=== PATIENT | female | born 1995 | race African-American/Black ===

== ENCOUNTER 2016-07-26 22:25 | Emergency (ER) | payer MEDICAID ==
[2016-07-26 22:58] VITALS: BP 132/77
== END 2016-07-27 01:00 | disposition left against medical advice (07) ==
LOC: ER 22:25
DX: Z53.9 Procedure and treatment not carried out, unspecified reason (principal); R10.30 Lower abdominal pain, unspecified

== ENCOUNTER → 2016-09-06 | Outpatient (CLI) | payer MEDICAID | LOC: RAD 07:47 | PROVIDERS: ATTEND Nurse Practitioner Women's Health | DX: Z34.82 Encounter for supervision of other normal pregnancy, second trimester (principal) | CPT/HCPCS: 76805 ==

== ENCOUNTER 2016-09-16 16:59 | Emergency (ER) | payer OTHER, MEDICAID ==
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
[2016-09-16 18:09] VITALS: BP 108/61
== END 2016-09-16 18:09 | disposition admitted as inpatient to this hospital (09) ==
LOC: ER 16:59
DX: O9A.213 Injury, poisoning and certain other consequences of external causes complicating pregnancy, third trimester (principal); T14.90 Injury, unspecified; O26.893 Other specified pregnancy related conditions, third trimester; R10.9 Unspecified abdominal pain; O99.519 Diseases of the respiratory system complicating pregnancy, unspecified trimester; J45.909 Unspecified asthma, uncomplicated; Z3A.00 Weeks of gestation of pregnancy not specified
CPT/HCPCS: 99284

== ENCOUNTER 2016-09-16 18:03 | Outpatient (CLI) | payer OTHER, MEDICAID ==
--- NOTE | 2016-09-16 20:00 | L&D Flow Sheet ---
LD Flowsheet Datetime Report Generated by CPN: 09/16/2016 20:00 Datetime: 09/16/2016 19:56 Vital Signs NBP Sys/Sadie/Mean (mmHg): 107 (QS system process) : 57 (QS system process) : 78 (QS system process) Pulse: 75 (QS system process) Datetime: 09/16/2016 19:50 Vital Signs NBP Sys/Sadie/Mean (mmHg): 116 (QS system process) : 59 (QS system process) : 81 (QS system process) Pulse: 86 (QS system process) Datetime: 09/16/2016 19:39 Comments: pt done eating. pt up to bathroom to obtain CCUA. pt to return to bed for FHR tracing (Britany Chalman, RN) Datetime: 09/16/2016 19:27 Vital Signs NBP Sys/Sadie/Mean (mmHg): 133 (QS system process) : 87 (QS system process) : 105 (QS system process) Pulse: 80 (QS system process) Comments: unable to trace FHR while pt sitting up eating. Will obtain FHR when pt finished (Britany Manzo, RN) Datetime: 09/16/2016 19:26 Communication Additional Nursing Comments: report from H. Christiane and care assumed (Britany Chalman, RN) Datetime: 09/16/2016 19:25 Communication Comments: Report to A. Chalman, RN. Care relinquished (Arlet Coates, RN) Datetime: 09/16/2016 19:23 Communication Comments: RN remains at bedside attempting to locate fhts. (Arlet Coates, RN) Datetime: 09/16/2016 19:03 Patient Care Patient Care Comments: patient sitting up (Lulú Christiane, RN) Datetime: 09/16/2016 18:58 Contraction Comments: RN at bedside attempting to locate fhts. Baby audibly moving on monitor (Lulú Christiane, RN) Datetime: 09/16/2016 18:57 Vital Signs NBP Sys/Sadie/Mean (mmHg): 126 (QS system process) : 67 (QS system process) : 90 (QS system process) Pulse: 82 (QS system process) Datetime: 09/16/2016 18:48 Comments: Rn at bedside attempting to locate fhts (Lulú Christiane, RN) Datetime: 09/16/2016 18:45 Uterine Activity Frequency (min): 0 (Lulú Christiane, RN) Resting Tone (Palpate): Relaxed (Lulú Christiane, RN) Assessment A Monitor Mode: External US (Lulú Christiane, RN) FHR Baseline Rate : 140 (Lulú Christiane, RN) Variability: Moderate 6-25 bpm (Lulú Christiane, RN) Accelerations: None (Lulú Christiane, RN) Decelerations: None (Lulú Christiane, RN) Datetime: 09/16/2016 18:29 Vaginal Exam Vaginal Bleeding: None (Lulú Christiane, RN) Maternal Assessment Level of Consciousness: Fully Conscious (Lulú Christiane, RN) DTR's/Clonus: DTRs 1+; No Clonus (Lulú Christiane, RN) Headache: Generalized (Lulú Christiane, RN) Breath Sounds, Left: Clear and Equal (Lulú Christiane, RN) Breath Sounds, Right: Clear and Equal (Lulú Christiane, RN) Nausea/Vomiting: Denies (Lulú Christiane, RN) RUQ Epigastric Pain: Denies (Lulú Christiane, RN) Datetime: 09/16/2016 18:27 Vital Signs NBP Sys/Sadie/Mean (mmHg): 113 (QS system process) : 57 (QS system process) : 79 (QS system process) Pulse: 85 (QS system process)
[2016-09-16 20:14] LABS: APPEARANCE,URINE SLIGHTLY-CLOUDY; BILIRUBIN,URINE NEGATIVE (NEGATIVE); GLUCOSE, URINE NEGATIVE (NEGATIVE); KETONES,URINE NEGATIVE (NEGATIVE); LEUKOCYTE ESTERASE,URINE SMALL (NEGATIVE); NITRITE,URINE NEGATIVE (NEGATIVE); PROTEIN,URINE NEGATIVE (NEGATIVE)
[2016-09-16 20:22] LABS: URINE BARBITURATES SCREEN NEGATIVE; URINE METHADONE SCREEN NEGATIVE; URINE OPIATES LOW NEGATIVE; URINE PHENCYCLIDINE SCREEN NEGATIVE
== END 2016-09-16 20:55 | disposition home or self-care (01) ==
LOC: LC 18:03
PROVIDERS: ATTEND Obstetrics & Gynecology
PROC: 4A1HXCZ Monitoring of Products of Conception, Cardiac Rate, External Approach (ICD-10-PCS; principal; 2016-09-16)
DX: O26.893 Other specified pregnancy related conditions, third trimester (principal); R51 Headache; Z3A.36 36 weeks gestation of pregnancy
CPT/HCPCS: 59025; 81001; 80307; G0480 ×2

== ENCOUNTER 2016-10-30 01:01 | Emergency (ER) | payer MEDICAID, OTHER ==
[2016-10-30 01:09] VITALS: BP 132/81
--- NOTE | 2016-10-30 01:36 | ER Document Report ---
ED General - General Chief Complaint: Foreign Body in Ear Stated Complaint: RIGHT EAR PAIN Time Seen by Provider: 10/30/16 01:23 Notes: Patient is a 21-year-old female presents with concerns of a foreign body in her right ear. States she is worried or that a tyler has crawled into her right ear canal. Describes a constant, itching, feeling of a foreign body to the ear. No history of similar symptoms in the past. She tried flushing the ear with water without improvement of her symptoms. Nothing worsens or symptoms. She arrived by EMS. TRAVEL OUTSIDE OF THE [place] IN LAST 30 DAYS: No - Related Data Allergies/Adverse Reactions: No Known Drug Allergies Allergy (Verified 10/30/16 01:39) tomato [Tomato] Adverse Reaction (Verified 10/30/16 01:39) Past Medical History - General Information source: Patient - Social History Smoking Status: Never Smoker Frequency of alcohol use: None Drug Abuse: None Lives with: Family Family History: Reviewed & Not Pertinent - Past Medical History Cardiac Medical History: Denies: Hx Congestive Heart Failure, Hx Coronary Artery Disease, Hx Hypertension, Hx Pulmonary Embolism, Hx Heart Murmur Pulmonary Medical History: Reports: Hx Asthma Denies: Hx Bronchitis, Hx COPD, Hx Pneumonia, Hx Sleep Apnea, Hx Tuberculosis Renal/ Medical History: Denies: Hx Peritoneal Dialysis Malignancy Medical History: Denies: Hx Leukemia, Hx Lung Cancer GI Medical History: Reports: Hx Ulcer Infectious Medical History: Denies: Hx HIV Past Surgical History: Denies: Hx Cardiac Catheterization, Hx Pacemaker, Hx Valve Replacement, Hx Vascular Surgery - Immunizations Immunizations up to date: Yes Hx Diphtheria, Pertussis, Tetanus Vaccination: Yes Review of Systems - Review of Systems Notes: Constitutional: Negative for fever. Cardiovascular: Negative for chest pain. Respiratory: Negative for shortness of breath. Gastrointestinal: Negative for vomiting Musculoskeletal: Negative for back pain. Skin: Negative for rash. Neurological: Negative for weakness or numbness. 10 point ROS negative except as marked above and in HPI. Physical Exam - Vital signs Vitals: Temp Pulse Resp BP Pulse Ox 98.4 F 86 18 132/81 H 99 10/30/16 01:07 10/30/16 01:07 10/30/16 01:07 10/30/16 01:07 10/30/16 01:07 Interpretation: Normal Notes: PHYSICAL EXAMINATION: GENERAL: Well-appearing, well-nourished and in no acute distress. HEAD: Atraumatic, normocephalic. EYES: sclera anicteric, conjunctiva are normal. ENT: There is a small amount of impacted cerumen in the right middle ear canal which was removed without difficulty. There is no evidence of a foreign body. NECK: Normal range of motion LUNGS: Normal work of breathing HEART: 2+ radial pulses bilaterally EXTREMITIES: no pitting or edema. No cyanosis. NEUROLOGICAL: No focal neurological deficits. Moves all extremities spontaneously and on command. PSYCH: Normal mood, normal affect. SKIN: Warm, Dry, normal turgor, no rashes or lesions noted. Course - Re-evaluation Re-evalutation: 10/30/16 01:34 Patient presents with a feeling of a foreign body in her right ear. A piece of impacted cerumen was removed. TM was otherwise clear. No evidence of otitis media or otitis externa. No additional concerns. At this time will discharge with return precautions and follow-up recommendations. Verbal discharge instructions given a the bedside and opportunity for questions given. Medication warnings reviewed. Patient is in agreement with this plan and has verbalized understanding of return precautions and the need for primary care follow-up in the next 24-72 hours. - Vital Signs Vital signs: Temp Pulse Resp BP Pulse Ox 98.4 F 86 18 132/81 H 99 10/30/16 01:07 10/30/16 01:07 10/30/16 01:07 10/30/16 01:07 10/30/16 01:07 Discharge - Discharge Clinical Impression: Discomfort of right ear Condition: Good Disposition: HOME, SELF-CARE Additional Instructions: Return for any additional concerns that you may have. The sensation of a foreign body in your ear may last for the next several days but there is nothing remaining in her ear after we removed the piece of wax.
== END 2016-10-30 01:41 | disposition home or self-care (01) ==
LOC: ER 01:01
DX: H61.21 Impacted cerumen, right ear (principal); L29.9 Pruritus, unspecified; J45.909 Unspecified asthma, uncomplicated
CPT/HCPCS: 99282

== ENCOUNTER 2016-12-05 19:47 | Outpatient (CLI) | payer MEDICAID ==
[2016-12-05 20:25] LABS: APPEARANCE,URINE CLOUDY; BILIRUBIN,URINE NEGATIVE (NEGATIVE); GLUCOSE, URINE NEGATIVE (NEGATIVE); KETONES,URINE NEGATIVE (NEGATIVE); LEUKOCYTE ESTERASE,URINE TRACE (NEGATIVE); NITRITE,URINE NEGATIVE (NEGATIVE); PROTEIN,URINE NEGATIVE (NEGATIVE)
[2016-12-05 20:37] LABS: URINE BARBITURATES SCREEN NEGATIVE; URINE METHADONE SCREEN NEGATIVE; URINE OPIATES LOW NEGATIVE; URINE PHENCYCLIDINE SCREEN NEGATIVE
--- NOTE | 2016-12-09 08:58 | Non Stress Test Report ---
Non Stress Test Datetime Report Generated by CPN: 12/09/2016 08:57 DEMOGRAPHIC EGA NST: 38.5 INDICATION Indication for Study: Other Indication for Study (NST) Other: LC MONITORING Monitor Explained: Monitor Explained; Test Explained; Other Time on Monitor: 12/05/2016 20:00 Time off Monitor: 12/05/2016 20:55 NST Duration: 55 NST INTERVENTIONS NST Interventions: PO Hydration Physician Notified NST: Dr. St BABY A: [id number] BABY A Movement : Present Movement : Present Contraction Frequency : 0 FHR Baseline : 125 Accelerations : 15X15 Variability : Moderate 6-25bpm NST Review: Meets Criteria for Reactive NST NST Review and Verified By : Sheldon Sharp RN NST Results: Reactive NST REPORT Report Trigger: Send Report
== END 2016-12-05 21:13 | disposition home or self-care (01) ==
LOC: LC 19:47
PROVIDERS: ATTEND Obstetrics & Gynecology
PROC: 4A1HXCZ Monitoring of Products of Conception, Cardiac Rate, External Approach (ICD-10-PCS; principal; 2016-12-05)
DX: O47.1 False labor at or after 37 completed weeks of gestation (principal); O99.613 Diseases of the digestive system complicating pregnancy, third trimester; K59.00 Constipation, unspecified; Z3A.38 38 weeks gestation of pregnancy
CPT/HCPCS: 59025; 80307; 81005

== ENCOUNTER 2016-12-09 09:53 | Inpatient (IN) | payer MEDICAID ==
--- NOTE | 2016-12-09 11:21 | RADIOLOGY REPORT (SQ) ---
EXAM DESCRIPTION: U/S OB LIMITED COMPLETED DATE/TIME: 12/09/2016 10:58 am REASON FOR STUDY: fani-growth scan COMPARISON: None. TECHNIQUE: Limited transvaginal grayscale ultrasound for evaluation of specific requested obstetrica l parameters. LIMITATIONS: None. FINDINGS: FANI: 7.5 cm. FHR: 136 beats per minute. PRESENTATION: Cephalic. OTHER: measurements correspond to a 35 week 3 day gestation. The estimated weight is 268 2 g +/-390 7 g. Posterior placenta is identified. IMPRESSION: LIMITED OBSTETRICAL ULTRASOUND WITH MEASURED PARAMETERS DELINEATED ABOVE. Trimester of : Third trimester - 28 weeks to delivery. TECHNICAL DOCUMENTATION: JOB ID: [id number] [employer]- All Rights Reserved
--- NOTE | 2016-12-09 11:42 | Non Stress Test Report ---
Non Stress Test Datetime Report Generated by CPN: 12/09/2016 11:42 DEMOGRAPHIC EGA NST: 39.5 INDICATION Indication for Study: Other Indication for Study (NST) Other: postdates 39.5 VITAL SIGNS Temperature - NST: 97.7 Pulse - NST: 100 RESP - NST: 18 NBPSYS NST: 130 NBPDIA NST: 71 MONITORING Monitor Explained: Monitor Explained; Test Explained; Patient Verbalized Understanding Time on Monitor: 12/09/2016 10:09 NST INTERVENTIONS NST Interventions: PO Hydration Physician Notified NST: H John CNM BABY A Movement : Present Contraction Frequency : 0 FHR Baseline : 125 Accelerations : 15X15 Decelerations : None Variability : Moderate 6-25bpm NST Review: Meets Criteria for Reactive NST NST Review and Verified By : Afshin Sow [facility] NST Results: Reactive NST REPORT Report Trigger: Send Report
[2016-12-09] MEDS ORDERED: RINGERS SOLUTION,LACTATED 300 ML IV ONE ×2 (12:23→23:37)
[2016-12-09] MEDS ORDERED: OXYTOCIN/NORMAL SALINE 1,000 ML IV PRN (12:23)
[2016-12-09] MEDS ORDERED: RINGERS SOLUTION,LACTATED 1,000 ML IV PRN ×2 (12:23→23:37)
[2016-12-09 12:56] LABS: ABSOLUTE EOSINOPHILS # (AUTO) 0.1 10^3/uL (0.0-0.6); ABSOLUTE LYMPHOCYTES (AUTO) 1.8 10^3/uL (0.5-4.7); ABSOLUTE MONOCYTES (AUTO) 0.9 10^3/uL (0.1-1.4); ABSOLUTE NEUT (AUTO) 5.5 10^3/uL (1.7-8.2); BASOPHILS % (AUTO) 0.6 % (0-2); EOSINOPHILS % (AUTO) 1.4 % (0-6); HEMATOCRIT 32.5 % (36.0-47.0); HEMOGLOBIN 10.2 g/dL (12.0-15.5); HGB HCT DIFFERENCE -1.9; LYMPHOCYTES % (AUTO) 21.4 % (13-45); MEAN CORPUSCULAR HEMOGLOBIN 26.4 pg (27.0-33.4); MEAN CORPUSCULAR HGB CONC 31.5 g/dL (32.0-36.0); MEAN CORPUSCULAR VOLUME 84 fl (80-97); MONOCYTES % (AUTO) 10.4 % (3-13); RED BLOOD COUNT 3.88 10^6/uL (3.72-5.28); SEGMENTED NEUTROPHILS % (AUTO) 66.2 % (42-78); WHITE BLOOD COUNT 8.3 10^3/uL (4.0-10.5)
[2016-12-09] MEDS ORDERED: OXYTOCIN/NORMAL SALINE 0 UNIT/0 ML RTUINJ ONE (13:44)
--- NOTE | 2016-12-09 17:00 | L&D Progress Notes ---
PROGRESS NOTES Datetime Report Generated by CPN: 12/09/2016 16:59 PROGRESS NOTE Impression: Normal Progression of Labor; Reassuring Heart Rate Procedures: Artificial ROM; Sterile Vag Exam Plan: Continue Present Management Informed Consent Obtained: Vaginal Delivery Vital Signs : Reviewed Comment: Denies need for pain medication AROM clear Continue pitocin anticipate VAGINAL EXAM Dilatation: 4 Dilatation: 2 Effacement: 80 Effacement: 60 Station: 0 Station: -1 Contractions: 2-4 Contractions: irrewgular MEMBRANES Membranes: Ruptured Membranes: Intact Amniotic Fluid Color: Clear FETUS A FHR - Baseline: 135 Monitoring: External US Variability: Moderate 6-25bpm Accelerations: 15X15 Decelerations: None FHR Category: Category I Estimated Weight (gm): 2682 Presentation: Vertex SIGNATURE SIGNATURE: [id number];,[id number] SIGNATURE: [id number] SIGNATURE: [id number] Assignment: Alicia Jarvis MD Signature: with User ID: [email or web address] : with User ID: Lisa
[2016-12-09] MEDS ORDERED: MISOPROSTOL 0.2 MG TABLET ONE ×2 (17:26→21:03)
[2016-12-09] MEDS ORDERED: OXYTOCIN/NORMAL SALINE 20 UNIT/1,000 ML RTUINJ ONE ×2 (17:26→21:03)
[2016-12-09] MEDS ORDERED: LIDOCAINE 1% INJ-PF (10 MG/ML) 30 ML SDV ONE ×2 (17:26→21:03)
[2016-12-09 17:27] LABS: APPEARANCE,URINE CLEAR; BILIRUBIN,URINE NEGATIVE (NEGATIVE); GLUCOSE, URINE NEGATIVE (NEGATIVE); KETONES,URINE 20 mg/dL (NEGATIVE); LEUKOCYTE ESTERASE,URINE NEGATIVE (NEGATIVE); NITRITE,URINE NEGATIVE (NEGATIVE); PROTEIN,URINE NEGATIVE (NEGATIVE); URINE SPECIFIC GRAVITY 1.018
[2016-12-09 17:45] LABS: URINE BARBITURATES SCREEN NEGATIVE; URINE METHADONE SCREEN NEGATIVE; URINE OPIATES LOW NEGATIVE; URINE PHENCYCLIDINE SCREEN NEGATIVE
[2016-12-09] MEDS ORDERED: PHENYLEPHRINE HCL INJ/PF 10 MG/1 ML SDV ONE (22:54)
[2016-12-09] MEDS ORDERED: EPHEDRINE SULFATE INJ 50 MG/1 ML AMPULE ONE (22:54)
[2016-12-09] MEDS ORDERED: FENTANYL CITRATE INJ/PF 100 MCG/2 ML AMPUL ONE (22:54)
[2016-12-09] MEDS ORDERED: BUPIVACAINE HCL 0.25 % INJ/PF (2.5 MG/1 ML) 30 ML VIAL ONE (22:55)
[2016-12-09] MEDS ORDERED: FENTANYL/BUPIVACAINE/NS/PF 200 MCG/100 ML RTUINJ EPI ONE (22:55)
[2016-12-09] MEDS ORDERED: DEXTROSE 5%-LACTATED RINGERS 1,000 ML IV PRN (23:32)
[2016-12-10] MEDS ORDERED: GLYCERIN/WITCH HAZEL LEAF 1 EACH MED..PAD TP PRN (02:08)
[2016-12-10] MEDS ORDERED: DIPH/PERTUSS(ACELL)/TETANUS VAC/PF 0.5 ML SYR (>=10YO) IM PRN (02:08)
[2016-12-10] MEDS ORDERED: PROMETHAZINE HCL 25 MG TABLET PO PRN (02:08)
[2016-12-10] MEDS ORDERED: PSEUDOEPHEDRINE HCL 30 MG TABLET PO PRN (02:08)
[2016-12-10] MEDS ORDERED: MEASLES,MUMPS&RUBELLA VACC/PF 0.5 ML VIAL SUBCUT PRN (02:08)
[2016-12-10] MEDS ORDERED: MAGNESIUM HYDROXIDE SUSP 30 ML UDCUP PO PRN (02:08)
[2016-12-10] MEDS ORDERED: OXYTOCIN/NORMAL SALINE 1,000 ML IV PRN (02:08)
[2016-12-10] MEDS ORDERED: DIPHENHYDRAMINE HCL 25 MG CAPSULE PO PRN (02:08)
[2016-12-10] MEDS ORDERED: BENZOCAINE/MENTHOL AEROSOL SPRAY 56 ML TOP PRN (02:08)
[2016-12-10] MEDS ORDERED: PROMETHAZINE HCL 25 MG SUPP.RECT PR PRN (02:08)
[2016-12-10] MEDS ORDERED: ACETAMINOPHEN WITH CODEINE #3 TABLET PO PRN (02:08)
[2016-12-10] MEDS ORDERED: PROMETHAZINE HCL INJ 25 MG/1 ML VIAL IV PRN (02:08)
[2016-12-10] MEDS ORDERED: NA PHOS,M-B/NA PHOS,DI-BA (ADULT) 133 ML ENEMA PR PRN (02:08)
[2016-12-10] MEDS ORDERED: ZOLPIDEM TARTRATE 5 MG TABLET PO PRN (02:08)
[2016-12-10] MEDS ORDERED: DIBUCAINE 1% OINTMENT 28 GM TP PRN (02:08)
[2016-12-10] MEDS ORDERED: ACETAMINOPHEN 650 MG SUPP.RECT PR PRN (02:08)
[2016-12-10] MEDS: IBUPROFEN 800 MG TABLET PO SCH ×3 (03:33→22:04)
[2016-12-10] MEDS ORDERED: IBUPROFEN 800 MG TABLET ONE (03:34)
--- NOTE | 2016-12-10 04:05 | Delivery Summary ---
Del Sum A-C Datetime Report Generated by CPN: 12/10/2016 04:05 DELIVERY PERSONNEL DELIVERY PERSONNEL: [id number] Delivery Doctor:: Alicia Jarvis MD Labor and Delivery Nurse:: Gissel Alvarez RN Nursery Nurse:: Sharmila Keenan RN Nursing Clinical Director/MECHANICAL FITTER: Gloria Delgado CNA MATERNAL INFORMATION Delivery Anesthesia: Epidural Medications After Delivery: Pitocin Bolus-Please Comment Meds After Delivery Comment: Pitocin 20 units/1000 mL NS following delivery of placenta Estimated Blood Loss (ml): 200 Maternal Complications: None Provider Comments: VFI delivered in KAREN presentation with loose body cord. Shoulders and body delivered w/o difficulty. Cord doubly clamped and cut and to maternal abdomen for NRP. Placenta delivered intact spontaneously. FF at U. Good hemostasis post repair. Apgars 7/9. weight pending. placenta sent for IUGR. LABOR SUMMARY EDC: 12/11/2016 00:00 No. Babies in Womb: 1 Attempted: No Labor Anesthesia: Epidural LABOR INFORMATION Reason for Induction: Intrauterine Growth Retardation Onset of Labor: 12/09/2016 16:52 Complete Dilatation: 12/10/2016 01:35 Oxytocin: Induction Group B Beta Strep: negative Antibiotics # of Doses: 0 Antibiotics Time of Last Dose: n/a Steroids Given: None Reason Steroids Not Administered: Not Applicable MEMBRANES Membranes Rupture Method: Artificial Rupture of Membranes: 12/09/2016 16:52 Length of Rupture (hr): 8.95 Amniotic Fluid Color: Clear Amniotic Fluid Amount: Moderate Amniotic Fluid Odor: None STAGES OF LABOR Stage 1 hr: 8 Stage 1 min: 43 Stage 2 hr: 0 Stage 2 min: 14 Stage 3 hr: 0 Stage 3 min: 2 Total Time in Labor hr: 8 Total Time in Labor min: 59 VAGINAL DELIVERY Episiotomy: None Laceration Extension: First Degree Laceration Type: Vaginal Laceration Repair: Yes Laceration Repair Note: superficial first degree labial laceration repaired on left for hemostasis. Sponge Count Correct: Yes Sharps Count Correct: Yes CSECTION DELIVERY Primary Indication: N/A Secondary Indication: N/A CSection Incidence: N/A Labor: N/A Elective: N/A CSection Incision: N/A BABY A INFORMATION Delivery Date/Time: 12/10/2016 01:49 Method of Delivery: Vaginal Born in Route : No : N/A Forceps: N/A Vacuum Extraction: N/A Shoulder Dystocia : No PRESENTATION/POSITION BABY A Presentation: Cephalic Cephalic Presentation: Vertex Vertex Position: Left Occipital Anterior Breech Presentation: N/A PLACENTA INFORMATION BABY A Placenta Delivery Time : 12/10/2016 01:51 Placenta Method of Delivery: Spontaneous Placenta Status: Delivered SCORES BABY A Heart Rate 1 min: >100 bpm Resp Effort 1 min: Slow, Irregular Reflex Irritability 1 min: Cough or Sneeze or Pulls Away Muscle Tone 1 min: Active Motion Color 1 min: Blue/Pale Resuscitation Effort 1 min: Oxygen; PPV/NCPAP SCORE 1 MIN: 7 Heart Rate 5 min: >100 bpm Resp Effort 5 min: Good Cry Reflex Irritability 5 min: Cough or Sneeze or Pulls Away Muscle Tone 5 min: Active Motion Color 5 min: Body [place], Extremities Blue Resuscitation Effort 5 min: N/A SCORE 5 MIN: 9 INFORMATION BABY A Gestational Age at Delivery: 39.6 Gestational Status: Full Term- 39- 40.6 Weeks Infant Outcome : Liveborn Condition : Stable Sex: Female IDENTIFICATION BABY A Verification Date/Time: 12/10/2016 02:47 ID Band Number: [id number] Mother's Name Verified: Yes [facility] RN [facility] Additional Verifying Personnel: RN Keenan/RN Kay WEIGHT/LENGTH BABY A Infant Birthweight (gm): 2836 Weight (lb): 6 Weight (oz): 4 Length (in): 18.00 Length (cm): 45.72 CORD INFORMATION BABY A No. Cord Vessels: 3 Nuchal Cord : N/A Nuchal Cord- Other: body cord Cord Blood Taken: Yes-For Storage (Mom's Blood type +) Infant Suction: Mouth; Nose ASSESSMENT BABY A Complications: Multiple Variable Decels Physical Findings at Delivery: Within Normal Limits Respirations: Appears Normal Skin to Skin: Yes Crop Roller/ALS Called : No Infant Care By: Jocelyn Keenan, RN and RN Kay Transferred To: Remains with Mother BABY B INFORMATION : N/A SIGNATURES Signature: with User ID: [email or web address]
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
[2016-12-10] MEDS: ACETAMINOPHEN WITH CODEINE #3 TABLET PO PRN ×2 (08:17→12:17)
--- NOTE | 2016-12-10 10:09 | PDOC PROGRESS REPORT ---
Subjective-OB Subjective: Post Delivery Day: 1 21 year old. Denies any needs at this time, states lochia is pain is stable, voiding without difficulty. Physical Exam (OB) Vital Signs: Temp Pulse Resp BP Pulse Ox 97.8 F 89 16 121/76 100 12/10/16 08:04 12/10/16 08:04 12/10/16 08:04 12/10/16 08:04 12/10/16 04:30 Intake & Output 12/09/16 12/10/16 12/11/16 06:59 06:59 06:59 Weight 98.4 kg - Lochia Lochia Amount: Small 10-25 ml Lochia Color: Rubra/Red - Abdomen Description: Soft, Round Hernia Present: No Fundal Description: Firm, Midline Fundal Height: u/u - u/2 Objective-Diagnostic Laboratory: 12/09/16 12:37 12/09/16 12/09/16 12/09/16 12:37 12:37 16:30 WBC 8.3 RBC 3.88 Hgb 10.2 L Hct 32.5 L MCV 84 MCH 26.4 L MCHC 31.5 L RDW 14.0 Plt Count 353 Seg Neutrophils % 66.2 Lymphocytes % 21.4 Monocytes % 10.4 Eosinophils % 1.4 Basophils % 0.6 Absolute Neutrophils 5.5 Absolute Lymphocytes 1.8 Absolute Monocytes 0.9 Absolute Eosinophils 0.1 Absolute Basophils 0.0 Urine Color YELLOW Urine Appearance CLEAR Urine pH 6.0 Ur Specific [place] 1.018 Urine Protein NEGATIVE Urine Glucose (UA) NEGATIVE Urine Ketones 20 H Urine Blood NEGATIVE Urine Nitrite NEGATIVE Ur Leukocyte Esterase NEGATIVE Blood Type A POSITIVE Antibody Screen NEGATIVE Assessment and Plan(PN) - Assessment and Plan (1) Acute blood loss anemia Is this a current diagnosis for this admission?: YesPlan: ferrous sulfate increase dietary iron (2) Vaginal delivery Is this a current diagnosis for this admission?: YesPlan: routine pp care - Time Spent with Patient Time with patient: Less than 15 minutes Critical Time spent with patient: Less than 15 minutes Medications reviewed and adjusted accordingly: Yes - Disposition Anticipated Discharge: Home Within: within 24 hours
[2016-12-10] MEDS: FAMOTIDINE 20 MG TABLET PO SCH ×2 (10:58→22:04)
[2016-12-10] MEDS: DOCUSATE SODIUM 100 MG CAPSULE PO SCH ×2 (10:58→18:44)
[2016-12-10] MEDS: FERROUS SULFATE 325 MG TABLET PO SCH ×2 (10:59→18:44)
[2016-12-10] MEDS: PRENATAL VITAMIN W-O CA NO5/FE FUMARATE/FA CAPSULE PO SCH (10:59)
[2016-12-10] MEDS: SENNOSIDES/DOCUSATE 8.6-50 MG 1 EACH TABLET PO SCH (10:59)
[2016-12-10] MEDS ORDERED: KETOROLAC TROMETHAMINE INJ/PF 30 MG/1 ML SDV IM ONE (14:00)
[2016-12-11] MEDS: ACETAMINOPHEN WITH CODEINE #3 TABLET PO PRN (02:30)
[2016-12-11] MEDS: IBUPROFEN 800 MG TABLET PO SCH (05:34)
[2016-12-11 07:20] LABS: HEMATOCRIT 28.9 % (36.0-47.0); HEMOGLOBIN 9.2 g/dL (12.0-15.5); HGB HCT DIFFERENCE -1.3; MEAN CORPUSCULAR HEMOGLOBIN 26.5 pg (27.0-33.4); MEAN CORPUSCULAR HGB CONC 31.9 g/dL (32.0-36.0); MEAN CORPUSCULAR VOLUME 83 fl (80-97); RED BLOOD COUNT 3.47 10^6/uL (3.72-5.28); RED CELL DISTRIBUTION WIDTH 14.1 % (11.5-14.0); WHITE BLOOD COUNT 10.1 10^3/uL (4.0-10.5)
[2016-12-11] MEDS: FERROUS SULFATE 325 MG TABLET PO SCH (09:06)
[2016-12-11] MEDS: SENNOSIDES/DOCUSATE 8.6-50 MG 1 EACH TABLET PO SCH (09:06)
[2016-12-11] MEDS: FAMOTIDINE 20 MG TABLET PO SCH (09:06)
[2016-12-11] MEDS: PRENATAL VITAMIN W-O CA NO5/FE FUMARATE/FA CAPSULE PO SCH (09:07)
[2016-12-11] MEDS: DOCUSATE SODIUM 100 MG CAPSULE PO SCH (09:07)
--- NOTE | 2016-12-11 09:11 | PDOC PROGRESS REPORT ---
Subjective-OB Subjective: Post Delivery Day: 2 21 year old. Denies any needs at this time, pt would like d/c if baby is being discharged, bottle feeding, lochia is stable, tolerating diet, voiding without difficulty. Physical Exam (OB) Vital Signs: Temp Pulse Resp BP Pulse Ox 98.1 F 86 18 119/62 100 12/10/16 20:38 12/10/16 20:38 12/10/16 20:38 12/10/16 20:38 12/10/16 20:38 Intake & Output 12/10/16 12/11/16 12/12/16 06:59 06:59 06:59 Intake Total 450 Balance 450 Weight 98.4 kg - Lochia Lochia Amount: Small 10-25 ml Lochia Color: Rubra/Red - Abdomen Description: Soft, Round Hernia Present: No Fundal Description: Firm, Midline Fundal Height: u/u - u/2 Objective-Diagnostic Laboratory: 12/11/16 07:07 12/11/16 07:07 WBC 10.1 RBC 3.47 L Hgb 9.2 L Hct 28.9 L MCV 83 MCH 26.5 L MCHC 31.9 L RDW 14.1 H Plt Count 292 Assessment and Plan(PN) - Assessment and Plan (1) Acute blood loss anemia Is this a current diagnosis for this admission?: YesPlan: ferrous sulfate increase dietary iron (2) Vaginal delivery Is this a current diagnosis for this admission?: YesPlan: routine pp care dc home today as long as baby is d/c home may cancel d/c if baby has to stay. - Time Spent with Patient Time with patient: Less than 15 minutes Critical Time spent with patient: Less than 15 minutes Smoking Education Provided: Over 3 minutes Medications reviewed and adjusted accordingly: Yes - Disposition Anticipated Discharge: Home Within: within 24 hours
--- NOTE | 2016-12-11 09:13 | PDOC DISCHARGE SUMMARY ---
Final Diagnosis Discharge Date: 12/11/16 - Final Diagnosis (1) Acute blood loss anemia Is this a current diagnosis for this admission?: Yes (2) Vaginal delivery Is this a current diagnosis for this admission?: Yes Discharge Data - Discharge Medication Home Medications: Docusate Sodium [Colace 100 mg Capsule] 100 mg PO BID #60 capsule 12/11/16 Ferrous Sulfate [Feosol 325 mg Tablet] 325 mg PO BID #60 tablet 12/11/16 Ibuprofen [Motrin 800 mg Tablet] 800 mg PO Q8 #60 tablet 12/11/16 Gestational Age: 39.6 Reason(s) for Admission: Induction of Labor, Obstetric Complications - IUGR <3% Procedures: NST Intrapartum Procedure(s): Spontaneous Vaginal Delivery Complication(s): Laceration-Vaginal, Laceration-Labial Laceration-Degree: 1st - Data Baby 1 Female at 1 minute: 7 at 5 minutes: 9 Weight: 2836 kg Home with Mother: Yes Complications: Yes - limited pnv @ [facility], iugr - Diagnosis Test Laboratory: Temp Pulse Resp BP Pulse Ox 98.1 F 86 18 119/62 100 12/10/16 20:38 12/10/16 20:38 12/10/16 20:38 12/10/16 20:38 12/10/16 20:38 12/09/16 12/09/16 12/11/16 12:37 16:30 07:07 RBC 3.88 3.47 L Hgb 10.2 L 9.2 L Hct 32.5 L 28.9 L Urine Opiates Screen NEGATIVE - Discharge information/Instructions Discharge Activity: Activity As Tolerated, No Lifting Over 10 Pounds, Pelvic Rest, No tub bath Discharge Diet: Regular Disposition: HOME, SELF-CARE Follow up with: [facility] - PT is NOT to follow up @ [facility] We[facility]
[2016-12-11 09:19] VITALS: BP 132/70
== END 2016-12-11 14:10 | disposition home or self-care (01) | DRG 775 ==
LOC: LC 09:53 → LR 12:21 → UNDOADMIN 12:21 → LR 12:24 → 2S 12-10 04:10
PROVIDERS: ADMIT Student in an Organized Health Care Education/Training Program; ATTEND Student in an Organized Health Care Education/Training Program
PROC: 10907ZC Drainage of Amniotic Fluid, Therapeutic from Products of Conception, Via Natural or Artificial Opening (ICD-10-PCS; 2016-12-09)
PROC: 4A1HXCZ Monitoring of Products of Conception, Cardiac Rate, External Approach (ICD-10-PCS; 2016-12-09)
PROC: 10E0XZZ Delivery of Products of Conception, External Approach (ICD-10-PCS; principal; 2016-12-10)
PROC: 0KQM0ZZ Repair Perineum Muscle, Open Approach (ICD-10-PCS; 2016-12-10)
PROC: 3E033VJ Introduction of Other Hormone into Peripheral Vein, Percutaneous Approach (ICD-10-PCS; 2016-12-10)
DX: O36.5930 Maternal care for other known or suspected poor fetal growth, third trimester, not applicable or unspecified (principal); D62 Acute posthemorrhagic anemia; O71.4 Obstetric high vaginal laceration alone; O99.02 Anemia complicating childbirth; O99.334 Smoking (tobacco) complicating childbirth; F17.210 Nicotine dependence, cigarettes, uncomplicated; O76 Abnormality in fetal heart rate and rhythm complicating labor and delivery; Z91.018 Allergy to other foods; Z3A.39 39 weeks gestation of pregnancy; Z37.0 Single live birth
CPT/HCPCS: 36415; 59025; 76815; 80307; 81005; 85025; 85027; 86592; 86850; 86900; 86901; 88307; 94760; J2370; J2590; J3010; J3490

== ENCOUNTER 2017-02-20 11:50 | Emergency (ER) | payer MEDICAID ==
--- NOTE | 2017-02-20 12:35 | ER Document Report ---
HPI - HPI Patient complains to provider of: Skin rash Onset: Other Onset/Duration: Persistent Quality of pain: No pain Pain Level: Denies Context: Patient complains of skin rash to her hands for the past 5-6 months. Patient states she has a history of eczema and has been using steroid cream and lotion without improvement of her symptoms. Patient denies any new exposures to harsh cleansers or detergents. Associated Symptoms: Other - hand rash Exacerbated by: Denies Relieved by: Denies Similar symptoms previously: Yes Recently seen / treated by doctor: No - ROS ROS below otherwise negative: Yes Systems Reviewed and Negative: Yes All other systems reviewed and negative - CONSTITUTIONAL Constitutional: DENIES: Fever, Chills - CARDIOVASCULAR Cardiovascular: DENIES: Chest pain - MUSCULOSKELETAL Musculoskeletal: DENIES: Swelling - DERM Skin Color: Normal Skin Problems: Rash Past Medical History - General Information source: Patient - Social History Smoking Status: Current Every Day Smoker Chew tobacco use (# tins/day): No Frequency of alcohol use: None Drug Abuse: Marijuana Occupation: none Family History: Reviewed & Not Pertinent Patient has suicidal ideation: No Patient has homicidal ideation: No - Past Medical History Cardiac Medical History: Denies: Hx Congestive Heart Failure, Hx Coronary Artery Disease, Hx Hypertension, Hx Pulmonary Embolism, Hx Heart Murmur Pulmonary Medical History: Reports: Hx Asthma Denies: Hx Bronchitis, Hx COPD, Hx Pneumonia, Hx Sleep Apnea, Hx Tuberculosis Renal/ Medical History: Denies: Hx Peritoneal Dialysis Malignancy Medical History: Denies: Hx Leukemia, Hx Lung Cancer GI Medical History: Reports: Hx Ulcer Skin Medical History: Reports Hx Eczema Infectious Medical History: Denies: Hx HIV Surgical Hx: Negative Past Surgical History: Denies: Hx Cardiac Catheterization, Hx Pacemaker, Hx Valve Replacement, Hx Vascular Surgery - Immunizations Immunizations up to date: Yes Hx Diphtheria, Pertussis, Tetanus Vaccination: Yes Vertical Provider Document - CONSTITUTIONAL Agree With Documented VS: Yes Exam Limitations: No Limitations General Appearance: WD/WN, No Apparent Distress - INFECTION CONTROL TRAVEL OUTSIDE OF THE [place] IN LAST 30 DAYS: No - HEENT HEENT: Atraumatic, Normocephalic - NECK Neck: Normal Inspection - RESPIRATORY Respiratory: Breath Sounds Normal, No Respiratory Distress O2 Sat by Pulse Oximetry: 100 - CARDIOVASCULAR Cardiovascular: Regular Rate, Regular Rhythm - MUSCULOSKELETAL/EXTREMETIES Musculoskeletal/Extremeties: MAEW, FROM - NEURO Level of Consciousness: Awake, Alert, Appropriate Motor/Sensory: No Motor Deficit - DERM Integumentary: Warm, Dry, Rash - Cracked, scaling or rash to antecubital fossa bilateral arms and to lateral surface of left hand third and fourth finger, right hand second and third finger. Rash consistent with history of eczema. No concern for cellulitis or lymphangitis. Course - Vital Signs Vital signs: Temp Pulse Resp BP Pulse Ox 98.0 F 71 14 137/84 H 100 02/20/17 11:55 02/20/17 11:55 02/20/17 11:55 02/20/17 11:55 02/20/17 11:55 Discharge - Discharge Clinical Impression: Eczema Qualifiers: Eczema type: unspecified Qualified Code(s): L30.9 - Dermatitis, unspecified Condition: Stable Disposition: HOME, SELF-CARE Instructions: Atopic Dermatitis (Eczema) ([facility]), Topical Steroid Cream or Ointment ([facility]) Additional Instructions: Return immediately for any new or worsening symptoms Followup with your primary care provider, call tomorrow to make a followup appointment Follow-up with videographer for further evaluation Prescriptions: Betamethasone Dipropionate 1 applic TP DAILY #30 tube Referrals: BAYRON WALLACE DO [ACTIVE STAFF] - Follow up in 1 week [facility] [Provider Group] - Follow up as needed
[2017-02-20 12:54] VITALS: BP 124/74
== END 2017-02-20 12:51 | disposition home or self-care (01) ==
LOC: ER 11:50
DX: L30.9 Dermatitis, unspecified (principal); F17.200 Nicotine dependence, unspecified, uncomplicated
CPT/HCPCS: 99282

== ENCOUNTER → 2017-05-09 | Outpatient (CLI) | payer SELFPAY ==
--- NOTE | 2017-05-09 14:05 | RADIOLOGY REPORT (SQ) ---
EXAM DESCRIPTION: U/S [id number] TRNABD 1GES W/ODOP COMPLETED DATE/TIME: 05/09/2017 1:52 pm REASON FOR STUDY: ENCOUNTER FOR SUPERVISION OF OTHER NORMAL , FIRST TRIMESTER (Z34.8 Z34.81 ENCOUNTER FOR SUPRVSN OF NORMAL , FIRST TRIM COMPARISON: No previous this TECHNIQUE: Endovaginal static and realtime grayscale images acquired of the pelvis. Additional selec jackson spectral and color Doppler images recorded. All images stored on PACs. bHCG: Not available LIMITATIONS: None. FINDINGS: FETUS: Living intrauterine . EGA: 10 weeks 4 days by crown-rump length MARCEL: 12/01/2017 FHR: 165 beats per minute. SUBCHORIONIC BLEED: No SIZE OF BLEED: Not applicable. UTERUS: No masses. No anomalies. Uterus measures 10 x 9 x 9 cm in size CERVICAL LENGTH: 4 cm Closed. RIGHT ADNEXA: Not visualized due to adnexal bowel gas LEFT ADNEXA: Not visualized due to adnexal bowel gas FREE FLUID: None. OTHER: No other significant finding. IMPRESSION: LIVING INTRAUTERINE . EGA 10 weeks 4 days, estimated due date 12/01/2017 Trimester of : First - 0 to 13 weeks. TECHNICAL DOCUMENTATION: JOB ID: [id number] [employer]- All Rights Reserved
== END ==
LOC: RAD 12:46
PROVIDERS: ATTEND Nurse Practitioner Women's Health
DX: Z34.81 Encounter for supervision of other normal pregnancy, first trimester (principal)
CPT/HCPCS: 76801

== ENCOUNTER 2017-06-16 11:10 | Emergency (ER) | payer SELFPAY ==
[2017-06-16] MEDS ORDERED: NORMAL SALINE 1000 ML 1,000 ML IV ONE (11:27)
[2017-06-16] MEDS ORDERED: ACETAMINOPHEN 325 MG TABLET PO ONE (11:29)
--- NOTE | 2017-06-16 11:33 | ER Document Report ---
ED Medical Screen (RME) - General Mode of Arrival: Ambulatory Information source: Patient TRAVEL OUTSIDE OF THE [place] IN LAST 30 DAYS: No - HPI Exacerbated by: Supine, Movement <BURAK ESTRADA - Last Filed: 06/16/17 12:36> <CYNTHIAJOSE FELIX - Last Filed: 06/16/17 13:35> - General Chief Complaint: Abdominal Cramping Stated Complaint: ABDOMINAL CRAMPING Time Seen by Provider: 06/16/17 11:26 Notes: Patient is a 22 year old female presenting to the emergency department complaining of abdominal pain onset weeks ago. Patient states that when she is supine and turns to her side it feels like her "uterus is shifting". Patient states the pain is progressively worsening. Patient denies any abdominal cramping or vaginal bleeding. I have greeted and performed a rapid initial assessment of this patient. A comprehensive ED assessment and evaluation of the patient, analysis of test results and completion of the medical decision making process will be conducted by additional ED providers. (BURAK ESTRADA) - Related Data Allergies/Adverse Reactions: No Known Drug Allergies Allergy (Verified 02/20/17 11:54) tomato [Tomato] Adverse Reaction (Verified 02/20/17 11:54) Home Medications: Current Home Medications Vit Calc,Iron,Folic [ Vitamins] 1 tab PO DAILY 06/16/17 [ History] Past Medical History - General Information source: Patient - Social History Chew tobacco use (# tins/day): No Frequency of alcohol use: Rare Drug Abuse: None Pulmonary Medical History: Reports: Hx Asthma GI Medical History: Reports: Hx Ulcer Skin Medical History: Reports Hx Eczema - Immunizations Immunizations up to date: Yes Hx Diphtheria, Pertussis, Tetanus Vaccination: Yes <BURAK ESTRADA - Last Filed: 06/16/17 12:36> Physical Exam - General General appearance: Appears well, Alert In distress: None - HEENT Head: Normocephalic, Atraumatic Eyes: Normal Conjunctiva: Normal - Respiratory Respiratory status: No respiratory distress Chest status: Nontender - Cardiovascular Rhythm: Regular - Abdominal Inspection: Gravid female - Genitourinary External exam: Other - mild tenderness to pelvic area. - Neurological Neuro grossly intact: Yes Cognition: Normal Orientation: AAOx4 Kirill Coma Scale Eye Opening: Spontaneous Kirill Coma Scale Verbal: Oriented Kirill Coma Scale Motor: Obeys Commands Kirill Coma Scale Total: 15 Speech: Normal <BURAK ESTRADA - Last Filed: 06/16/17 12:36> - Vital signs Vitals: Temp Pulse Resp BP Pulse Ox 98.4 F 82 16 130/57 H 100 06/16/17 11:16 06/16/17 11:16 06/16/17 11:16 06/16/17 11:16 06/16/17 11:16 Course - Laboratory Result Diagrams: 06/16/17 12:00 06/16/17 12:00 <BURAK ESTRADA - Last Filed: 06/16/17 12:36> - Laboratory Result Diagrams: 06/16/17 12:00 06/16/17 12:00 <JOSE MARIE - Last Filed: 06/16/17 13:35> - Re-evaluation Re-evalutation: 06/16/17 13:35 I personally performed the services described in the documentation, reviewed and edited the documentation which was dictated to the scribe in my presence, and it accurately records my words and actions. (JOSE MARIE) - Vital Signs Vital signs: Temp Pulse Resp BP Pulse Ox 98.4 F 82 16 130/57 H 100 06/16/17 11:16 06/16/17 11:16 06/16/17 11:16 06/16/17 11:16 06/16/17 11:16 - Laboratory Laboratory results interpreted by me: 06/16/17 06/16/17 06/16/17 11:58 12:00 12:00 RDW 14.2 H Plt Count 476 H Sodium 135.9 L Beta HCG, Quant 80021.00 H Urine Urobilinogen 4.0 H Scribe Documentation - Scribe Written by Ney:: Ney Gonzales, 06/16/2017 acting as scribe for :: Cnythia <BURAK ESTRADA - Last Filed: 06/16/17 12:36>
[2017-06-16 12:17] LABS: ABSOLUTE EOSINOPHILS # (AUTO) 0.2 10^3/uL (0.0-0.6); ABSOLUTE LYMPHOCYTES (AUTO) 2.2 10^3/uL (0.5-4.7); ABSOLUTE MONOCYTES (AUTO) 0.7 10^3/uL (0.1-1.4); ABSOLUTE NEUT (AUTO) 6.3 10^3/uL (1.7-8.2); BASOPHILS % (AUTO) 0.3 % (0-2); EOSINOPHILS % (AUTO) 1.9 % (0-6); HEMATOCRIT 38.3 % (36.0-47.0); HEMOGLOBIN 12.8 g/dL (12.0-15.5); LYMPHOCYTES % (AUTO) 23.8 % (13-45); MEAN CORPUSCULAR HEMOGLOBIN 30.4 pg (27.0-33.4); MEAN CORPUSCULAR HGB CONC 33.5 g/dL (32.0-36.0); MEAN CORPUSCULAR VOLUME 91 fl (80-97); MONOCYTES % (AUTO) 7.3 % (3-13); PLATELET COUNT 476 10^3/uL (150-450); RED BLOOD COUNT 4.23 10^6/uL (3.72-5.28); RED CELL DISTRIBUTION WIDTH 14.2 % (11.5-14.0); SEGMENTED NEUTROPHILS % (AUTO) 66.7 % (42-78); TOTAL CELLS COUNTED % (AUTO) 100 %; WHITE BLOOD COUNT 9.4 10^3/uL (4.0-10.5)
[2017-06-16 12:24] LABS: APPEARANCE,URINE SLIGHTLY-CLOUDY; BILIRUBIN,URINE NEGATIVE (NEGATIVE); COLOR,URINE YELLOW; GLUCOSE, URINE NEGATIVE (NEGATIVE); KETONES,URINE NEGATIVE (NEGATIVE); LEUKOCYTE ESTERASE,URINE NEGATIVE (NEGATIVE); NITRITE,URINE NEGATIVE (NEGATIVE); PROTEIN,URINE NEGATIVE (NEGATIVE)
[2017-06-16 12:35] LABS: ALANINE AMINOTRANSFERASE 19 U/L (9-52); ALKALINE PHOSPHATASE 91 U/L (38-126); ANION GAP 10 (5-19); ASPARTATE AMINO TRANSFERASE 18 U/L (14-36); BILIRUBIN,DIRECT 0.2 mg/dL (0.0-0.4); BILIRUBIN,TOTAL 0.3 mg/dL (0.2-1.3); BLOOD UREA NITROGEN 7 mg/dL (7-20); CALCIUM 9.8 mg/dL (8.4-10.2); CARBON DIOXIDE 24 mmol/L (22-30); CHLORIDE 102 mmol/L (98-107); GLUCOSE 76 mg/dL (75-110); POTASSIUM 4.1 mmol/L (3.6-5.0); SODIUM 135.9 mmol/L (137-145); TOTAL PROTEIN 7.5 g/dL (6.3-8.2)
--- NOTE | 2017-06-16 13:34 | RADIOLOGY REPORT (SQ) ---
EXAM DESCRIPTION: U/S OB 14+ TRNABD 1GES W/O DOP COMPLETED DATE/TIME: 06/16/2017 1:06 pm REASON FOR STUDY: vag bleed COMPARISON: 05/09/2017 OB ultrasound TECHNIQUE: Static and Dynamic grayscale imaging performed of gravid uterus using transabdominal appr oach. Additional selected color Doppler and spectral images recorded. All stored on PACS. LIMITATIONS: None. FINDINGS: EGA: 16 weeks 3 days MARCEL: 11/28/2017 EFW: 159 grams PERCENTILE: Not applicable. Fetus less than or equal to 20 weeks gestation. FANI: Largest pocket 3.2 cm PLACENTA: Posterior. GRADE: I PRESENTATION: Cephalic. ANATOMY: HEART RATE: 158 beats per minute. FOUR CHAMBER HEART: Visualized. THREE VESSEL CORD: Yes. CORD INSERTION: Not well seen KIDNEYS AND BLADDER: Visualized. Appear normal. STOMACH: Visualized. Appears normal. SPINE: Normal as visualized. BRAIN AND LATERAL VENTRICLES: Visualized. Appear normal. OTHER: No other significant finding. MATERNAL ADNEXA: Maternal ovaries not visualized. CERVICAL LENGTH: 3.3 cm Closed. OTHER: No other significant finding. IMPRESSION: LIVING INTRAUTERINE . ESTIMATED GESTATIONAL AGE 16 weeks 3 days NO VISUALIZED ANOMALIES. Trimester of : Second trimester - 13 weeks 1 day to 27 weeks 6 days. TECHNICAL DOCUMENTATION: JOB ID: [id number] [employer]- All Rights Reserved
--- NOTE | 2017-06-16 14:07 | ER Document Report ---
ED General - General Chief Complaint: Abdominal Cramping Stated Complaint: ABDOMINAL CRAMPING Time Seen by Provider: 06/16/17 11:26 Mode of Arrival: Ambulatory Information source: Patient Notes: 22-year-old female who is unknown date presents with complaints of pelvic pain. Patient noted that she is spotting but on my evaluation she admits that she feels a popping sensation in her pelvis and believes it is her uterus going back and forth every time she coughs or moves. Patient denies any fevers or chills denies any nausea vomiting or diarrhea TRAVEL OUTSIDE OF THE [place] IN LAST 30 DAYS: No - HPI Onset: Other Onset/Duration: Intermittent Quality of pain: Sharp Severity: Mild Pain Level: 1 Associated symptoms: Other Exacerbated by: Denies Relieved by: Denies Similar symptoms previously: Yes Recently seen / treated by doctor: Yes - Related Data Allergies/Adverse Reactions: No Known Drug Allergies Allergy (Verified 02/20/17 11:54) tomato [Tomato] Adverse Reaction (Verified 02/20/17 11:54) Home Medications: Current Home Medications Vit Calc,Iron,Folic [ Vitamins] 1 tab PO DAILY 06/16/17 [ History] Past Medical History - General Information source: Patient - Social History Smoking Status: Current Some Day Smoker Cigarette use (# per day): Yes Chew tobacco use (# tins/day): No Smoking Education Provided: No Frequency of alcohol use: Rare Drug Abuse: None Family History: Reviewed & Not Pertinent Patient has suicidal ideation: No Patient has homicidal ideation: No - Past Medical History Cardiac Medical History: Denies: Hx Congestive Heart Failure, Hx Hypertension Pulmonary Medical History: Reports: Hx Asthma Denies: Hx Bronchitis, Hx COPD, Hx Pneumonia, Hx Tuberculosis Renal/ Medical History: Denies: Hx Peritoneal Dialysis GI Medical History: Reports: Hx Ulcer Skin Medical History: Reports Hx Eczema - Immunizations Immunizations up to date: Yes Hx Diphtheria, Pertussis, Tetanus Vaccination: Yes Review of Systems - Review of Systems Notes: REVIEW OF SYSTEMS: CONSTITUTIONAL : Denies fever, chills, or sweats. Denies recent illness. EENT: Denies eye, ear, throat, or mouth pain or symptoms. Denies nasal or sinus congestion or discharge. Denies throat, tongue, or mouth swelling or difficulty swallowing. CARDIOVASCULAR: Denies chest pain. Denies palpitations or racing or irregular heart beat. Denies ankle edema. RESPIRATORY: Denies cough, cold, or chest congestion. Denies shortness of breath, difficulty breathing, or wheezing. GASTROINTESTINAL: Denies abdominal pain or distention. Denies nausea, vomiting , or diarrhea. Denies blood in vomitus, stools, or per rectum. Denies black, tarry stools. Denies constipation. GENITOURINARY: Denies difficulty urinating, painful urination, burning, frequency, blood in urine, or discharge. FEMALE GENITOURINARY: Admits to vaginal spotting MUSCULOSKELETAL: Denies back or neck pain or stiffness. Denies joint pain or swelling. SKIN: Denies rash, lesions or sores. HEMATOLOGIC : Denies easy bruising or bleeding. LYMPHATIC: Denies swollen, enlarged glands. NEUROLOGICAL: Denies confusion or altered mental status. Denies passing out or loss of consciousness. Denies dizziness or lightheadedness. Denies headache. Denies weakness or paralysis or loss of use of either side. Denies problems with gait or speech. Denies sensory loss, numbness, or tingling. Denies seizures. PSYCHIATRIC: Denies anxiety or stress. Denies depression, suicidal ideation, or homicidal ideation. ALL OTHER SYSTEMS REVIEWED AND NEGATIVE. PHYSICAL EXAMINATION: GENERAL: Well-appearing, well-nourished and in no acute distress. HEAD: Atraumatic, normocephalic. EYES: Pupils equal round and reactive to light, extraocular movements intact, conjunctiva are normal. ENT: Nares patent, oropharynx clear without exudates. Moist mucous membranes. NECK: Normal range of motion, supple without lymphadenopathy LUNGS: Breath sounds clear to auscultation bilaterally and equal. No wheezes rales or rhonchi. HEART: Regular rate and rhythm without murmurs ABDOMEN: Soft, nontender, nondistended abdomen. No guarding, no rebound. No masses appreciated. Female : deferred Musculoskeletal: Normal range of motion, no pitting or edema. No cyanosis. NEUROLOGICAL: Cranial nerves grossly intact. Normal speech, normal gait. Normal sensory, motor exams PSYCH: Normal mood, normal affect. SKIN: Warm, Dry, normal turgor, no rashes or lesions noted. Dictation was performed using [employer] voice recognition software Physical Exam - Vital signs Vitals: Temp Pulse Resp BP Pulse Ox 98.4 F 82 16 130/57 H 100 06/16/17 11:16 06/16/17 11:16 06/16/17 11:16 06/16/17 11:16 06/16/17 11:16 Course - Re-evaluation Re-evalutation: 06/16/17 14:08 Ultrasound was performed, results and imaging were provided to the patient, she overall looks well is in no distress has Apsley no tenderness, I did explain to her concerns if she is actually bleeding however she denies this to me After performing a Medical Screening Examination, I estimate there is LOW risk for ACUTE APPENDICITIS, BOWEL OBSTRUCTION, ACUTE CHOLECYSTITIS, PERFORATED DIVERTICULITIS, INCARCERATED HERNIA, PANCREATITIS, PELVIC INFLAMMATORY DISEASE, PERFORATED ULCER, ECTOPIC , or TUBO-OVARIAN ABSCESS, thus I consider the discharge disposition reasonable. Also, there is no evidence or peritonitis , sepsis, or toxicity. I have reevaluated this patient multiple times and no significant life threatening changes are noted. The patient and I have discussed the diagnosis and risks, and we agree with discharging home with close follow-up with the understanding that symptoms and presentations can change. We also discussed returning to the Emergency Department immediately if new or worsening symptoms occur. We have discussed the symptoms which are most concerning (e.g., bloody stool, fever, changing or worsening pain, vomiting) that necessitate immediate return. - Vital Signs Vital signs: Temp Pulse Resp BP Pulse Ox 98.4 F 82 16 130/57 H 100 06/16/17 11:16 06/16/17 11:16 06/16/17 11:16 06/16/17 11:16 06/16/17 11:16 - Laboratory Result Diagrams: 06/16/17 12:00 06/16/17 12:00 Laboratory results interpreted by me: 06/16/17 06/16/17 06/16/17 11:58 12:00 12:00 RDW 14.2 H Plt Count 476 H Sodium 135.9 L Beta HCG, Quant 73854.00 H Urine Urobilinogen 4.0 H - Diagnostic Test Radiology reviewed: Image reviewed, Reports reviewed - Reports given to patient Discharge - Discharge Clinical Impression: Pelvic pain affecting Qualifiers: Trimester: second trimester Qualified Code(s): O26.892 - Other specified related conditions, second trimester; R10.2 - Pelvic and perineal pain ; R10.2 - Pelvic and perineal pain Condition: Stable Disposition: HOME, SELF-CARE Instructions: Pelvic Pain in and Round Ligament Pain ([facility]) Additional Instructions: Please follow-up with your [facility]CH[facility] HAND or return immediately if there are any other concerns
[2017-06-16 14:22] VITALS: BP 127/61
== END 2017-06-16 14:21 | disposition home or self-care (01) ==
LOC: ER 11:10
DX: O26.892 Other specified pregnancy related conditions, second trimester (principal); R10.2 Pelvic and perineal pain; O26.852 Spotting complicating pregnancy, second trimester; O99.512 Diseases of the respiratory system complicating pregnancy, second trimester; J45.909 Unspecified asthma, uncomplicated; O99.332 Smoking (tobacco) complicating pregnancy, second trimester; F17.210 Nicotine dependence, cigarettes, uncomplicated; Z3A.00 Weeks of gestation of pregnancy not specified
CPT/HCPCS: 99284; 96360; 86900; 86901; 36415; 84702; 85025; 80053; 81001; 76805; J7030

== ENCOUNTER → 2017-08-30 | Outpatient (CLI) | payer MEDICAID ==
--- NOTE | 2017-08-30 14:27 | RADIOLOGY REPORT (SQ) ---
EXAM DESCRIPTION: U/S OB 14+ TRNABD 1GES W/O DOP COMPLETED DATE/TIME: 08/30/2017 1:44 pm REASON FOR STUDY: Z34.82 ENCOUNTER FOR SUPRVSN OF NORMAL , SECOND TRIMESTER Z34.82 ENCOUNT ER FOR SUPRVSN OF NORMAL , SECOND TRI COMPARISON: 06/16/2017 TECHNIQUE: Static and Dynamic grayscale imaging performed of gravid uterus using transabdominal appr oach. Additional selected color Doppler and spectral images recorded. All stored on PACS. LIMITATIONS: None. FINDINGS: EGA: 26 weeks 4 days MARCEL: 12/02/2017 EFW: 926+/- 137 grams PERCENTILE: 42 FANI: Largest pocket 6.8 cm PLACENTA: Posterior grade 1 PRESENTATION: Cephalic. ANATOMY: HEART RATE: 160 beats per minute. FOUR CHAMBER HEART: Visualized. THREE VESSEL CORD: Yes. CORD INSERTION: Visualized. KIDNEYS AND BLADDER: Visualized. Appear normal. STOMACH: Visualized. Appears normal. SPINE: Normal as visualized. BRAIN AND LATERAL VENTRICLES: Lateral ventricles not visualized. OTHER: No other significant finding. MATERNAL ADNEXA: Maternal ovaries not visualized. CERVICAL LENGTH: 3.2 cm Closed. OTHER: No other significant finding. IMPRESSION: LIVING INTRAUTERINE . ESTIMATED GESTATIONAL AGE 26 weeks 4 day NO VISUALIZED ANOMALIES. Trimester of : Second trimester - 13 weeks 1 day to 27 weeks 6 days. TECHNICAL DOCUMENTATION: JOB ID: [id number] [employer]- All Rights Reserved Reading location - IP/workstation name: [email or web address]
== END ==
LOC: RAD 13:24
PROVIDERS: ATTEND Nurse Practitioner Women's Health
DX: Z34.82 Encounter for supervision of other normal pregnancy, second trimester (principal)
CPT/HCPCS: 76805

== ENCOUNTER 2017-09-17 00:01 | Outpatient (CLI) | payer MEDICAID ==
[2017-09-17 01:06] LABS: ABSOLUTE BASOPHILS # (AUTO) 0.1 10^3/uL (0.0-0.2); ABSOLUTE EOSINOPHILS # (AUTO) 0.2 10^3/uL (0.0-0.6); ABSOLUTE LYMPHOCYTES (AUTO) 1.7 10^3/uL (0.5-4.7); ABSOLUTE MONOCYTES (AUTO) 0.9 10^3/uL (0.1-1.4); ABSOLUTE NEUT (AUTO) 7.8 10^3/uL (1.7-8.2); BASOPHILS % (AUTO) 0.7 % (0-2); HEMATOCRIT 33.1 % (36.0-47.0); HEMOGLOBIN 10.7 g/dL (12.0-15.5); LYMPHOCYTES % (AUTO) 15.7 % (13-45); MEAN CORPUSCULAR HEMOGLOBIN 28.2 pg (27.0-33.4); MEAN CORPUSCULAR HGB CONC 32.2 g/dL (32.0-36.0); MEAN CORPUSCULAR VOLUME 87 fl (80-97); MONOCYTES % (AUTO) 8.1 % (3-13); PLATELET COUNT 388 10^3/uL (150-450); RED BLOOD COUNT 3.79 10^6/uL (3.72-5.28); RED CELL DISTRIBUTION WIDTH 13.8 % (11.5-14.0); SEGMENTED NEUTROPHILS % (AUTO) 73.5 % (42-78); TOTAL CELLS COUNTED % (AUTO) 100 %; WHITE BLOOD COUNT 10.6 10^3/uL (4.0-10.5)
[2017-09-17 04:30] LABS: APPEARANCE,URINE CLEAR; BILIRUBIN,URINE MODERATE (NEGATIVE); COLOR,URINE DARK YELLOW; GLUCOSE, URINE NEGATIVE (NEGATIVE); KETONES,URINE 25 mg/dL (NEGATIVE); URINE SPECIFIC GRAVITY 1.028
[2017-09-17 04:31] LABS: LEUKOCYTE ESTERASE,URINE NEGATIVE (NEGATIVE); NITRITE,URINE NEGATIVE (NEGATIVE); PROTEIN,URINE >=500 mg/dL (NEGATIVE)
[2017-09-17 04:42] LABS: URINE AMPHETAMINES SCREEN NEGATIVE; URINE BARBITURATES SCREEN NEGATIVE; URINE BENZODIAZEPINES SCREEN NEGATIVE; URINE COCAINE SCREEN NEGATIVE; URINE METHADONE SCREEN NEGATIVE; URINE PHENCYCLIDINE SCREEN NEGATIVE
[2017-09-17 04:44] LABS: URINE MARIJUANA (THC) SCREEN UNCONFIRMED POSITIVE
[2017-09-17 05:42] LABS: RUBELLA INTERPRETATION POSITIVE
[2017-09-18 13:37] LABS: HEPATITIS C VIRUS AB <0.1 s/co ratio (0.0-0.9)
[2017-09-18 17:42] LABS: HEPATITS B SURFACE ANTIGEN Negative (Negative)
== END 2017-09-17 05:16 | disposition home or self-care (01) ==
LOC: LC 00:01
PROVIDERS: ATTEND Obstetrics & Gynecology
PROC: 4A1HXCZ Monitoring of Products of Conception, Cardiac Rate, External Approach (ICD-10-PCS; principal; 2017-09-17)
DX: O47.03 False labor before 37 completed weeks of gestation, third trimester (principal); Z3A.29 29 weeks gestation of pregnancy; Z79.899 Other long term (current) drug therapy
CPT/HCPCS: 36415; 80307; 81001; 85025; 86592; 86701; 86762; 86803; 86804; 86850; 86900; 86901; 87340

== ENCOUNTER 2017-10-23 18:27 | Outpatient (CLI) | payer MEDICAID ==
[2017-10-23 19:51] LABS: APPEARANCE,URINE CLOUDY; BILIRUBIN,URINE SMALL (NEGATIVE); COLOR,URINE AMBER; GLUCOSE, URINE NEGATIVE (NEGATIVE); KETONES,URINE 20 mg/dL (NEGATIVE); LEUKOCYTE ESTERASE,URINE MODERATE (NEGATIVE); NITRITE,URINE NEGATIVE (NEGATIVE); PROTEIN,URINE 100 mg/dL (NEGATIVE); URINE SPECIFIC GRAVITY 1.033
[2017-10-23 19:59] LABS: URINE AMPHETAMINES SCREEN NEGATIVE; URINE BARBITURATES SCREEN NEGATIVE; URINE BENZODIAZEPINES SCREEN NEGATIVE; URINE METHADONE SCREEN NEGATIVE; URINE PHENCYCLIDINE SCREEN NEGATIVE
[2017-10-23 20:10] LABS: URINE COCAINE SCREEN NEGATIVE
[2017-10-23 20:13] LABS: URINE MARIJUANA (THC) SCREEN UNCONFIRMED POSITIVE
--- NOTE | 2017-10-23 21:28 | Non Stress Test Report ---
Non Stress Test Datetime Report Generated by CPN: 10/23/2017 21:27 DEMOGRAPHIC EGA NST: 34.2 INDICATION Indication for Study: Ordered by Provider MONITORING Monitor Explained: Monitor Explained; Test Explained; Patient Verbalized Understanding Time on Monitor: 10/23/2017 20:28 Time off Monitor: 10/23/2017 21:04 NST Duration: 36 NST INTERVENTIONS NST Interventions: PO Hydration Physician Notified NST: Dr. Sudarshan BABY A: [id number] BABY A Movement : Present Contraction Frequency : irritibility FHR Baseline : 130 Accelerations : 15X15 Decelerations : None Variability : Moderate 6-25bpm NST Review: Meets Criteria for Reactive NST NST Review and Verified By : Madai Ocampo RN NST Results: Reactive NST REPORT Report Trigger: Send Report
[2017-10-23 23:03] LABS: CHLAM PCR NOT DETECTED (NOT DETECT); GON PCR NOT DETECTED (NOT DETECT)
== END 2017-10-23 22:09 | disposition home or self-care (01) ==
LOC: LC 18:27
PROVIDERS: ATTEND Obstetrics & Gynecology
PROC: 4A1HXCZ Monitoring of Products of Conception, Cardiac Rate, External Approach (ICD-10-PCS; principal; 2017-10-23)
DX: O47.03 False labor before 37 completed weeks of gestation, third trimester (principal); Z3A.34 34 weeks gestation of pregnancy
CPT/HCPCS: 59025; 80307; 81001; 87491; 87591

== ENCOUNTER → 2017-11-10 | Outpatient (CLI) | payer MEDICAID ==
--- NOTE | 2017-11-10 15:31 | RADIOLOGY REPORT (SQ) ---
EXAM DESCRIPTION: U/S OB 14+ TRNABD 1GES W/O DOP COMPLETED DATE/TIME: 11/10/2017 3:12 pm REASON FOR STUDY: Z34.83 ENCOUNTER FOR SUPRVSN OF NORMAL , THIRD TRIMESTER Z34.83 ENCOUNTE R FOR SUPRVSN OF NORMAL , THIRD TRIM COMPARISON: 08/30/2017. TECHNIQUE: Static and Dynamic grayscale imaging performed of gravid uterus using transabdominal appr oach. Additional selected color Doppler and spectral images recorded. All stored on PACS. LIMITATIONS: Limited visualization of portions of the anatomy due to advanced gestational age and patient cooperation. FINDINGS: EGA: 37 week 1 day. MARCEL: 11/30/2017. FANI: Adequate amount. PLACENTA: Anterior. PRESENTATION: Cephalic. ANATOMY: HEART RATE: 145 beats per minute. FOUR CHAMBER HEART: Visualized. THREE VESSEL CORD: Yes. CORD INSERTION: Visualized. KIDNEYS AND BLADDER: Visualized. Appear normal. STOMACH: Visualized. Appears normal. SPINE: Normal as visualized. BRAIN AND LATERAL VENTRICLES: Not adequately visualized. OTHER: No other significant finding. Lower extremities not adequately visualize. MATERNAL ADNEXA: Maternal ovaries not visualized. OTHER: No other significant finding. IMPRESSION: LIVING INTRAUTERINE . ESTIMATED GESTATIONAL AGE 37 WEEKS 1 DAY. NO VISUALIZED ANOMALIES. Trimester of : Third trimester - 28 weeks to delivery. TECHNICAL DOCUMENTATION: JOB ID: [id number] [employer]- All Rights Reserved Reading location - IP/workstation name: [email or web address]
== END ==
LOC: RAD 14:59
PROVIDERS: ATTEND Nurse Practitioner Women's Health
DX: Z34.83 Encounter for supervision of other normal pregnancy, third trimester (principal)
CPT/HCPCS: 76805

== ENCOUNTER 2017-11-28 08:09 | Inpatient (IN) | payer MEDICAID ==
[2017-11-28 09:22] LABS: APPEARANCE,URINE SLIGHTLY-CLOUDY; BILIRUBIN,URINE NEGATIVE (NEGATIVE); COLOR,URINE YELLOW; GLUCOSE, URINE NEGATIVE (NEGATIVE); KETONES,URINE 20 mg/dL (NEGATIVE); LEUKOCYTE ESTERASE,URINE SMALL (NEGATIVE); NITRITE,URINE NEGATIVE (NEGATIVE); PROTEIN,URINE NEGATIVE (NEGATIVE); URINE SPECIFIC GRAVITY 1.017
[2017-11-28 09:44] LABS: URINE BARBITURATES SCREEN NEGATIVE; URINE BENZODIAZEPINES SCREEN NEGATIVE; URINE METHADONE SCREEN NEGATIVE; URINE PHENCYCLIDINE SCREEN NEGATIVE
[2017-11-28 09:46] LABS: URINE AMPHETAMINES SCREEN NEGATIVE
[2017-11-28 09:48] LABS: URINE COCAINE SCREEN NEGATIVE
[2017-11-28 09:55] LABS: URINE MARIJUANA (THC) SCREEN UNCONFIRMED POSITIVE
[2017-11-28] MEDS ORDERED: OXYTOCIN/NORMAL SALINE 20 UNIT/1,000 ML RTUINJ ONE (10:15)
[2017-11-28] MEDS ORDERED: MISOPROSTOL 0.2 MG TABLET ONE (10:15)
[2017-11-28] MEDS ORDERED: PENICILLIN G-K 5 MILLION UNIT VIAL ONE (10:15)
[2017-11-28] MEDS ORDERED: LIDOCAINE 1% INJ-PF (10 MG/ML) 30 ML SDV ONE (10:15)
[2017-11-28] MEDS ORDERED: PENICILLIN G POTASSIUM 5,000,000 UNIT in DEXTROSE 5%-WATER 100 ML IV ONE (10:17)
--- NOTE | 2017-11-28 10:43 | RADIOLOGY REPORT (SQ) ---
EXAM DESCRIPTION: U/S OB LIMITED COMPLETED DATE/TIME: 11/28/2017 10:19 am REASON FOR STUDY: efw, placental location, fani, presentation COMPARISON: OB ultrasound 08/30/2017, 11/10/2017 TECHNIQUE: Limited transabdominal grayscale ultrasound for evaluation of specific requested obstetri mere parameters. LIMITATIONS: None. FINDINGS: CERVICAL LENGTH: Not visualized FANI: 12.9 cm. FHR: 135 beats per minute. PRESENTATION: Cephalic. OTHER: Estimated weight 3047 g (23rd percentile). Posterior placenta, grade 3 IMPRESSION: LIMITED OBSTETRICAL ULTRASOUND WITH MEASURED PARAMETERS DELINEATED ABOVE. Trimester of : Third trimester - 28 weeks to delivery. TECHNICAL DOCUMENTATION: JOB ID: [id number] [employer]- All Rights Reserved Reading location - IP/workstation name: [email or web address]
--- NOTE | 2017-11-28 10:46 | RADIOLOGY REPORT (SQ) ---
EXAM DESCRIPTION: U/S PROFILE W/O STRESS COMPLETED DATE/TIME: 11/28/2017 10:19 am REASON FOR STUDY: nrnst COMPARISON: None. TECHNIQUE: Limited shirley-scale realtime and static images of the fetus to measure specified parameter s. LIMITATIONS: None. FINDINGS: HEART RATE: 127 beats per minute. MOVEMENT: 2 points. After starting the exam, the patient refused further evaluation. breathing movement, pos ture and tone, qualitative FANI were not assessed. OTHER: Fetus cephalic orientation IMPRESSION: BIOPHYSICAL PROFILE: Incomplete. Patient refused exam Trimester of : Third - 28 weeks to delivery COMMENT: BREATHING MOVEMENTS: 2 POINTS: PRESENT 0 POINTS: ABSENT MOTION: 2 POINTS: PRESENT 0 POINTS: ABSENT TONE: 2 POINTS: PRESENT 0 POINTS: ABSENT AMNIOTIC FLUID VOLUME: 2 POINTS: LARGEST POCKET GREATER THAN 2 CM DEPTH. 0 POINTS: NO POCKET OF 2 CM. TECHNICAL DOCUMENTATION: JOB ID: [id number] [employer]- All Rights Reserved Reading location - IP/workstation name: [email or web address]
[2017-11-28 10:49] LABS: ABSOLUTE BASOPHILS # (AUTO) 0.1 10^3/uL (0.0-0.2); ABSOLUTE EOSINOPHILS # (AUTO) 0.1 10^3/uL (0.0-0.6); ABSOLUTE LYMPHOCYTES (AUTO) 2.2 10^3/uL (0.5-4.7); ABSOLUTE MONOCYTES (AUTO) 0.8 10^3/uL (0.1-1.4); ABSOLUTE NEUT (AUTO) 7.2 10^3/uL (1.7-8.2); BASOPHILS % (AUTO) 0.5 % (0-2); EOSINOPHILS % (AUTO) 0.8 % (0-6); HEMATOCRIT 35.1 % (36.0-47.0); HEMOGLOBIN 11.2 g/dL (12.0-15.5); MEAN CORPUSCULAR HEMOGLOBIN 25.5 pg (27.0-33.4); MEAN CORPUSCULAR HGB CONC 31.8 g/dL (32.0-36.0); MEAN CORPUSCULAR VOLUME 80 fl (80-97); MONOCYTES % (AUTO) 7.3 % (3-13); PLATELET COUNT 372 10^3/uL (150-450); RED BLOOD COUNT 4.37 10^6/uL (3.72-5.28); RED CELL DISTRIBUTION WIDTH 15.3 % (11.5-14.0); SEGMENTED NEUTROPHILS % (AUTO) 70.4 % (42-78); TOTAL CELLS COUNTED % (AUTO) 100 %; WHITE BLOOD COUNT 10.3 10^3/uL (4.0-10.5)
[2017-11-28] MEDS ORDERED: OXYTOCIN 10 UNIT/ML VIAL ONE (10:54)
[2017-11-28] MEDS ORDERED: ACETAMINOPHEN WITH CODEINE #3 TABLET ONE (11:03)
[2017-11-28] MEDS ORDERED: IBUPROFEN 800 MG TABLET ONE (11:03)
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
[2017-11-28] MEDS ORDERED: DIBUCAINE 1% OINTMENT 28 GM TP PRN (11:25)
[2017-11-28] MEDS ORDERED: OXYTOCIN/NORMAL SALINE 20 UNIT/1,000 ML RTUINJ IV PRN (11:25)
[2017-11-28] MEDS ORDERED: ZOLPIDEM TARTRATE 5 MG TABLET PO PRN (11:25)
[2017-11-28] MEDS ORDERED: DIPH/PERTUSS(ACELL)/TETANUS VAC/PF 0.5 ML SYR (>=10YO) IM PRN (11:25)
[2017-11-28] MEDS ORDERED: ACETAMINOPHEN WITH CODEINE #3 TABLET PO PRN ×2 (11:25)
[2017-11-28] MEDS ORDERED: MEASLES,MUMPS&RUBELLA VACC/PF 0.5 ML VIAL SUBCUT PRN (11:25)
[2017-11-28] MEDS ORDERED: BENZOCAINE/MENTHOL AEROSOL SPRAY 56 ML TOP PRN (11:25)
[2017-11-28 11:36] LABS: RUBELLA INTERPRETATION POSITIVE
[2017-11-28 12:25] LABS: ALANINE AMINOTRANSFERASE 18 U/L (9-52); ALBUMIN 3.4 g/dL (3.5-5.0); ALKALINE PHOSPHATASE 189 U/L (38-126); ANION GAP 11 (5-19); ASPARTATE AMINO TRANSFERASE 20 U/L (14-36); BILIRUBIN,DIRECT 0.4 mg/dL (0.0-0.4); BILIRUBIN,TOTAL 0.5 mg/dL (0.2-1.3); BLOOD UREA NITROGEN 9 mg/dL (7-20); CALCIUM 9.5 mg/dL (8.4-10.2); CARBON DIOXIDE 20 mmol/L (22-30); CHLORIDE 107 mmol/L (98-107); GLUCOSE 79 mg/dL (75-110); POTASSIUM 4.2 mmol/L (3.6-5.0); TOTAL PROTEIN 6.8 g/dL (6.3-8.2); URIC ACID 4.9 mg/dL (2.5-6.2)
--- NOTE | 2017-11-28 12:39 | Delivery Summary ---
Del Sum A-C Datetime Report Generated by CPN: 11/28/2017 12:39 DELIVERY PERSONNEL DELIVERY PERSONNEL: [id number] Delivery Doctor:: Padmini Lopez CNM Nurse Lead Pastor Certified:: Padmini Lopez CNM Labor and Delivery Nurse:: Allie Heaton RNproject coordinator Nurse:: MARILYN Grimes Nursery Nurse:: Jenny Santiago RN Parish Worker/CIRCUS RIDER: Marta Rodriguez CNA II Additional Personnel: : Marybeth Joe RN MATERNAL INFORMATION Delivery Anesthesia: None Medications After Delivery: Pitocin 10 Units IM Maternal Complications: Precipitous Labor (<3hrs) Provider Comments: pt progressed rapidly to c/c/ +3, pushed, of viable male over intact perineum, head, shoulders and body delivered without difficulty, with spontaneous cry and respirations, to maternal abdomen, cord clamped x2 and infant cut free by pts support person, placetna manually removed, d/t cord integrity, vagina and perineum, inspected, no lacerations noted, hemostasis acheived with external fundal massage and IM pitocin, mother and infant in stable condition. rouitne pp care LABOR SUMMARY EDC: 12/02/2017 00:00 No. Babies in Womb: 1 Attempted: No Labor Anesthesia: None LABOR INFORMATION Reason for Induction: Not Applicable Onset of Labor: 11/28/2017 04:00 Complete Dilatation: 11/28/2017 10:46 Oxytocin: N/A Group B Beta Strep: unknown Antibiotics # of Doses: 1 Antibiotics Time of Last Dose: 1028 Name of Antibiotic Given: Penicillin Steroids Given: None Reason Steroids Not Administered: Not Applicable MEMBRANES Membranes Rupture Method: Spontaneous Rupture of Membranes: 11/28/2017 10:43 Length of Rupture (hr): 0.15 Amniotic Fluid Color: Clear Amniotic Fluid Amount: Small Amniotic Fluid Odor: None STAGES OF LABOR Stage 1 hr: 6 Stage 1 min: 46 Stage 2 hr: 0 Stage 2 min: 6 Stage 3 hr: 0 Stage 3 min: 3 Total Time in Labor hr: 6 Total Time in Labor min: 55 VAGINAL DELIVERY Episiotomy: None Laceration #1: None Laceration Extension #1: N/A Laceration Repair: Not Applicable Sponge Count Correct: N/A Sharps Count Correct: N/A CSECTION DELIVERY Primary Indication: N/A Secondary Indication: N/A CSection Incidence: N/A Labor: N/A Elective: N/A CSection Incision: N/A BABY A INFORMATION Infant Delivery Date/Time: 11/28/2017 10:52 Method of Delivery: Vaginal Born in Route : No : N/A Forceps: N/A Vacuum Extraction: N/A Shoulder Dystocia : No PRESENTATION/POSITION BABY A Presentation: Cephalic Cephalic Presentation: Vertex Vertex Position: OA Breech Presentation: N/A PLACENTA INFORMATION BABY A Placenta Delivery Time : 11/28/2017 10:55 Placenta Method of Delivery: Manual Removal Placenta Status: Delivered SCORES BABY A Heart Rate 1 min: >100 bpm Resp Effort 1 min: Good Cry Reflex Irritability 1 min: Cough or Sneeze or Pulls Away Muscle Tone 1 min: Active Motion Color 1 min: Blue/Pale Resuscitation Effort 1 min: Tactile Stimulation SCORE 1 MIN: 8 Heart Rate 5 min: >100 bpm Resp Effort 5 min: Good Cry Reflex Irritability 5 min: Cough or Sneeze or Pulls Away Muscle Tone 5 min: Active Motion Color 5 min: Body [place], Extremities Blue Resuscitation Effort 5 min: Tactile Stimulation SCORE 5 MIN: 9 INFANT INFORMATION BABY A Gestational Age at Delivery: 39.3 Gestational Status: Full Term- 39- 40.6 Weeks Outcome : Liveborn Infant Condition : Stable Sex: Male IDENTIFICATION BABY A Verification Date/Time: 11/28/2017 11:04 ID Band Number: [id number] Mother's Name Verified: Yes RN Verifying Infant: Sarah Beth Dillongayla, RN and Khushboo Mejia, RN WEIGHT/LENGTH BABY A Infant Birthweight (gm): 3010 Infant Weight (lb): 6 Infant Weight (oz): 10 Length (in): 19.75 Infant Length (cm): 50.17 CORD INFORMATION BABY A No. Cord Vessels: 3 Nuchal Cord : N/A Cord Blood Taken: Yes-For Storage (Mom's Blood type +) ASSESSMENT BABY A Complications: None Physical Findings at Delivery: Molding of the Head Respirations: Appears Normal Skin to Skin: Yes Skin to Skin Time (min): 60 Retail Coverage Merchandiser Lead/ALS Called : No Infant Care By: Carissa Santiago, RN Transferred To: Remains with Mother BABY B INFORMATION : N/A SIGNATURES Assignment: Adele Heaton MD Signature: with User ID: Lisa : with User ID: Lisa
[2017-11-28] MEDS ORDERED: HYDRALAZINE HCL INJ/PF 20 MG/1 ML SDV ONE (12:46)
[2017-11-28] MEDS ORDERED: HYDRALAZINE HCL INJ/PF 20 MG/1 ML SDV IV ONE (13:30)
[2017-11-28] MEDS ORDERED: PENICILLIN G POTASSIUM 2,500,000 UNIT in DEXTROSE 5%-WATER 50 ML IV SCH (14:18)
[2017-11-28] MEDS: IBUPROFEN 800 MG TABLET PO SCH ×2 (14:53→22:54)
[2017-11-28] MEDS: DOCUSATE SODIUM 100 MG CAPSULE PO SCH (17:56)
[2017-11-28] MEDS: FERROUS SULFATE 325 MG TABLET PO SCH (17:56)
[2017-11-28 20:13] LABS: CHLAM PCR NOT DETECTED (NOT DETECT); GON PCR NOT DETECTED (NOT DETECT)
[2017-11-28] MEDS ORDERED: PROCHLORPERAZINE MALEATE 10 MG TABLET PO ONE (22:00)
[2017-11-28] MEDS ORDERED: ACETAMINOPHEN 325 MG TABLET PO ONE (22:00)
[2017-11-28] MEDS: NIFEDIPINE 30 MG TAB.ER.24 PO SCH (23:24)
[2017-11-29] MEDS: IBUPROFEN 800 MG TABLET PO SCH ×3 (05:53→21:12)
[2017-11-29 07:06] LABS: HEPATITS B SURFACE ANTIGEN Negative (Negative)
[2017-11-29 07:22] LABS: HEMATOCRIT 26.2 % (36.0-47.0); MEAN CORPUSCULAR HEMOGLOBIN 25.8 pg (27.0-33.4); MEAN CORPUSCULAR VOLUME 81 fl (80-97); PLATELET COUNT 252 10^3/uL (150-450); RED BLOOD COUNT 3.25 10^6/uL (3.72-5.28); RED CELL DISTRIBUTION WIDTH 15.5 % (11.5-14.0); WHITE BLOOD COUNT 10.2 10^3/uL (4.0-10.5)
[2017-11-29 07:25] LABS: HEMOGLOBIN 8.4 g/dL (12.0-15.5)
[2017-11-29] MEDS: DOCUSATE SODIUM 100 MG CAPSULE PO SCH ×2 (09:19→18:00)
[2017-11-29] MEDS: PRENATAL VITAMIN W DHA CAPSULE PO SCH (09:20)
[2017-11-29] MEDS: FERROUS SULFATE 325 MG TABLET PO SCH ×2 (09:20→18:00)
[2017-11-29] MEDS: SENNOSIDES/DOCUSATE 8.6-50 MG 1 EACH TABLET PO SCH (09:20)
--- NOTE | 2017-11-29 17:49 | PDOC PROGRESS REPORT ---
Subjective-OB Progress Note for:: 11/29/17 Subjective: 22yo G4 now P3 s/p ppd1. Ambulating, voiding without difficulty. No concerns today. Physical Exam (OB) Vital Signs: Temp Pulse Resp BP Pulse Ox 98.1 F 64 20 115/60 100 11/28/17 21:00 11/28/17 22:03 11/28/17 21:00 11/28/17 22:30 11/28/17 21:04 Intake & Output 11/28/17 11/29/17 11/30/17 06:59 06:59 06:59 Intake Total 500 Balance 500 Weight 97 kg - General General Appearance: Appears well In distress: None - PIH/Pre-Eclampsia DTR's: 2 + Clonus: Negative Headache: Present Epigastric Pain: No Visual Changes: No - Episiotomy/Laceration Site Condition: N/A - Lochia Lochia Amount: Scant < 10 ml Lochia Color: Rubra/Red - Abdomen Description: Soft, Round Hernia Present: No Fundal Description: Firm, Midline Fundal Height: u/u - u/2 - Respiratory Respiratory Status: No respiratory distress - Extremities Upper extremity: Normal inspection Lower extremities: Normal inspection Ankle: Normal Foot: Normal - Neurological Cognition: Normal Orientation: AAOx4 - Psychological Associated symptoms: Normal affect, Normal mood Objective-Diagnostic Laboratory: 11/29/17 06:57 11/28/17 10:30 11/28/17 11/28/17 11/28/17 10:30 10:30 10:30 WBC 10.3 RBC 4.37 Hgb 11.2 L Hct 35.1 L MCV 80 MCH 25.5 L MCHC 31.8 L RDW 15.3 H Plt Count 372 Seg Neutrophils % 70.4 Lymphocytes % 21.0 Monocytes % 7.3 Eosinophils % 0.8 Basophils % 0.5 Absolute Neutrophils 7.2 Absolute Lymphocytes 2.2 Absolute Monocytes 0.8 Absolute Eosinophils 0.1 Absolute Basophils 0.1 Sodium 138.0 Potassium 4.2 Chloride 107 Carbon Dioxide 20 L Anion Gap 11 BUN 9 Creatinine 0.62 Est GFR ( Amer) > 60 Est GFR (Non-Af Amer) > 60 Glucose 79 Uric Acid 4.9 Calcium 9.5 Total Bilirubin 0.5 AST 20 ALT 18 Alkaline Phosphatase 189 H Total Protein 6.8 Albumin 3.4 L Blood Type A POSITIVE Antibody Screen NEGATIVE 11/29/17 06:57 WBC 10.2 RBC 3.25 L Hgb 8.4 L D Hct 26.2 L MCV 81 MCH 25.8 L MCHC 32.0 RDW 15.5 H Plt Count 252 Seg Neutrophils % Lymphocytes % Monocytes % Eosinophils % Basophils % Absolute Neutrophils Absolute Lymphocytes Absolute Monocytes Absolute Eosinophils Absolute Basophils Sodium Potassium Chloride Carbon Dioxide Anion Gap BUN Creatinine Est GFR ( Amer) Est GFR (Non-Af Amer) Glucose Uric Acid Calcium Total Bilirubin AST ALT Alkaline Phosphatase Total Protein Albumin Blood Type Antibody Screen Assessment and Plan(PN) - Assessment and Plan (1) Cannabis abuse Is this a current diagnosis for this admission?: Yes Plan: discharge planning consult placed (2) Limited care Qualifiers: Trimester: unspecified trimester Qualified Code(s): O09.30 - Supervision of with insufficient care, unspecified trimester Is this a current diagnosis for this admission?: Yes Plan: discharge planning consult placed (3) Acute blood loss anemia Is this a current diagnosis for this admission?: Yes Plan: Increase dietary iron and FeSO4 BID (4) Vaginal delivery Is this a current diagnosis for this admission?: Yes Plan: Routine pp care - Time Spent with Patient Time with patient: Less than 15 minutes Smoking Education Provided: Over 3 minutes Medications reviewed and adjusted accordingly: Yes - Disposition Anticipated Discharge: Home Within: within 24 hours
[2017-11-29] MEDS: NIFEDIPINE 30 MG TAB.ER.24 PO SCH (21:12)
[2017-11-30] MEDS: IBUPROFEN 800 MG TABLET PO SCH ×2 (05:22→14:23)
--- NOTE | 2017-11-30 09:02 | PDOC DISCHARGE SUMMARY ---
Final Diagnosis Discharge Date: 11/30/17 - Final Diagnosis (1) Cannabis abuse Is this a current diagnosis for this admission?: Yes (2) Limited care Is this a current diagnosis for this admission?: Yes (3) Acute blood loss anemia Is this a current diagnosis for this admission?: Yes (4) Vaginal delivery Is this a current diagnosis for this admission?: Yes Discharge Data - Discharge Medication Prescriptions: Nifedipine [Procardia XL 30 mg Tablet] 30 mg PO QHS #30 tab.er.24 Docusate Sodium [Colace 100 mg Capsule] 100 mg PO BID #60 capsule Ferrous Sulfate [Feosol 325 mg Tablet] 325 mg PO BID #60 tablet Ibuprofen [Motrin 800 mg Tablet] 800 mg PO Q8 #60 tablet Home Medications: Docusate Sodium [Colace 100 mg Capsule] 100 mg PO BID #60 capsule 11/30/17 Ferrous Sulfate [Feosol 325 mg Tablet] 325 mg PO BID #60 tablet 11/30/17 Ibuprofen [Motrin 800 mg Tablet] 800 mg PO Q8 #60 tablet 11/30/17 Nifedipine [Procardia XL 30 mg Tablet] 30 mg PO QHS #30 tab.er.24 11/30/17 Gestational Age: 39 Reason(s) for Admission: Onset of Labor Procedures: NST Intrapartum Procedure(s): Spontaneous Vaginal Delivery - Data Baby 1 Male Home with Mother: Yes Complications: No - active cps case - Diagnosis Test Laboratory: Temp Pulse Resp BP Pulse Ox 98.0 F 67 18 129/75 H 99 11/30/17 02:10 11/30/17 02:10 11/30/17 02:10 11/30/17 02:10 11/30/17 02:10 11/28/17 11/28/17 11/29/17 08:55 10:30 06:57 RBC 4.37 3.25 L Hgb 11.2 L 8.4 L D Hct 35.1 L 26.2 L Urine Opiates Screen NEGATIVE - Discharge information/Instructions Discharge Activity: Activity As Tolerated, Pelvic Rest, No tub bath Discharge Diet: Regular Disposition: HOME, SELF-CARE Follow up with: [facility] in: 1 - august
[2017-11-30] MEDS: SENNOSIDES/DOCUSATE 8.6-50 MG 1 EACH TABLET PO SCH (09:05)
[2017-11-30] MEDS: PRENATAL VITAMIN W DHA CAPSULE PO SCH (09:05)
[2017-11-30] MEDS: DOCUSATE SODIUM 100 MG CAPSULE PO SCH ×2 (09:05→17:43)
[2017-11-30] MEDS: FERROUS SULFATE 325 MG TABLET PO SCH ×2 (09:05→17:43)
[2017-11-30 17:07] VITALS: BP 119/62
== END 2017-11-30 18:27 | disposition home or self-care (01) | DRG 775 ==
LOC: LC 08:09 → LR 10:24 → 2S 14:14
PROVIDERS: ADMIT Obstetrics & Gynecology; ATTEND Obstetrics & Gynecology
PROC: 10E0XZZ Delivery of Products of Conception, External Approach (ICD-10-PCS; principal; 2017-11-28)
PROC: 4A1HXCZ Monitoring of Products of Conception, Cardiac Rate, External Approach (ICD-10-PCS; 2017-11-28)
DX: O99.513 Diseases of the respiratory system complicating pregnancy, third trimester (principal); D62 Acute posthemorrhagic anemia; O99.324 Drug use complicating childbirth; O99.02 Anemia complicating childbirth; F17.210 Nicotine dependence, cigarettes, uncomplicated; O99.334 Smoking (tobacco) complicating childbirth; J45.909 Unspecified asthma, uncomplicated; O62.3 Precipitate labor; Z91.018 Allergy to other foods; Z3A.39 39 weeks gestation of pregnancy; Z37.0 Single live birth
CPT/HCPCS: 36415; 76815; 76819; 80053; 80307; 81005; 83615; 84550; 85025; 85027; 86592; 86762; 86850; 86900; 86901; 87077; 87081; 87340; 87491; 87591; 90715; G0480; J0360; J2540; J2590; J3490; Q0114; S0183

== ENCOUNTER 2018-05-31 12:55 | Emergency (ER) | payer SELFPAY ==
[2018-05-31 17:01] LABS: ABSOLUTE EOSINOPHILS # (AUTO) 0.2 10^3/uL (0.0-0.6); ABSOLUTE LYMPHOCYTES (AUTO) 2.3 10^3/uL (0.5-4.7); ABSOLUTE MONOCYTES (AUTO) 0.7 10^3/uL (0.1-1.4); ABSOLUTE NEUT (AUTO) 5.7 10^3/uL (1.7-8.2); BASOPHILS % (AUTO) 0.5 % (0-2); EOSINOPHILS % (AUTO) 2.3 % (0-6); HEMATOCRIT 35.9 % (36.0-47.0); HEMOGLOBIN 11.9 g/dL (12.0-15.5); LYMPHOCYTES % (AUTO) 25.7 % (13-45); MEAN CORPUSCULAR HEMOGLOBIN 27.8 pg (27.0-33.4); MEAN CORPUSCULAR HGB CONC 33.1 g/dL (32.0-36.0); MEAN CORPUSCULAR VOLUME 84 fl (80-97); MONOCYTES % (AUTO) 8.2 % (3-13); PLATELET COUNT 516 10^3/uL (150-450); RED BLOOD COUNT 4.27 10^6/uL (3.72-5.28); SEGMENTED NEUTROPHILS % (AUTO) 63.3 % (42-78); TOTAL CELLS COUNTED % (AUTO) 100 %; WHITE BLOOD COUNT 8.9 10^3/uL (4.0-10.5)
[2018-05-31 17:27] LABS: ALANINE AMINOTRANSFERASE 14 U/L (9-52); ALBUMIN 4.4 g/dL (3.5-5.0); ALKALINE PHOSPHATASE 108 U/L (38-126); ANION GAP 13 (5-19); ASPARTATE AMINO TRANSFERASE 20 U/L (14-36); BILIRUBIN,DIRECT 0.2 mg/dL (0.0-0.4); BILIRUBIN,TOTAL 0.3 mg/dL (0.2-1.3); BLOOD UREA NITROGEN 6 mg/dL (7-20); CALCIUM 9.8 mg/dL (8.4-10.2); CARBON DIOXIDE 25 mmol/L (22-30); CHLORIDE 102 mmol/L (98-107); GLUCOSE 77 mg/dL (75-110); POTASSIUM 4.5 mmol/L (3.6-5.0); TOTAL PROTEIN 7.7 g/dL (6.3-8.2)
--- NOTE | 2018-05-31 18:52 | ER Document Report ---
ED General - General Chief Complaint: Vaginal Bleeding Stated Complaint: VAGINAL BLEEDING Time Seen by Provider: 05/31/18 15:44 Notes: Patient is a 23-year-old female presents to the emergency department with vaginal bleeding. Patient states she took an at-home test and believe she is 9 weeks . Patient states her last menstrual period was the middle of March. Patient states today she all of a sudden noticed bleeding in her underwear. States she has gone through 2 pads total since arriving to the emergency room. Patient denies any dysuria, or malodorous, abnormal vaginal discharge prior to the bleeding. Patient does admit to some mild suprapubic abdominal cramping. Patient denies fever, nausea, vomiting, diarrhea. Past medical history: Anemia Medications: None Allergies: None Patient admits to cigarette smoking, denies illicit drug use, denies EtOH use. TRAVEL OUTSIDE OF THE [place] IN LAST 30 DAYS: No - Related Data Allergies/Adverse Reactions: tomato [Tomato] Adverse Reaction (Verified 11/28/17 08:29) Past Medical History - General Information source: Patient - Social History Smoking Status: Current Every Day Smoker Frequency of alcohol use: None Drug Abuse: None Family History: Reviewed & Not Pertinent Patient has suicidal ideation: No Patient has homicidal ideation: No - Past Medical History Cardiac Medical History: Denies: Hx Congestive Heart Failure, Hx Hypertension Pulmonary Medical History: Reports: Hx Asthma Denies: Hx Bronchitis, Hx COPD, Hx Pneumonia, Hx Tuberculosis Renal/ Medical History: Denies: Hx Peritoneal Dialysis GI Medical History: Reports: Hx Ulcer Skin Medical History: Reports Hx Eczema - Immunizations Immunizations up to date: Yes Hx Diphtheria, Pertussis, Tetanus Vaccination: Yes Review of Systems - Review of Systems Constitutional: No symptoms reported EENT: No symptoms reported Cardiovascular: No symptoms reported Respiratory: No symptoms reported Gastrointestinal: See HPI Genitourinary: See HPI Female Genitourinary: See HPI Musculoskeletal: No symptoms reported Skin: No symptoms reported Hematologic/Lymphatic: See HPI Neurological/Psychological: No symptoms reported Physical Exam - Vital signs Vitals: Temp Pulse Resp BP Pulse Ox 98.5 F 90 18 113/71 100 05/31/18 13:16 05/31/18 13:16 05/31/18 13:16 05/31/18 13:16 05/31/18 13:16 - Notes Notes: GENERAL: Alert, interacts well. No acute distress. HEAD: Normocephalic, atraumatic. EYES: Pupils equal, round, and reactive to light. Extraocular movements intact. ENT: Oral mucosa moist, tongue midline. NECK: Full range of motion. Supple. Trachea midline. LUNGS: Clear to auscultation bilaterally, no wheezes, rales, or rhonchi. No respiratory distress. HEART: Regular rate and rhythm. No murmur ABDOMEN: Soft, non-tender. Non-distended. Bowel sounds present in all 4 quadrants. Mild suprapubic tenderness upon deep palpation EXTREMITIES: Moves all 4 extremities spontaneously. No edema, normal radial and dorsalis pedis pulses bilaterally. No cyanosis. BACK: no cervical, thoracic, lumbar midline tenderness. No saddle anesthesia, normal distal neurovascular exam. No CVA tenderness bilaterally NEUROLOGICAL: Alert and oriented x3. Normal speech. cranial nerves II through XII grossly intact PSYCH: Normal affect, normal mood. SKIN: Warm, dry, normal turgor. No rashes or lesions noted. Course - Re-evaluation Re-evalutation: Patient stated she did not want a transvaginal ultrasound. Transabdominal ultrasound was performed showing a single living intrauterine 9.2 weeks with a heart rate of 168. It also showed a 2.2 x 1.4 x 2.1 cm subchorionic bleed. Patient's hemoglobin 11.9 hematocrit 35.9 beta hCG [id number], no signs of leukocytosis on lab work, no signs of electrolyte abnormalities. Discussed this ultrasound and lab results with patient at bedside. Discussed need for close follow-up with [employer]. Also discussed pelvic rest until she follows up with [employer]. Patient voices understanding. - Vital Signs Vital signs: Temp Pulse Resp BP Pulse Ox 98.5 F 90 18 113/71 100 05/31/18 13:16 05/31/18 13:16 05/31/18 13:16 05/31/18 13:16 05/31/18 13:16 - Laboratory Result Diagrams: 05/31/18 16:26 05/31/18 16:26 Laboratory results interpreted by me: 05/31/18 05/31/18 05/31/18 16:26 16:26 18:30 Hgb 11.9 L Hct 35.9 L RDW 18.0 H Plt Count 516 H BUN 6 L Creatinine 0.48 L Beta HCG, Quant 372456.00 H Urine Protein 100 H Urine Blood LARGE H Ur Leukocyte Esterase SMALL H Discharge - Discharge Clinical Impression: Intrauterine Subchorionic bleed Qualifiers: Fetus number: single or unspecified fetus Trimester: first trimester Qualified Code(s): O41.8X10 - Other specified disorders of amniotic fluid and membranes, first trimester, not applicable or unspecified Condition: Stable Disposition: HOME, SELF-CARE Instructions: Vaginal Bleeding ([facility]) Additional Instructions: As we discussed you have been seen and treated in the emergency department for your vaginal bleeding. Your ultrasound shows that you have a single living intrauterine at 9.2 weeks. This means you have a baby inside of your uterus where it should be. You also have what is called a subchorionic bleed. This is bleeding between the baby and your vaginal canal. These typically resolve themselves but you need to follow-up with [employer] as soon as possible. Also as we discussed you should refrain from putting anything inside your vaginal canal until you follow-up with [employer] and they clear you. This means no sexual intercourse, tampon use, sexual toys. Absolutely nothing should go inside of your vagina. Referrals: PRADIP BANG MD [ACTIVE STAFF] - Follow up as needed
[2018-05-31 19:02] LABS: APPEARANCE,URINE SLIGHTLY-CLOUDY; BILIRUBIN,URINE NEGATIVE (NEGATIVE); COLOR,URINE YELLOW; GLUCOSE, URINE NEGATIVE (NEGATIVE); KETONES,URINE NEGATIVE (NEGATIVE); LEUKOCYTE ESTERASE,URINE SMALL (NEGATIVE); NITRITE,URINE NEGATIVE (NEGATIVE); PROTEIN,URINE 100 mg/dL (NEGATIVE); URINE SPECIFIC GRAVITY 1.023; UROBILINOGEN,URINE NEGATIVE mg/dL (<2.0)
--- NOTE | 2018-05-31 19:11 | RADIOLOGY REPORT (SQ) ---
EXAM DESCRIPTION: U/S [id number] TRNABD 1GES W/ODOP COMPLETED DATE/TIME: 05/31/2018 6:38 pm REASON FOR STUDY: prego bleeding COMPARISON: None. TECHNIQUE: Transabdominal static and realtime grayscale images acquired of the pelvis. Additional se lected spectral and color Doppler images recorded. All images stored on PACs. bHCG: Not available CLINICAL DATES: 8 weeks 5 days LIMITATIONS: None. FINDINGS: FETUS: Single Living intrauterine . ULTRASOUND EGA: 9 weeks 2 days ULTRASOUND MARCEL: 01/01/2019 EFW: Not applicable less than 20 weeks. CRL: 2.5 cm FHR: 168 beats per minute. SURVEY: No visualized anomalies. AMNIOTIC FLUID: Adequate amount. PLACENTA: Not yet developed due to early gestation. SUBCHORIONIC BLEED: Yes SIZE OF BLEED: 2.2 x 1.4 x 2.1 cm UTERUS: No masses. No anomalies. CERVICAL LENGTH: Not identified RIGHT ADNEXA: Right ovary was not visualized. No adnexal free fluid. No adnexal masses. LEFT ADNEXA: Left ovary was not visualized. No adnexal free fluid. No adnexal masses. FREE FLUID: None. OTHER: No other significant finding. IMPRESSION: LIVING INTRAUTERINE . EGA 9 weeks 2 days Trimester of : First - 0 to 13 weeks. TECHNICAL DOCUMENTATION: JOB ID: [id number] [employer]- All Rights Reserved rev-11/03 Reading location - IP/workstation name: [email or web address]
[2018-05-31 20:47] VITALS: BP 130/84
== END 2018-05-31 20:46 | disposition home or self-care (01) ==
LOC: ER 12:55
DX: O20.8 Other hemorrhage in early pregnancy (principal); O99.331 Smoking (tobacco) complicating pregnancy, first trimester; F17.210 Nicotine dependence, cigarettes, uncomplicated; O99.511 Diseases of the respiratory system complicating pregnancy, first trimester; J45.909 Unspecified asthma, uncomplicated; Z3A.09 9 weeks gestation of pregnancy
CPT/HCPCS: 36415; 76801; 80053; 81001; 84702; 85025; 86900; 86901; 99284

== ENCOUNTER 2018-06-07 07:45 | Emergency (ER) | payer MEDICAID ==
[2018-06-07 08:40] LABS: APPEARANCE,URINE SLIGHTLY-CLOUDY; BILIRUBIN,URINE NEGATIVE (NEGATIVE); COLOR,URINE YELLOW; GLUCOSE, URINE NEGATIVE (NEGATIVE); KETONES,URINE NEGATIVE (NEGATIVE); LEUKOCYTE ESTERASE,URINE TRACE (NEGATIVE); NITRITE,URINE NEGATIVE (NEGATIVE); PROTEIN,URINE NEGATIVE (NEGATIVE); URINE SPECIFIC GRAVITY 1.023
--- NOTE | 2018-06-07 09:16 | ER Document Report ---
ED General - General Chief Complaint: Vaginal Bleeding Stated Complaint: VAGINAL BLEEDING Time Seen by Provider: 06/07/18 08:00 Notes: Patient is a 23-year-old female that is approximately 10 weeks gravid, that presents to the emergency department for chief complaint of vaginal bleeding. Patient states this initially started this past Monday and was seen in the ED at that time, she states she had a gush of blood at that time, was noted to have a subchorionic hemorrhage and advised follow-up, patient was noted to be A+ at that time. She states that on Monday she started having some bleeding again, and spotting off and on over the course of this week and then this morning she had some more bleeding that she stated was similar to her typical menstrual periods so she decided come back to the ED. She denies having cramping or pain associated with this. Denies vaginal discharge, dysuria or hematuria. She also denies having any fevers, chills, night sweats, chest pain or shortness of breath. She also denies having lightheadedness or dizziness. First day of last menstrual period she states was in the middle of March. Past Medical History: Denies chronic medical conditions Past Surgical History: Denies surgical history Social History: Admits to smoking cigarettes daily, denies alcohol or drug use. Family History: Reviewed and noncontributory for presenting illness Allergies: Reviewed, see documented allergy list. REVIEW OF SYSTEMS: Other than noted above, the 12 point review of systems was reviewed with the patient and were negative, all pertinent findings are included in the HPI. PHYSICAL EXAMINATION: Vital signs reviewed, nursing noted reviewed. GENERAL: Well-appearing, well-nourished and in no acute distress. HEAD: Atraumatic, normocephalic. EYES: Eyes appear normal, extraocular movements intact, sclera anicteric, conjunctiva are normal. ENT: nares patent, oropharynx clear without exudates. Moist mucous membranes. NECK: Normal range of motion, supple without lymphadenopathy LUNGS: Breath sounds clear to auscultation bilaterally and equal. No wheezes rales or rhonchi. HEART: Regular rate and rhythm without murmurs ABDOMEN: Soft, nontender, normoactive bowel sounds. No rebound, guarding, or rigidity. No masses appreciated. EXTREMITIES: Nontender, good range of motion, no pitting or edema. NEUROLOGICAL: No focal neurological deficits. Moves all extremities spontaneously Motor and sensory grossly intact on exam. PSYCH: Normal mood, normal affect. SKIN: Warm, Dry, normal turgor, no rashes or lesions noted on exposed skin TRAVEL OUTSIDE OF THE [place] IN LAST 30 DAYS: No - Related Data Allergies/Adverse Reactions: tomato [Tomato] Adverse Reaction (Verified 11/28/17 08:29) Past Medical History - Social History Smoking Status: Current Some Day Smoker Frequency of alcohol use: None Drug Abuse: None Family History: Reviewed & Not Pertinent Patient has suicidal ideation: No Patient has homicidal ideation: No - Past Medical History Cardiac Medical History: Denies: Hx Congestive Heart Failure, Hx Hypertension Pulmonary Medical History: Reports: Hx Asthma Denies: Hx Bronchitis, Hx COPD, Hx Pneumonia, Hx Tuberculosis Renal/ Medical History: Denies: Hx Peritoneal Dialysis GI Medical History: Reports: Hx Ulcer Skin Medical History: Reports Hx Eczema - Immunizations Immunizations up to date: Yes Hx Diphtheria, Pertussis, Tetanus Vaccination: Yes Physical Exam - Vital signs Vitals: Temp Pulse Resp BP Pulse Ox 98.5 F 89 16 140/77 H 98 06/07/18 07:49 06/07/18 07:49 06/07/18 07:49 06/07/18 07:49 06/07/18 07:49 Course - Re-evaluation Re-evalutation: Patient seen and examined vital signs reviewed. Laboratory data and imaging were ordered as appropriate for the patient's presenting symptoms and complaint, with consideration of any critical or life threatening conditions that may be associated with their obtained history and exam as noted above. Results were reviewed when available and demonstrated increase in size subchorionic hemorrhage on ultrasound, live single intrauterine , normal heart rate, cervical loss closed. The patient was re-evaluated and was stable, no significant vaginal bleeding while in the ED, I discussed this case with Dr. augustine the [employer] youth development professional, she stated that the patient could expect to have off-and-on bleeding over the next few weeks, which educated the patient on, no further management needed at this time otherwise, patient was a positive on previous visit, no indication for RhoGam. Patient was advised pelvic rest. Evaluation was most consistent with subchorionic hemorrhage. Results were discussed with the patient at this point, after careful consideration I feel that that patient can be discharged from the emergency department, the patient was educated treatments and reasons to return to the emergency department based on their presumed diagnosis as noted above, they were advised to followup with a primary care physician in 2-3 days. Patient was agreeable to plan of care. *Note is created using voice recognition software and may contain spelling, syntax or grammatical errors. Laboratory 06/07/18 06/07/18 08:18 08:24 Beta HCG, Quant 697670.00 H Total Beta HCG POSITIVE Urine Color YELLOW Urine Appearance SLIGHTLY-CLOUDY Urine pH 7.0 Ur Specific [place] 1.023 Urine Protein NEGATIVE Urine Glucose (UA) NEGATIVE Urine Ketones NEGATIVE Urine Blood MODERATE H Urine Nitrite NEGATIVE Urine Bilirubin NEGATIVE Urine Urobilinogen 2.0 H Ur Leukocyte Esterase TRACE H Urine WBC (Auto) 4 Urine RBC (Auto) 1 Urine Bacteria (Auto) TRACE Squamous Epi Cells Auto 2 Urine Mucus (Auto) MANY Urine Ascorbic Acid NEGATIVE Obstetrics Ultrasound 06/07/18 08:23 IMPRESSION: LIVING INTRAUTERINE . EGA 10 WEEK 6 DAY. LARGE SUBCHORIONIC BLEED. MEASUREMENTS HAVE INCREASED SINCE THE PRIOR STUDY. Trimester of : First - 0 to 13 weeks. - Vital Signs Vital signs: Temp Pulse Resp BP Pulse Ox 98.9 F 80 18 136/72 H 100 06/07/18 10:51 06/07/18 10:51 06/07/18 10:51 06/07/18 10:51 06/07/18 10:51 - Laboratory Laboratory results interpreted by me: 06/07/18 06/07/18 08:18 08:24 Beta HCG, Quant [id number] H Urine Blood MODERATE H Urine Urobilinogen 2.0 H Ur Leukocyte Esterase TRACE H Discharge - Discharge Clinical Impression: Vaginal bleeding in patient at less than 20 weeks gestation Subchorionic bleed Qualifiers: Fetus number: single or unspecified fetus Trimester: first trimester Qualified Code(s): O41.8X10 - Other specified disorders of amniotic fluid and membranes, first trimester, not applicable or unspecified Condition: Stable Disposition: HOME, SELF-CARE Instructions: Bleeding During Early ([facility]) Additional Instructions: Please follow-up with [employer], you could expect to have some vaginal bleeding over the next several weeks, if it becomes severe, you are soaking through several pads in a few hours, please return to the emergency department to be reevaluated. If you develop lightheadedness or dizziness or passing out, he should also return to the ED for the symptoms. Referrals: [facility] [Provider Group] - Follow up as needed
--- NOTE | 2018-06-07 09:40 | RADIOLOGY REPORT (SQ) ---
EXAM DESCRIPTION: U/S [id number] TRNABD 1GES W/ODOP COMPLETED DATE/TIME: 06/07/2018 9:28 am REASON FOR STUDY: vaginal bleeding COMPARISON: 05/31/2018. TECHNIQUE: Transabdominal static and realtime grayscale images acquired of the pelvis. Additional se lected spectral and color Doppler images recorded. All images stored on PACs. bHCG: Not applicable. CLINICAL DATES: 10 week 2 day. LIMITATIONS: None. FINDINGS: FETUS: Single Living intrauterine . ULTRASOUND EGA: 10 week 6 day. ULTRASOUND MARCEL: 12/28/2018. EFW: Not applicable less than 20 weeks. CRL: 3.99 cm. FHR: 152 beats per minute. SURVEY: No visualized anomalies. AMNIOTIC FLUID: Adequate amount. PLACENTA: Not yet developed due to early gestation. SUBCHORIONIC BLEED: Yes. SIZE OF BLEED: 2.8 x 3.8 x 5.1 cm. On transverse images the subchorionic bleed covers approximately 50% of the circumference of the gestational sac. UTERUS: No masses. No anomalies. CERVICAL LENGTH: 3.8 cm. Closed. RIGHT ADNEXA: Ovary not identified due to poor acoustical window. No adnexal free fluid. No adnexal masses. LEFT ADNEXA: Ovary not identified due to poor acoustical window. No adnexal free fluid. No adnexal masses. FREE FLUID: None. OTHER: No other significant finding. IMPRESSION: LIVING INTRAUTERINE . EGA 10 WEEK 6 DAY. LARGE SUBCHORIONIC BLEED. MEASUREMENTS HAVE INCREASED SINCE THE PRIOR STUDY. Trimester of : First - 0 to 13 weeks. TECHNICAL DOCUMENTATION: JOB ID: [id number] [employer]- All Rights Reserved rev-11/03 Reading location - IP/workstation name: [email or web address]
[2018-06-07 10:52] VITALS: BP 136/72
== END 2018-06-07 10:52 | disposition home or self-care (01) ==
LOC: ER 07:45
DX: O20.9 Hemorrhage in early pregnancy, unspecified (principal); O41.8X10 Other specified disorders of amniotic fluid and membranes, first trimester, not applicable or unspecified; O99.331 Smoking (tobacco) complicating pregnancy, first trimester; Z3A.10 10 weeks gestation of pregnancy
CPT/HCPCS: 36415; 76801; 81001; 84702; 99284

== ENCOUNTER 2018-06-14 12:31 | Emergency (ER) | payer MEDICAID ==
--- NOTE | 2018-06-14 13:15 | ER Document Report ---
ED Medical Screen (RME) - General Chief Complaint: Vag Bleeding, +preg <12wks Stated Complaint: VAGINAL BLEEDING Time Seen by Provider: 06/14/18 13:06 Notes: Patient is here because she is having continued bleeding and passing clots and she is . G5, P3, and a 1. She had an ultrasound done here on May 28 showing her to be 10 weeks and 6 days gestation with a living IUP with a normal heartbeat. She says she continues to pass clots and blood. Her blood type is Rh+. TRAVEL OUTSIDE OF THE [place] IN LAST 30 DAYS: No - Related Data Allergies/Adverse Reactions: tomato [Tomato] Adverse Reaction (Verified 06/14/18 12:31) Past Medical History - Social History Chew tobacco use (# tins/day): No Frequency of alcohol use: None Drug Abuse: None - Past Medical History Cardiac Medical History: Denies: Hx Congestive Heart Failure, Hx Hypertension Pulmonary Medical History: Reports: Hx Asthma Denies: Hx Bronchitis, Hx COPD, Hx Pneumonia, Hx Tuberculosis Renal/ Medical History: Denies: Hx Peritoneal Dialysis GI Medical History: Reports: Hx Ulcer Skin Medical History: Reports Hx Eczema - Immunizations Immunizations up to date: Yes Hx Diphtheria, Pertussis, Tetanus Vaccination: Yes Physical Exam - Vital signs Vitals: Temp Pulse Resp BP Pulse Ox 98.7 F 94 18 153/80 H 99 06/14/18 12:44 06/14/18 12:44 06/14/18 12:44 06/14/18 12:44 06/14/18 12:44 Course - Vital Signs Vital signs: Temp Pulse Resp BP Pulse Ox 98.7 F 94 18 153/80 H 99 06/14/18 12:44 06/14/18 12:44 06/14/18 12:44 06/14/18 12:44 06/14/18 12:44
[2018-06-14 13:40] LABS: ABSOLUTE EOSINOPHILS # (AUTO) 0.3 10^3/uL (0.0-0.6); ABSOLUTE LYMPHOCYTES (AUTO) 2.1 10^3/uL (0.5-4.7); ABSOLUTE MONOCYTES (AUTO) 0.9 10^3/uL (0.1-1.4); BASOPHILS % (AUTO) 0.4 % (0-2); HEMATOCRIT 32.2 % (36.0-47.0); HEMOGLOBIN 10.7 g/dL (12.0-15.5); LYMPHOCYTES % (AUTO) 20.5 % (13-45); MEAN CORPUSCULAR HEMOGLOBIN 28.4 pg (27.0-33.4); MEAN CORPUSCULAR HGB CONC 33.3 g/dL (32.0-36.0); MEAN CORPUSCULAR VOLUME 85 fl (80-97); MONOCYTES % (AUTO) 8.5 % (3-13); PLATELET COUNT 473 10^3/uL (150-450); RED BLOOD COUNT 3.78 10^6/uL (3.72-5.28); RED CELL DISTRIBUTION WIDTH 17.6 % (11.5-14.0); SEGMENTED NEUTROPHILS % (AUTO) 67.6 % (42-78); TOTAL CELLS COUNTED % (AUTO) 100 %; WHITE BLOOD COUNT 10.4 10^3/uL (4.0-10.5)
--- NOTE | 2018-06-14 14:25 | RADIOLOGY REPORT (SQ) ---
EXAM DESCRIPTION: U/S OB TRANSVAGINAL W/O DOP COMPLETED DATE/TIME: 06/14/2018 2:09 pm REASON FOR STUDY: Approximately 13 weeks with vaginal bleed COMPARISON: 06/07/2018 TECHNIQUE: Transabdominal static and realtime grayscale images acquired of the pelvis. Additional se lected spectral and color Doppler images recorded. All images stored on PACs. CLINICAL AGE: 13 weeks BHCG: Not available. LIMITATIONS: None. FINDINGS: UTERUS: No visualized intrauterine . RIGHT ADNEXA: Normal ovary with normal vascular flow. No adnexal free fluid. No adnexal masses. LEFT ADNEXA: Ovary not identified. No adnexal free fluid. No adnexal masses. FREE FLUID: None. OTHER: No other significant finding. IMPRESSION: demise at 13 weeks. TECHNICAL DOCUMENTATION: JOB ID: [id number] [employer]- All Rights Reserved Reading location - IP/workstation name: [email or web address]
[2018-06-14] MEDS ORDERED: MISOPROSTOL 0.2 MG TABLET PO STA (18:43)
--- NOTE | 2018-06-14 18:49 | ER Document Report ---
ED GI/ - General Chief Complaint: Vag Bleeding, +preg <12wks Stated Complaint: VAGINAL BLEEDING Time Seen by Provider: 06/14/18 13:06 Mode of Arrival: Ambulatory Information source: Patient, [facility] Records Notes: Patient is a 23-year-old female who returns emergency room complaining of having severe vaginal bleeding starting last night late with severe cramping. Patient states that she was just laying around and all of a sudden she had a urge a large amount of blood came out she passed some clots she passed large amount of blood and had some cramping. Patient further states that she has been seen here 2 previous times for vaginal bleed during this . She gave a live births back in December of this past year as well. On 05/31/2018 patient was found to have a normal IUP at 9 weeks 2 days by ultrasound however she had a subchorionic bleed. She was discharged home and told to return if any problems. On the she returned again with bleeding repeat ultrasound showed a doubled in size subchorionic bleed again patient sent home and told to return. In the meantime she has been to from what she tells me the [facility] and they are also following her. So last night was that the combination of the bleeding where it bled for several hours fairly heavy patient states she looked at the clots and did not see any type of pedal resemblance and flush the toilet. Today she is complaining of some very mild cramping. TRAVEL OUTSIDE OF THE [place] IN LAST 30 DAYS: No - HPI Patient complains to provider of: , Vaginal bleeding Timing/Duration: Gradual, Persistent, Worse Quality of pain: Cramping, Sharp, Throbbing Severity at maximum: Severe Severity in ED: Moderate Pain Level: 3 Location: Suprapubic, Vaginal Vaginal bleeding (Compared to normal period): Heavier, Bright red, Passing clots Menstrual period history: LMP: Patient on sure : 5 - Unable to ascertain patient's true status on her pregnancies. ABO type: O Rh factor: Pos OB ultrasound done: Yes vitamins taken: No Sexual history: Active Associated symptoms: Nausea Exacerbated by: Denies Relieved by: Denies Similar symptoms previously: Yes Recently seen / treated by doctor: Yes - Related Data Allergies/Adverse Reactions: tomato [Tomato] Adverse Reaction (Verified 06/14/18 12:31) Past Medical History - General Information source: Patient - Social History Smoking Status: Current Every Day Smoker Cigarette use (# per day): Yes - Here today Chew tobacco use (# tins/day): No Smoking Education Provided: Yes Frequency of alcohol use: None Drug Abuse: None Lives with: Family Family History: Reviewed & Not Pertinent Patient has suicidal ideation: No Patient has homicidal ideation: No - Past Medical History Cardiac Medical History: Denies: Hx Congestive Heart Failure, Hx Hypertension Pulmonary Medical History: Reports: Hx Asthma Denies: Hx Bronchitis, Hx COPD, Hx Pneumonia, Hx Tuberculosis Renal/ Medical History: Denies: Hx Peritoneal Dialysis GI Medical History: Reports: Hx Ulcer Skin Medical History: Reports Hx Eczema - Immunizations Immunizations up to date: Yes Hx Diphtheria, Pertussis, Tetanus Vaccination: Yes Review of Systems - Review of Systems Constitutional: No symptoms reported EENT: No symptoms reported Cardiovascular: No symptoms reported Respiratory: No symptoms reported Gastrointestinal: No symptoms reported Genitourinary: No symptoms reported Female Genitourinary: See HPI, , Vaginal bleeding Musculoskeletal: No symptoms reported Skin: No symptoms reported Hematologic/Lymphatic: No symptoms reported Neurological/Psychological: See HPI, Anxiety -: Yes All other systems reviewed and negative Physical Exam - Vital signs Vitals: Temp Pulse Resp BP Pulse Ox 98.7 F 94 18 153/80 H 99 06/14/18 12:44 06/14/18 12:44 06/14/18 12:44 06/14/18 12:44 06/14/18 12:44 Interpretation: Hypertensive - Notes Notes: PHYSICAL EXAMINATION: GENERAL: Patient is a well-nourished well-developed obese female who is in no apparent distress on physical examination today. She does not appear uncomfortable at this time either. HEAD: Atraumatic, normocephalic. EYES: Pupils equal round and reactive to light, extraocular movements intact, conjunctiva are normal. ENT: Nares patent, oropharynx clear without exudates. Moist mucous membranes. NECK: Normal range of motion, supple without lymphadenopathy LUNGS: Breath sounds clear to auscultation bilaterally and equal. No wheezes rales or rhonchi. HEART: Regular rate and rhythm without murmurs ABDOMEN: Examination patient's abdomen does not show a appearance at this time. This could be secondary to her large tongue and abdominal area. Female : Pelvic exam shows normal external genitalia in appearance. Speculum exam shows a mild amount of blood as you enter the vaginal canal. And extend back towards the cervix. The cervix appears slightly dilated may be at about half a centimeter. There is some blood extending out of the office itself. There is a moderate amount of blood that needed to be cleared away from around the office and the vaginal vault area. But no products of conception were seen. Bleeding was down to a scant amount by the time pelvic was finished. Bimanual did not show any abnormalities as well either. Musculoskeletal: Normal range of motion, no pitting or edema. No cyanosis. NEUROLOGICAL: Normal speech, normal gait. Normal sensory, motor exams PSYCH: Mentally challenged SKIN: Warm, Dry, normal turgor, no rashes or lesions noted. Course - Re-evaluation Re-evalutation: 06/15/18 01:28 Patient's experienced in the ER today has been very extended. Primarily the reason for this is been patient's inability to understand what of miscarriages. We have spent literally 2 half to 3 hours of discussing with patient our findin gs of the ultrasound that showed she had demise at 13 weeks. There were no products of conception seen within the uterus with the ultrasound and nothing was seen in the vaginal area either. When I first went into approach patient with the findings of the ultrasound informed her that she had miscarried patient stated that can be because when I lay my side I can still feel the baby moving. I tried to explain to her that this would suggest some cramping that was still going on from expulsion of the fetus. But she did not want to hear it. She then began accusing us of line to her that she was here back on the and we told her something different. The nurse that was with me today attended her that day and she confirmed that patient was informed that she had a still viable with a heart beat of 152 but she still had a subchorionic bleed that had doubled in size from the previous one done on 1212. Explained to her that this still was not good but there was still a possibility of a baby going to full-term. Last evening patient gone to bed and woke up she was drenched in blood. She had a full flow of blood to where she felt like she had hemorrhage. But it started to subside before she thought about coming to ER. She tells us that she had a large amount of clots that her and her spouse looked through the clots like a medical person looking for the fetus they never found one. Therefore it had to be still lodged in her uterus. I finally at that point was able to talk patient into allow me to do the pelvic exam she felt like I was being honest with her at that time which I was I walked her through every step I was making and she seemed to be understanding what I was trying to do. Once I finished the exam I informed her I had no products of conception found there there was none on the ultrasound so she must have evacuated the entire at one time she again began calling his wires. I informed her that I was going to call [facility] and I found out that front worker tonight for that group was our on-call TERRAZZO LAYER Dr. augustine I was able to finally get a hold of her explained to her the situation she did not know the patient right off the top of her head. I explained to her that there were no products of conception seen with the ultrasound and I did not find any on my pelvic exam is or anything else she would like me to do. I explained the patient was still trickling blood slightly so she suggested we give her some Cytotec which she requested 800 mcg p.o. This was 4 tablets. I explained to patient that this would help stop her bleeding and allow her uterus to start healing. She originally agreed to take these pills but then again refused to take them. She left the ER stating that we were not telling her the whole truth and she was going to go to another facility and have it checked out that she still has her baby. I informed her this was her prerogative and she may do so on her own for your cord however we are open to her returning if she should have any concerns or problems she continued to bleed. - Vital Signs Vital signs: Temp Pulse Resp BP Pulse Ox 98.4 F 106 H 14 150/91 H 100 06/14/18 19:04 06/14/18 19:04 06/14/18 19:04 06/14/18 19:04 06/14/18 19:04 - Laboratory Result Diagrams: 06/14/18 13:20 Laboratory results interpreted by me: 06/14/18 06/14/18 13:20 13:20 Hgb 10.7 L Hct 32.2 L RDW 17.6 H Plt Count 473 H Beta HCG, Quant 73586.00 H Critical Care Note - Critical Care Note Total time excluding time spent on procedures (mins): 75 Comments: As indicated in the note and in the course of action. I spent an enormous amount of time sitting with patient discussing each of her visits here why things were done the way they were done we kept circling around and back and forth to the present to where she had lost the baby that she denies that she lost. Patient at one time became somewhat racist saying that it is because we are weight we are telling her she lost her baby. She did not get irate on this visit as was documented on the last one. But she was very close. I explained the patient I believe the problem was that she got too early after giving in December. And that her body was not ready to handle another this upset her even more. But I do believe I spent every bit of 75 minutes if not more with myself my nurse discussing all of the visits. And all in the end patient did not believe anything was said. I just know the patient was safe to discharge home and she is has an open door to return here if she needs to. Discharge - Discharge Clinical Impression: Spontaneous Condition: Stable Disposition: HOME, SELF-CARE Instructions: Miscarriage ([facility]) Additional Instructions: Miscarriage You have had a miscarriage (medically called a "spontaneous "). The miscarriage occurred because the fetus did not develop normally. There is nothing you did to cause it, and nothing you could have done to prevent it. About one in four ends in miscarriage. You should rest in bed for two or three days. As there is some risk of infection of the uterus, you should not have intercourse for one week (or until okayed by your physician). You might not have a period for six to eight weeks. You should not become again for at least three months -- the uterus requires time to get back to normal. Call the doctor or return for re-examination if there is heavy or persistent vaginal bleeding, fever, foul discharge, continued cramping pains, or abdominal pain. I have been in contact with Dr. Kaylah Augustine who is with [facility] which [facility] group to see. I have explained to her the circumstances surrounding her visit here today and the results of your ultrasound which showed that she had a spontaneous . This is loss of the fetus which you were caring for the 13 weeks. You have evacuated or all of the products of the conception have been evacuated from your body and it body is on the start to healing itself. That being said you are still bleeding slightly so we are giving you for pills to help stop the bleeding and let your body rest some more. With these pills you may experience some pelvic cramping this is normal. These cramps may be slightly more intense than your normal menstrual cycle cramps or they could be less depends on you and how you react to the pills. If you do not have any other problems and the bleeding subsides just contact your gynecology office in the morning and set up a follow-up appointment. Should you have any concerns or problems after discharge please do not hesitate to return to ER for reconsult and reevaluation. Forms: Elevated Blood Pressure Referrals: [facility] [Provider Group] - Follow up as needed
[2018-06-14 19:05] VITALS: BP 150/91
== END 2018-06-14 19:37 | disposition home or self-care (01) ==
LOC: ER 12:31
DX: O03.9 Complete or unspecified spontaneous abortion without complication (principal); R10.2 Pelvic and perineal pain; J45.909 Unspecified asthma, uncomplicated; F17.210 Nicotine dependence, cigarettes, uncomplicated
CPT/HCPCS: 36415; 76817; 84702; 85025; 99285

== ENCOUNTER 2018-06-17 17:00 | Emergency (ER) | payer MEDICAID ==
--- NOTE | 2018-06-17 17:39 | ER Document Report ---
ED General - General Chief Complaint: Vag Bleeding, +preg <12wks Stated Complaint: VAGINAL BLEEDING Time Seen by Provider: 06/17/18 17:22 Notes: 23-year-old female patient presents for the fourth time for vaginal bleeding. Patient was diagnosed with miscarriage recently. Had extensive workup performed while in the emergency department. Was offered Cytotec but ultimately refused and left without taking it. Now complains of vaginal bleeding. Intermittent cramping. Patient states that she "wants a D&C". Patient denies any fever, chills, sweats. Has intermittent bleeding. States that she thinks that she has seen passage of tissue over the last week. TRAVEL OUTSIDE OF THE [place] IN LAST 30 DAYS: No - Related Data Allergies/Adverse Reactions: tomato [Tomato] Adverse Reaction (Verified 06/14/18 12:31) Past Medical History - General Information source: Patient - Social History Smoking Status: Current Every Day Smoker Chew tobacco use (# tins/day): No Frequency of alcohol use: None Drug Abuse: None Lives with: Family Family History: Reviewed & Not Pertinent Patient has suicidal ideation: No Patient has homicidal ideation: No - Past Medical History Cardiac Medical History: Denies: Hx Congestive Heart Failure, Hx Hypertension Pulmonary Medical History: Reports: Hx Asthma Denies: Hx Bronchitis, Hx COPD, Hx Pneumonia, Hx Tuberculosis Renal/ Medical History: Denies: Hx Peritoneal Dialysis GI Medical History: Reports: Hx Ulcer Skin Medical History: Reports Hx Eczema - Immunizations Immunizations up to date: Yes Hx Diphtheria, Pertussis, Tetanus Vaccination: Yes Review of Systems - Review of Systems Notes: Constitutional: denies: Chills, Diaphoresis, Fever, Malaise, Weakness EENT: denies: Eye discharge, Blurred vision, Tearing, Double vision, Nose congestion, Nose discharge, Throat swelling, Mouth pain Cardiovascular: denies: Palpitations, Heart racing, Orthopnea, Dyspnea, Chest pain Respiratory: denies: Cough, Hurts to breathe, Wheezing, Shortness of breath Gastrointestinal: denies: Abdominal pain, Diarrhea, Nausea, Vomiting, Black stools, bright red blood in stool Genitourinary: denies: Burning, Dysuria, Discharge, Frequency, Flank pain, Hematuria. Complaining of increased vaginal bleeding Musculoskeletal: denies: Joint pain, Joint swelling, Muscle pain, Muscle stiffness, back pain Hematologic/Lymphatic: denies: Anemia, Easy bleeding, Easy bruising, Blood clots Neurological/Psychological: denies: Confusion, Dementia, Depression, Loss of consciousness Skin: No lesions, no masses, no skin breakdown, no abscesses Physical Exam - Vital signs Vitals: Temp Pulse Resp BP Pulse Ox 98.9 F 92 18 126/63 H 100 06/17/18 17:05 06/17/18 17:05 06/17/18 17:05 06/17/18 17:05 06/17/18 17:05 Interpretation: Normal - General General appearance: Appears well, Alert - HEENT Head: Normocephalic, Atraumatic Eyes: Normal Pupils: PERRL - Respiratory Respiratory status: No respiratory distress Chest status: Nontender Breath sounds: Normal Chest palpation: Normal - Cardiovascular Rhythm: Regular Heart sounds: Normal auscultation Murmur: No - Abdominal Inspection: Normal Distension: No distension Bowel sounds: Normal Tenderness: Nontender Organomegaly: No organomegaly - Back Back: Normal, Nontender - Extremities General upper extremity: Normal inspection, Nontender, Normal color, Normal ROM, Normal temperature General lower extremity: Normal inspection, Nontender, Normal color, Normal ROM, Normal temperature, Normal weight bearing. No: Jazmin's sign - Neurological Neuro grossly intact: Yes Cognition: Normal Orientation: AAOx4 Kirill Coma Scale Eye Opening: Spontaneous Kirill Coma Scale Verbal: Oriented [place] Coma Scale Motor: Obeys Commands [place] Coma Scale Total: 15 Speech: Normal Motor strength normal: LUE, RUE, LLE, RLE Sensory: Normal - Psychological Associated symptoms: Normal affect, Normal mood - Skin Skin Temperature: Warm Skin Moisture: Dry Skin Color: Normal Course - Re-evaluation Re-evalutation: 06/17/18 18:14 Patient definitely had some misunderstanding with regards to what a miscarriage was. We spent an extensive admit amount of time explaining to her that the previous ultrasound showed an empty uterus. I am going to go ahead and give her 400 mcg of Cytotec based on the previous LINING PRESSER's recommendations as well as on the recommendations today of Dr. Hinds. We actually discussed the pros and cons of the medication with the patient. We are going to repeat her quantitative hCG but at this time patient has been reassured that she does not need an immediate D&C and that she should follow-up with Dr. Hinds as an outpatient. After medication is given we will discharge her in stable condition. 06/17/18 20:26 Laboratory 06/17/18 18:21 Beta HCG, Quant 22351.00 H Total Beta HCG POSITIVE - Vital Signs Vital signs: Temp Pulse Resp BP Pulse Ox 98.2 F 94 18 107/75 100 06/17/18 18:09 06/17/18 18:09 06/17/18 18:09 06/17/18 18:09 06/17/18 18:09 - Laboratory Laboratory results interpreted by me: 06/17/18 18:21 Beta HCG, Quant 69456.00 H Discharge - Discharge Clinical Impression: Complete miscarriage Condition: Good Disposition: HOME, SELF-CARE Instructions: Miscarriage ([facility]) Referrals: EUGENE HINDS MD [ACTIVE STAFF] - Follow up in 3-5 days
[2018-06-17 18:09] VITALS: BP 107/75
[2018-06-17] MEDS ORDERED: MISOPROSTOL 0.2 MG TABLET PO ONE (18:10)
[2018-06-17] MEDS ORDERED: HYDROCODONE/ACETAMINOPHEN 5-325 MG TABLET PO ONE (18:15)
== END 2018-06-17 18:24 | disposition home or self-care (01) ==
LOC: ER 17:00
DX: O03.9 Complete or unspecified spontaneous abortion without complication (principal)
CPT/HCPCS: 36415; 84702; 99284

== ENCOUNTER 2018-09-16 19:09 | Emergency (ER) | payer MEDICAID ==
--- NOTE | 2018-09-16 19:46 | ER Document Report ---
ED Medical Screen (RME) - General Chief Complaint: Vaginal Pain Stated Complaint: VAGINAL DISCOMFORT Time Seen by Provider: 09/16/18 19:45 Mode of Arrival: Ambulatory Information source: Patient TRAVEL OUTSIDE OF THE [place] IN LAST 30 DAYS: No - HPI Patient complains to provider of: vaginal pain Onset: Yesterday - pt. with vaginal swelling and d/c - Related Data Allergies/Adverse Reactions: tomato [Tomato] Adverse Reaction (Verified 06/14/18 12:31) Past Medical History - Past Medical History Cardiac Medical History: Denies: Hx Congestive Heart Failure, Hx Hypertension Pulmonary Medical History: Reports: Hx Asthma Denies: Hx Bronchitis, Hx COPD, Hx Pneumonia, Hx Tuberculosis Renal/ Medical History: Denies: Hx Peritoneal Dialysis GI Medical History: Reports: Hx Ulcer Skin Medical History: Reports Hx Eczema - Immunizations Immunizations up to date: Yes Hx Diphtheria, Pertussis, Tetanus Vaccination: Yes Physical Exam - Vital signs Vitals: Temp Pulse Resp BP Pulse Ox 98.3 F 66 16 118/57 L 100 09/16/18 19:23 09/16/18 19:23 09/16/18 19:23 09/16/18 19:23 09/16/18 19:23 Course - Vital Signs Vital signs: Temp Pulse Resp BP Pulse Ox 98.3 F 66 16 118/57 L 100 09/16/18 19:23 09/16/18 19:23 09/16/18 19:23 09/16/18 19:23 09/16/18 19:23
[2018-09-16 20:23] LABS: APPEARANCE,URINE CLOUDY; BILIRUBIN,URINE NEGATIVE (NEGATIVE); COLOR,URINE YELLOW; GLUCOSE, URINE NEGATIVE (NEGATIVE); KETONES,URINE NEGATIVE (NEGATIVE); LEUKOCYTE ESTERASE,URINE LARGE (NEGATIVE); NITRITE,URINE NEGATIVE (NEGATIVE); PROTEIN,URINE 30 mg/dL (NEGATIVE); URINE SPECIFIC GRAVITY 1.028
[2018-09-16 21:15] LABS: BACTERIA (WET MOUNT) 3+ BACTERIA SEEN; EPITHELIALS (WET MOUNT) 3+ EPITHELIALS SEEN; RBCS (WET MOUNT) FEW RBCS SEEN; T.VAGINALIS (WET MOUNT) NO TRICHOMONAS SEEN; WBCS (WET MOUNT) FEW WBCS SEEN; YEAST (WET MOUNT) NO YEAST SEEN
[2018-09-16 21:20] VITALS: BP 133/80
--- NOTE | 2018-09-16 21:33 | ER Document Report ---
ED General - General Chief Complaint: Vaginal Pain Stated Complaint: VAGINAL DISCOMFORT Time Seen by Provider: 09/16/18 19:45 Mode of Arrival: Ambulatory Notes: Patient is a 23-year-old female who presents emergency department with a chief complaint of a swollen vagina. She states that she started having symptoms yesterday. She has not tried to do anything to help with her symptoms, nor has she seen her primary care provider in regards to this issue. States it is mainly on the outside. She also states that it is pruritic. She complains of dysuria. She states that it feels like she has a yeast infection, which she has had before. States that she is monogamous, but is unsure if her partner is or not. She denies any discharge. Denies any fever, abdominal pain, nausea, vomiting, or diarrhea. TRAVEL OUTSIDE OF THE [place] IN LAST 30 DAYS: No - Related Data Allergies/Adverse Reactions: tomato [Tomato] Adverse Reaction (Verified 06/14/18 12:31) Past Medical History - General Information source: Patient Last Menstrual Period: unknown - Social History Smoking Status: Current Every Day Smoker Family History: Reviewed & Not Pertinent Patient has suicidal ideation: No Patient has homicidal ideation: No - Past Medical History Cardiac Medical History: Denies: Hx Congestive Heart Failure, Hx Hypertension Pulmonary Medical History: Reports: Hx Asthma Denies: Hx Bronchitis, Hx COPD, Hx Pneumonia, Hx Tuberculosis Renal/ Medical History: Denies: Hx Peritoneal Dialysis GI Medical History: Reports: Hx Ulcer Skin Medical History: Reports Hx Eczema - Immunizations Immunizations up to date: Yes Hx Diphtheria, Pertussis, Tetanus Vaccination: Yes Review of Systems - Review of Systems Notes: REVIEW OF SYSTEMS: CONSTITUTIONAL : Denies recent illness. Denies recent unintentional weight loss. Denies fever, chills, or sweats. EENT: Denies eye, ear, throat, or mouth pain, discharge, or symptoms. Denies nasal or sinus congestion. CARDIOVASCULAR: Denies chest pain. RESPIRATORY: Denies shortness of breath, cough, congestion, difficulty breathing, or wheezing. GASTROINTESTINAL: Denies nausea, vomiting, and diarrhea. Denies abdominal pain. Denies constipation. GENITOURINARY: Denies difficulty urinating, burning, blood in urine, urgency or frequency. MUSCULOSKELETAL: Denies neck and back pain. Denies joint pain or swelling. SKIN: Denies rash, itchiness, or lesions HEMATOLOGIC : Denies easy bruising or bleeding. LYMPHATIC: Denies swollen, painful, enlarged glands. NEUROLOGICAL: Denies no numbness or tingling denies weakness. Denies headache. Denies altered mental status. Denies alteration in speech. PSYCHIATRIC: Denies stress, anxiety, alteration in sleep patterns, or depression. MANAGER INTERMEDIATE: See HPI. All other systems reviewed and negative. Physical Exam - Vital signs Vitals: Temp Pulse Resp BP Pulse Ox 98.3 F 66 16 118/57 L 100 09/16/18 19:23 09/16/18 19:23 09/16/18 19:23 09/16/18 19:23 09/16/18 19:23 - Notes Notes: PHYSICAL EXAMINATION: GENERAL: Appears well, healthy, well-nourished, no acute distress. HEAD: Normocephalic, atraumatic. EYES: PERRL, conjunctiva normal, all extraocular movements intact, sclera nonicteric ENT: Moist mucous membranes. NECK: Supple, no noticeable swelling, redness, rash. Normal range of motion. LUNGS: Equal breath sounds bilaterally and clear to auscultation. No wheezes rales or rhonchi. CARDIOVASCULAR: S1-S2, regular rate, regular rhythm. Radial pulses 2+, normal. ABDOMEN: Normoactive bowel sounds. Soft, nontender, no guarding, no rebound tenderness, and no masses palpated. EXTREMITIES: Normal strength and range of motion, no pitting or edema. No cyanosis. NEUROLOGICAL: Moves all extremities upon command. Strength 5/5 in all extremities. PSYCH: Normal mood, normal affect. SKIN: Warm, dry. No rash, lesions, ulcerations noted. Normal skin turgor. MANAGER INTERMEDIATE: White discharge noted to vagina. Course - Re-evaluation Re-evalutation: 09/16/18 21:33 Pelvic exam with a CT at bedside was done. There was some discharge noted on her pelvic exam. No cervical motion tenderness noted. Ultrasound is not indicated at this time, due to the patient not having any abdominal pain. Wet mount and gonorrhea and chlamydia were sent. Patient does have a large amount of leukocytes in her urine. I will give her doxycycline to treat her for a urinary tract infection and to cover any pelvic infection. She also be started on Flagyl due to her having 3+ bacteria and 4+ epithelial cells on her wet mount. There is no yeast noted. She has chosen to be empirically treated for gonorrhea and chlamydia with Rocephin and azithromycin. Very low suspicion for a tubo-ovarian abscess, pelvic inflammatory disease, appendicitis, diverticulitis, or diverticulosis. Verbal discharge instructions were given to the patient. They verbalized understanding. They are stable for discharge. 09/17/18 01:43 Patient's gonorrhea and chlamydia are negative. Inform the patient that she will not receive a call if her labs are negative. - Vital Signs Vital signs: Temp Pulse Resp BP Pulse Ox 98.1 F 77 16 133/80 H 100 09/16/18 21:19 09/16/18 21:19 09/16/18 19:23 09/16/18 21:19 09/16/18 21:19 - Laboratory Laboratory results interpreted by me: 09/16/18 19:45 Urine Protein 30 H Urine Blood SMALL H Urine Urobilinogen 4.0 H Ur Leukocyte Esterase LARGE H Discharge - Discharge Clinical Impression: Vaginal itching, Bacterial vaginosis Condition: Stable Disposition: HOME, SELF-CARE Additional Instructions: You were seen today in the emergency department for swelling of your vagina. You are being treated for bacterial vaginosis and a urinary tract infection. Take both your antibiotics as prescribed. You have also been treated here in the emergency department for gonorrhea and chlamydia. You will be called if your results are positive. If the results are positive, please have your partner treated. Do not have sex for the next week. If you develop abdominal pain, or have any symptoms that are worrisome to you, please return to the emergency department. Prescriptions: Doxycycline Hyclate 100 mg PO BID #14 capsule Metronidazole [Flagyl 500 mg Tablet] 500 mg PO Q6H #28 tablet
[2018-09-16] MEDS ORDERED: AZITHROMYCIN 1 GM SUSP PACKET PO ONE (21:37)
[2018-09-16] MEDS ORDERED: CEFTRIAXONE INJ 250 MG VIAL IM ONE (21:37)
[2018-09-16] MEDS ORDERED: LIDOCAINE 1% INJ-PF (10 MG/ML) 30 ML SDV INJ ONE (21:37)
[2018-09-16] MEDS ORDERED: METRONIDAZOLE 500 MG TABLET PO ONE (21:37)
[2018-09-16] MEDS ORDERED: DOXYCYCLINE HYCLATE 100 MG TABLET PO SCH (22:00)
[2018-09-17 00:41] LABS: CHLAM PCR NOT DETECTED (NOT DETECT); GON PCR NOT DETECTED (NOT DETECT)
== END 2018-09-16 22:15 | disposition home or self-care (01) ==
LOC: ER 19:09
DX: N76.0 Acute vaginitis (principal); B96.89 Other specified bacterial agents as the cause of diseases classified elsewhere; N39.0 Urinary tract infection, site not specified; F17.200 Nicotine dependence, unspecified, uncomplicated; J45.909 Unspecified asthma, uncomplicated
CPT/HCPCS: 99283; 96372; 87210; 81025; 81001; 87491; 87591; J3490 ×3; Q0144; J0696

== ENCOUNTER 2018-09-20 12:32 | Emergency (ER) | payer MEDICAID ==
[2018-09-20 13:11] VITALS: BP 145/83
[2018-09-20] MEDS ORDERED: ONDANSETRON 4 MG TAB.RAPDIS PO ONE (13:55)
[2018-09-20] MEDS ORDERED: ACETAMINOPHEN 325 MG TABLET PO ONE (13:55)
--- NOTE | 2018-09-20 13:58 | ER Document Report ---
HPI - HPI Time Seen by Provider: 09/20/18 13:48 Pain Level: 0 Notes: Patient is a 23-year-old female who is currently taking doxycycline and Flagyl who presents with complaints of vomiting. She states she has been taking her medication without taking any food prior to. She states she has vomited one time today and twice yesterday. She also reports diarrhea 1 time per day in the morning. She denies any abdominal pain at this time. - REPRODUCTIVE Reproductive: DENIES: : Past Medical History - General Information source: Patient - Social History Smoking Status: Current Every Day Smoker Frequency of alcohol use: None Drug Abuse: None Family History: Reviewed & Not Pertinent - Past Medical History Cardiac Medical History: Denies: Hx Congestive Heart Failure, Hx Hypertension Pulmonary Medical History: Reports: Hx Asthma Denies: Hx Bronchitis, Hx COPD, Hx Pneumonia, Hx Tuberculosis Renal/ Medical History: Denies: Hx Peritoneal Dialysis GI Medical History: Reports: Hx Ulcer Skin Medical History: Reports Hx Eczema Surgical Hx: Negative - Immunizations Immunizations up to date: Yes Hx Diphtheria, Pertussis, Tetanus Vaccination: Yes Vertical Provider Document - CONSTITUTIONAL Notes: PHYSICAL EXAMINATION: GENERAL: Well-appearing, well-nourished and in no acute distress. HEAD: Atraumatic, normocephalic. EYES: Pupils equal round extraocular movements intact, conjunctiva are normal. ENT: Nares patent NECK: Normal range of motion LUNGS: No respiratory distress Musculoskeletal: Normal range of motion NEUROLOGICAL: Normal speech, normal gait. PSYCH: Normal mood, normal affect. SKIN: Warm, Dry, normal turgor, no rashes or lesions noted. - INFECTION CONTROL TRAVEL OUTSIDE OF THE [place] IN LAST 30 DAYS: No Course - Re-evaluation Re-evalutation: Patient symptoms are likely secondary to GI upset from the antibiotic use. Patient will be given Zofran and instructed to eat a full meal prior to taking antibiotics. Patient verbalizes understanding and agreement with plan. - Vital Signs Vital signs: Temp Pulse Resp BP Pulse Ox 98.3 F 67 16 145/83 H 100 09/20/18 13:10 09/20/18 13:10 09/20/18 13:10 09/20/18 13:10 09/20/18 13:10 Discharge - Discharge Clinical Impression: Medication side effect Vomiting Qualifiers: Vomiting type: unspecified Vomiting Intractability: unspecified Nausea presence: unspecified Qualified Code(s): R11.10 - Vomiting, unspecified Condition: Stable Disposition: HOME, SELF-CARE Additional Instructions: The symptoms you are experiencing are most likely due to the fact that you are taking doxycycline and Flagyl without taking any food prior to taking the medications. Please use the Zofran as needed for nausea and please make sure to eat at least 30 minutes prior to taking her antibiotics. Please be sure to continue all antibiotics and finish them even if your symptoms resolve. Prescriptions: Ondansetron [Zofran Odt 4 mg Tablet] 1 - 2 tab PO Q4H PRN #15 tab.rapdis PRN Reason: For Nausea/Vomiting
== END 2018-09-20 14:07 | disposition home or self-care (01) ==
LOC: ER 12:32
DX: T36.4X5A Adverse effect of tetracyclines, initial encounter (principal); R11.10 Vomiting, unspecified; R19.7 Diarrhea, unspecified; Y92.9 Unspecified place or not applicable; F17.200 Nicotine dependence, unspecified, uncomplicated; J45.909 Unspecified asthma, uncomplicated
CPT/HCPCS: 99283; J3490; S0119

== ENCOUNTER 2018-10-06 00:50 | Emergency (ER) | payer MEDICAID ==
[2018-10-06] MEDS ORDERED: ACETAMINOPHEN 325 MG TABLET PO ONE (01:43)
--- NOTE | 2018-10-06 02:48 | ER Document Report ---
ED General - General Chief Complaint: Headache Stated Complaint: MEDICATION REFILL Time Seen by Provider: 10/06/18 02:09 Primary Care Provider: LUX TEJADA MD [NO LOCAL MD] - Follow up in 3-5 days Notes: Patient is a 23 old female presents with complaint of possible anemia placed on antibiotics for bacterial vaginosis. She says she was diagnosed with this recently. She did not finish out her antibiotics. She says that she has some soreness in the vaginal area but section outside of the vaginal area. She says this could be because she wears pants are too tight however she wants to be checked. She also says that she has had a intermittent headache is been ongoing for several months. She says that she does have stress and anxiety and supposed to be on top medications. She was recent prescribed Latuda and clonidine to help with this but she has not started taking them because she is worried that they might make her symptoms worse. She denies any focal weakness or numbness. No fevers. Headaches are gradual in onset and not sudden in onset. No associated vomiting. TRAVEL OUTSIDE OF THE [place] IN LAST 30 DAYS: No - Related Data Allergies/Adverse Reactions: tomato [Tomato] Adverse Reaction (Verified 09/20/18 12:33) Past Medical History - Social History Smoking Status: Never Smoker Chew tobacco use (# tins/day): No Frequency of alcohol use: None Drug Abuse: None Family History: Reviewed & Not Pertinent Patient has suicidal ideation: No Patient has homicidal ideation: No - Past Medical History Cardiac Medical History: Denies: Hx Congestive Heart Failure, Hx Hypertension Pulmonary Medical History: Reports: Hx Asthma Denies: Hx Bronchitis, Hx COPD, Hx Pneumonia, Hx Tuberculosis Renal/ Medical History: Denies: Hx Peritoneal Dialysis GI Medical History: Reports: Hx Ulcer Skin Medical History: Reports Hx Eczema - Immunizations Immunizations up to date: Yes Hx Diphtheria, Pertussis, Tetanus Vaccination: Yes Review of Systems - Review of Systems Notes: My Normal Review Basic REVIEW OF SYSTEMS: CONSTITUTIONAL : Denies fever, chills, or sweats. Denies recent illness. EENT: Denies eye, ear, throat, or mouth pain or symptoms. Denies nasal or sinus congestion. GASTROINTESTINAL: Denies abdominal pain. Denies nausea, vomiting, or diarrhea. GENITOURINARY: Denies difficulty urinating, painful urination, burning, frequency, or blood in urine. FEMALE GENITOURINARY: Some mild vaginal pain MUSCULOSKELETAL: Denies neck or back pain or joint pain or swelling. SKIN: Denies rash or skin lesions. HEMATOLOGIC : Denies easy bruising or bleeding. NEUROLOGICAL: Denies altered mental status or loss of consciousness. Intermittent headache. Denies weakness or paralysis or loss of use of either side. Denies problems with gait or speech. Denies sensory or motor loss. ALL OTHER SYSTEMS REVIEWED AND NEGATIVE. Physical Exam - Vital signs Vitals: Temp Pulse Resp BP Pulse Ox 97.8 F 105 H 20 150/94 H 99 10/06/18 00:57 10/06/18 00:57 10/06/18 00:57 10/06/18 00:57 10/06/18 00:57 - Notes Notes: General Appearance: Well nourished, alert, cooperative, no acute distress, no obvious discomfort. Vitals: reviewed, See vital signs table. Head: no swelling or tenderness to the head Eyes: PERRL, EOMI, Conjuctiva clear Mouth: No decreasd moisture Lungs: No wheezing, No rales, No rhonci, No accessory muscle use, good air exchange bilaterally. Heart: Normal rate, Regular rythm, No murmur, no rub Abdomen: Normal BS, soft, No rigidity, No abdominal tenderness, No guarding, no rebound, no abdominal masses, no organomegaly Pelvic exam: Pelvic exam performed with female RN, Jud Mccann, at bedside. Patient has normal external genitalia. She is currently on her menstrual. Therefore there was a moderate amount of blood in the vaginal vault. No abnormal appearing discharge. Extremities: strength 5/5 in all extremities, good pulses in all extremities, no swelling or tenderness in the extremities, no edema. Skin: warm, dry, appropriate color, no rash Neuro: speech clear, oriented x 3, normal affect, responds appropriately to questions. Cranial nerves II through XII are intact. Distal sensation intact. Patient was all extremities without difficulty. Good distal sensation. No focal neurologic deficits on exam. Normal coordination of movements. Course - Re-evaluation Re-evalutation: 10/06/18 07:15 I do not feel that the patient is a CT scan at this time as she has a gradual onset headache that is intermittent is been intermittent for several months. This is more likely related to stress. I informed her that she she is to follow-up with a neurologist because the headache is been recurring. At this time I do not think CT scan is appropriate is the risks of radiation outweigh the benefits as she has no focal neurologic deficits and her headache is not consistent with a brain bleed or subarachnoid hemorrhage. Patient's pelvic exam is benign. Her wet prep is normal-appearing. She had no abnormal discharge. Her soreness the vaginal area section on the external aspect of the vaginal area. There is no lesions. No evidence of herpes. I informed her to wear looser clothes and comfortable underwear. And informed that she does not any further antibiotics at this time. Gonorrhea and chlamydia swabs are pending by suspect that these will most likely be negative. We will call her if the swabs are positive. Dictation of this chart was performed using voice recognition software; there fore, there may be some unintended grammatical errors. - Vital Signs Vital signs: Temp Pulse Resp BP Pulse Ox 98 F 70 14 134/78 H 97 10/06/18 04:21 10/06/18 04:21 10/06/18 04:21 10/06/18 04:21 10/06/18 04:21 Discharge - Discharge Clinical Impression: Pelvic pain Headache Qualifiers: Headache type: unspecified Headache chronicity pattern: episodic headache Intractability: not intractable Qualified Code(s): R51 - Headache Condition: Good Disposition: HOME, SELF-CARE Additional Instructions: Your pelvic exam does not show any concerning findings. Your vaginal swabs thus far negative. We will still send him for culture. If they grow anything concerning we will call you immediately. Please wear looser pants comfortable underwear. This may help reduce the pain that you sometimes have an external portion of your vaginal area. Suspect recurrent headaches could be related to stress some of her, being that they have been ongoing for several months and be a good idea to follow-up with a neurologist. I provided the phone number to the neurologist, Dr. Tejada. Please call his office to make a close follow-up appointment. ER if you have worsening headaches, vomiting, fevers, abnormal vaginal discharge, severe vaginal pain, or if you feel that you are worsening in anyway. Forms: Return to Work Referrals: LUX TEJADA MD [NO LOCAL MD] - Follow up in 3-5 days
[2018-10-06 02:56] LABS: T.VAGINALIS (WET MOUNT) NO TRICHOMONAS SEEN; WBCS (WET MOUNT) FEW WBCS SEEN; YEAST (WET MOUNT) NO YEAST SEEN
[2018-10-06 02:57] LABS: RBCS (WET MOUNT) 1+ RBCS SEEN
[2018-10-06 04:25] VITALS: BP 134/78
[2018-10-06 04:31] LABS: CHLAM PCR NOT DETECTED (NOT DETECT); GON PCR NOT DETECTED (NOT DETECT)
== END 2018-10-06 04:21 | disposition home or self-care (01) ==
LOC: ER 00:50
DX: R51 Headache (principal); R10.2 Pelvic and perineal pain; F43.9 Reaction to severe stress, unspecified; F41.9 Anxiety disorder, unspecified; T46.5X6A Underdosing of other antihypertensive drugs, initial encounter; T43.596A Underdosing of other antipsychotics and neuroleptics, initial encounter; Z91.128 Patient's intentional underdosing of medication regimen for other reason; Z91.14 Patient's other noncompliance with medication regimen; J45.909 Unspecified asthma, uncomplicated
CPT/HCPCS: 99284; 87210; 81025; 87491; 87591; J3490

== ENCOUNTER 2018-10-31 23:12 | Emergency (ER) | payer SELFPAY ==
[2018-10-31 23:28] VITALS: BP 122/75
[2018-11-01 01:21] LABS: APPEARANCE,URINE CLOUDY; BILIRUBIN,URINE NEGATIVE (NEGATIVE); COLOR,URINE YELLOW; GLUCOSE, URINE NEGATIVE (NEGATIVE); KETONES,URINE NEGATIVE (NEGATIVE); LEUKOCYTE ESTERASE,URINE LARGE (NEGATIVE); NITRITE,URINE NEGATIVE (NEGATIVE); PROTEIN,URINE NEGATIVE (NEGATIVE); URINE SPECIFIC GRAVITY 1.025; UROBILINOGEN,URINE NEGATIVE mg/dL (<2.0)
--- NOTE | 2018-11-01 01:38 | ER Document Report ---
Addendum entered and electronically signed by PRERNA HERNANDEZ NP 11/02/18 09:26: Discharge - Discharge Clinical Impression: Bacterial vaginosis, Yeast infection Condition: Good Disposition: HOME, SELF-CARE Instructions: Vaginosis, Bacterial ([facility]) Additional Instructions: You are being treated for bacterial vaginosis, an overgrowth of normal bacteria in the vagina. You are being sent home on an antibiotic called metronidazole. Take exactly as directed. Never drink alcohol while taking this antibiotic. Please return if you develop abdominal pain, fever greater than 101F, some vomiting, or any other symptoms that are concerning to you. You also have a yeast infection. I have given you a single dose of antibiotic that will treat it. You do not need to take any further action. Prescriptions: Metronidazole [Flagyl 500 mg Tablet] 500 mg PO BID #14 tablet Metronidazole [Flagyl 500 mg Tablet] 500 mg PO BID #14 tablet Addendum entered and electronically signed by PRERNA HERNANDEZ NP 11/02/18 09:25: Discharge - Discharge Clinical Impression: Bacterial vaginosis, Yeast infection Condition: Good Disposition: HOME, SELF-CARE Instructions: Vaginosis, Bacterial ([facility]) Additional Instructions: You are being treated for bacterial vaginosis, an overgrowth of normal bacteria in the vagina. You are being sent home on an antibiotic called metronidazole. Take exactly as directed. Never drink alcohol while taking this antibiotic. Please return if you develop abdominal pain, fever greater than 101F, some vomiting, or any other symptoms that are concerning to you. You also have a yeast infection. I have given you a single dose of antibiotic that will treat it. You do not need to take any further action. Prescriptions: Metronidazole [Flagyl 500 mg Tablet] 500 mg PO BID #14 tablet Original Note: ED General - General Chief Complaint: Vaginal Pain Stated Complaint: VAGINAL PROBLEM Time Seen by Provider: 11/01/18 01:20 Notes: 23-year-old female presents to the emergency department for chief complaint of dysuria and vaginal inflammation. She states that her vagina is also itching and it is spreading to her perineum and her anus. She says this is been going on for over a month and was seen here on 10/06/2018 for similar issue but had a normal pelvic exam. She denies any fevers or chills, nausea vomiting, shortness of breath or chest pain, abdominal pain. She denies any abnormal vaginal discharge but complains of swelling of her labia minora. She also complains of severe vaginal dryness. TRAVEL OUTSIDE OF THE [place] IN LAST 30 DAYS: No - Related Data Allergies/Adverse Reactions: tomato [Tomato] Adverse Reaction (Verified 09/20/18 12:33) Past Medical History - Social History Smoking Status: Unknown if Ever Smoked Family History: Reviewed & Not Pertinent - Past Medical History Cardiac Medical History: Denies: Hx Congestive Heart Failure, Hx Hypertension Pulmonary Medical History: Reports: Hx Asthma Denies: Hx Bronchitis, Hx COPD, Hx Pneumonia, Hx Tuberculosis Renal/ Medical History: Denies: Hx Peritoneal Dialysis GI Medical History: Reports: Hx Ulcer Skin Medical History: Reports Hx Eczema - Immunizations Immunizations up to date: Yes Hx Diphtheria, Pertussis, Tetanus Vaccination: Yes Review of Systems - Review of Systems Constitutional: See HPI EENT: No symptoms reported Cardiovascular: See HPI Respiratory: See HPI Gastrointestinal: See HPI Genitourinary: See HPI Female Genitourinary: See HPI Musculoskeletal: No symptoms reported Skin: No symptoms reported Hematologic/Lymphatic: No symptoms reported Neurological/Psychological: No symptoms reported Physical Exam - Vital signs Vitals: Temp Pulse Resp BP Pulse Ox 97.8 F 85 16 122/75 100 10/31/18 23:23 10/31/18 23:23 10/31/18 23:23 10/31/18 23:23 10/31/18 23:23 - Notes Notes: PHYSICAL EXAMINATION: Reviewed vital signs and charting by RN GENERAL: Well-appearing, well-nourished and in no acute distress. HEAD: Atraumatic, normocephalic. No scalp deformity, depression, or crepitance. LUNGS: Breath sounds present, equal, and clear to auscultation bilaterally. No wheezes, rales, or rhonchi. HEART: Regular rate and rhythm without murmurs, rubs, or gallops. 2+ peripheral pulses. Normal capillary refill. ABDOMEN: Soft, nontender, nondistended. Normoactive bowel sounds. No guarding, no rebound. No masses appreciated. BACK: Normal contour, no midline tenderness. Rectal exam deferred. PELVIC: Deferred as patient does not complain of abdominal pain but will self swab for a wet mount EXTREMITIES: Normal range of motion, no pitting or edema. No cyanosis. PSYCH: Normal mood, normal affect. No suicidal thoughts/ideations. No homocidal thoughts/ideations. No hallucinations. SKIN: Warm, dry, normal turgor, no rashes or lesions noted. Course - Re-evaluation Re-evalutation: 11/01/18 01:37 Overall well-appearing. Erika, nurse tube sorter in the room with me. Upon inspection patient does have vaginal dryness and swelling of both the labia minora. She states that it is caught from her constantly scratching at it but I cannot see any cuts. It looked like there were a couple of papular-like lesions in the perineal area that may or may not be a condyloma. Plan is to do a self swab because she is not having any abdominal pain. I also ordered a urine GC chlamydia and will ask her to do a dirty urine. 11/01/18 02:21 Wet mount shows bacterial vaginosis with a yeast infection. Urinalysis was a poor sample and unreliable. We will treat her for the vaginosis and a yeast infection. - Vital Signs Vital signs: Temp Pulse Resp BP Pulse Ox 97.8 F 85 16 122/75 100 10/31/18 23:23 10/31/18 23:23 10/31/18 23:23 10/31/18 23:23 10/31/18 23:23 - Laboratory Laboratory results interpreted by me: 11/01/18 00:57 Urine Blood SMALL H Ur Leukocyte Esterase LARGE H Discharge - Discharge Clinical Impression: Bacterial vaginosis, Yeast infection Condition: Good Disposition: HOME, SELF-CARE Instructions: Vaginosis, Bacterial ([facility]) Additional Instructions: You are being treated for bacterial vaginosis, an overgrowth of normal bacteria in the vagina. You are being sent home on an antibiotic called metronidazole. Take exactly as directed. Never drink alcohol while taking this antibiotic. Please return if you develop abdominal pain, fever greater than 101F, some vomiting, or any other symptoms that are concerning to you. You also have a yeast infection. I have given you a single dose of antibiotic that will treat it. You do not need to take any further action.
[2018-11-01 02:09] LABS: T.VAGINALIS (WET MOUNT) NO TRICHOMONAS SEEN; WBCS (WET MOUNT) 2+ WBCS SEEN; YEAST (WET MOUNT) BUDDING YEAST SEEN
[2018-11-01 02:10] LABS: BACTERIA (WET MOUNT) 3+ BACTERIA SEEN; EPITHELIALS (WET MOUNT) 3+ EPITHELIALS SEEN; RBCS (WET MOUNT) NO RBCS SEEN
[2018-11-01] MEDS ORDERED: METRONIDAZOLE 500 MG TABLET PO ONE (02:22)
[2018-11-01] MEDS ORDERED: FLUCONAZOLE 100 MG TABLET PO ONE (02:22)
== END 2018-11-01 02:44 | disposition home or self-care (01) ==
LOC: ER 23:12
DX: N76.0 Acute vaginitis (principal); B96.89 Other specified bacterial agents as the cause of diseases classified elsewhere; B37.49 Other urogenital candidiasis; R30.0 Dysuria; J45.909 Unspecified asthma, uncomplicated
CPT/HCPCS: 81001; 87210; 99283

== ENCOUNTER 2018-11-20 05:28 | Emergency (ER) | payer SELFPAY ==
--- NOTE | 2018-11-20 08:01 | ER Document Report ---
ED ENT - General Chief Complaint: Sore Throat Stated Complaint: SORE THROAT Time Seen by Provider: 11/20/18 07:36 Primary Care Provider: SUNNY SINGLETON DO [ASSOCIATE] - Follow up as needed Notes: 23-year-old female to emergency department chief complaint of sore throat and right swollen tonsil and swollen lymph nodes. Fever. Not feeling well. Denies cough or other issues at this time. Has had strep in the past. TRAVEL OUTSIDE OF THE [place] IN LAST 30 DAYS: No - HPI Patient complains to provider of: Throat problem Onset/Duration: Gradual Severity: Moderate Pain Level: 2 Location of pain: Throat - Related Data Allergies/Adverse Reactions: tomato [Tomato] Adverse Reaction (Verified 09/20/18 12:33) Past Medical History - General Information source: Patient - Social History Smoking Status: Current Every Day Smoker Chew tobacco use (# tins/day): No Frequency of alcohol use: None Drug Abuse: None Lives with: Family Family History: Reviewed & Not Pertinent Patient has suicidal ideation: No Patient has homicidal ideation: No - Past Medical History Cardiac Medical History: Denies: Hx Congestive Heart Failure, Hx Hypertension Pulmonary Medical History: Reports: Hx Asthma Denies: Hx Bronchitis, Hx COPD, Hx Pneumonia, Hx Tuberculosis Renal/ Medical History: Denies: Hx Peritoneal Dialysis GI Medical History: Reports: Hx Ulcer Skin Medical History: Reports Hx Eczema - Immunizations Immunizations up to date: Yes Hx Diphtheria, Pertussis, Tetanus Vaccination: Yes Review of Systems - Review of Systems Constitutional: Fever. denies: Malaise, Weakness EENT: Throat pain, Difficulty swallowing, Throat swelling. denies: Ear pain Cardiovascular: denies: Chest pain, Palpitations, Heart racing Respiratory: denies: Cough, Hurts to breathe, Short of breath, Wheezing Gastrointestinal: denies: Abdominal pain, Diarrhea, Nausea, Vomiting Genitourinary: denies: Burning, Dysuria, Discharge Skin: denies: Dryness, Lesions, Rash Neurological/Psychological: denies: Confusion, Weakness, Numbness Physical Exam - Vital signs Vitals: Temp Pulse Resp BP Pulse Ox 98.7 F 83 14 117/81 98 11/20/18 05:35 11/20/18 05:35 11/20/18 05:35 11/20/18 05:35 11/20/18 05:35 Interpretation: Normal - HEENT Head: Normocephalic Eyes: Normal Pupils: PERRL Tympanic membrane: Normal Pharynx: Erythema, Exudate, Tonsillar hypertrophy, Other - Right tonsil very swollen with exudate.. No: Peritonsillar abscess - Respiratory Respiratory status: No respiratory distress Chest status: Nontender Breath sounds: Normal Chest palpation: Normal - Cardiovascular Rhythm: Regular Heart sounds: Normal auscultation Murmur: No - Extremities General upper extremity: Normal inspection, Nontender, Normal color, Normal ROM, Normal temperature General lower extremity: Normal inspection, Nontender, Normal color, Normal ROM, Normal temperature, Normal weight bearing. No: Jazmin's sign - Neurological Neuro grossly intact: Yes Cognition: Normal Orientation: AAOx4 [place] Coma Scale Eye Opening: Spontaneous [place]ill Coma Scale Verbal: Oriented [place] Coma Scale Motor: Obeys Commands [place] Coma Scale Total: 15 Speech: Normal Motor strength normal: LUE, RUE, LLE, RLE Sensory: Normal - Skin Skin Temperature: Warm Skin Moisture: Dry Skin Color: Normal Course - Re-evaluation Re-evalutation: 11/20/18 08:15 23-year-old female emergency department chief complaint of sore throat. Unilateral swollen tonsil on the right with some exudate. No other symptoms other than some fever and swollen lymphadenopathy. No cough, no wheeze. No other viral-like symptoms. Possibility for mono exists however at this time I do feel like she would benefit from some biotics. Patient is comfortable with this plan. Will discharge at this time in stable condition. Patient advised to return for any worsening symptoms or concerns. - Vital Signs Vital signs: Temp Pulse Resp BP Pulse Ox 98.7 F 74 16 120/55 L 100 11/20/18 08:13 11/20/18 08:13 11/20/18 08:13 11/20/18 08:13 11/20/18 08:13 Discharge - Discharge Clinical Impression: Tonsillitis with exudate Condition: Good Disposition: HOME, SELF-CARE Instructions: Tonsillitis ([facility]) Prescriptions: Cefdinir [Omnicef 300 mg Capsule] 1 cap PO BID 7 Days #14 capsule Forms: Return to Work Referrals: SUNNY SINGLETON DO [ASSOCIATE] - Follow up as needed
[2018-11-20 08:14] VITALS: BP 120/55
[2018-11-20] MEDS ORDERED: CEPHALEXIN 500 MG CAPSULE PO ONE (08:17)
[2018-11-20] MEDS ORDERED: DEXAMETHASONE 4 MG TABLET PO ONE (08:17)
[2018-11-20] MEDS ORDERED: IBUPROFEN 800 MG TABLET PO ONE (08:17)
== END 2018-11-20 08:26 | disposition home or self-care (01) ==
LOC: ER 05:28
DX: J03.90 Acute tonsillitis, unspecified (principal); F17.200 Nicotine dependence, unspecified, uncomplicated
CPT/HCPCS: 87070; 87880; 96361; 96374; 96375; 99284

== ENCOUNTER 2018-12-04 23:03 | Emergency (ER) | payer SELFPAY ==
[2018-12-05 02:44] VITALS: BP 130/68
--- NOTE | 2018-12-05 03:48 | ER Document Report ---
ED Medical Screen (RME) - General Chief Complaint: Vaginal Bleeding Stated Complaint: BLEEDING Time Seen by Provider: 12/05/18 03:31 Notes: Patient is a G5, 23-year-old female who presents the emergency department with a chief complaint of vaginal bleeding. She has been bleeding for the past 2 weeks. She also states that she is unsure whether or not she is . Denies any abdominal pain, but states that she feels like she is having contractions. Exam: Tender lower abdomen I have greeted and performed a rapid initial assessment of this patient. A comprehensive ED assessment and evaluation of the patient, analysis of test results and completion of medical decision making process will be conducted by an additional ED providers. TRAVEL OUTSIDE OF THE [place] IN LAST 30 DAYS: No - Related Data Allergies/Adverse Reactions: tomato [Tomato] Adverse Reaction (Verified 09/20/18 12:33) Past Medical History - Past Medical History Cardiac Medical History: Denies: Hx Congestive Heart Failure, Hx Hypertension Pulmonary Medical History: Reports: Hx Asthma Denies: Hx Bronchitis, Hx COPD, Hx Pneumonia, Hx Tuberculosis Renal/ Medical History: Denies: Hx Peritoneal Dialysis GI Medical History: Reports: Hx Ulcer Skin Medical History: Reports Hx Eczema - Immunizations Immunizations up to date: Yes Hx Diphtheria, Pertussis, Tetanus Vaccination: Yes Physical Exam - Vital signs Vitals: Temp Pulse Resp BP Pulse Ox 98.1 F 84 18 123/62 98 12/04/18 23:29 12/04/18 23:29 12/04/18 23:29 12/04/18 23:29 12/04/18 23:29 Course - Vital Signs Vital signs: Temp Pulse Resp BP Pulse Ox 98.1 F 89 18 130/68 H 100 12/04/18 23:29 12/05/18 02:42 12/04/18 23:29 12/05/18 02:42 12/05/18 02:42
[2018-12-05 04:08] LABS: APPEARANCE,URINE TURBID; BILIRUBIN,URINE NEGATIVE (NEGATIVE); COLOR,URINE YELLOW; GLUCOSE, URINE NEGATIVE (NEGATIVE); KETONES,URINE 20 mg/dL (NEGATIVE); LEUKOCYTE ESTERASE,URINE MODERATE (NEGATIVE); NITRITE,URINE NEGATIVE (NEGATIVE); PROTEIN,URINE 100 mg/dL (NEGATIVE); URINE SPECIFIC GRAVITY 1.034; UROBILINOGEN,URINE NEGATIVE mg/dL (<2.0)
[2018-12-05 04:40] LABS: ABSOLUTE BASOPHILS # (AUTO) 0.1 10^3/uL (0.0-0.2); ABSOLUTE EOSINOPHILS # (AUTO) 0.2 10^3/uL (0.0-0.6); ABSOLUTE LYMPHOCYTES (AUTO) 2.6 10^3/uL (0.5-4.7); ABSOLUTE MONOCYTES (AUTO) 0.8 10^3/uL (0.1-1.4); ABSOLUTE NEUT (AUTO) 6.5 10^3/uL (1.7-8.2); BASOPHILS % (AUTO) 0.8 % (0-2); HEMATOCRIT 27.6 % (36.0-47.0); HEMOGLOBIN 8.5 g/dL (12.0-15.5); LYMPHOCYTES % (AUTO) 25.6 % (13-45); MEAN CORPUSCULAR HEMOGLOBIN 20.6 pg (27.0-33.4); MEAN CORPUSCULAR HGB CONC 30.7 g/dL (32.0-36.0); MEAN CORPUSCULAR VOLUME 67 fl (80-97); MONOCYTES % (AUTO) 8.1 % (3-13); PLATELET COUNT 565 10^3/uL (150-450); RED CELL DISTRIBUTION WIDTH 19.6 % (11.5-14.0); SEGMENTED NEUTROPHILS % (AUTO) 63.5 % (42-78); TOTAL CELLS COUNTED % (AUTO) 100 %; WHITE BLOOD COUNT 10.3 10^3/uL (4.0-10.5)
== END 2018-12-05 04:12 | disposition left against medical advice (07) ==
LOC: ER 23:03
DX: N93.8 Other specified abnormal uterine and vaginal bleeding (principal); R10.30 Lower abdominal pain, unspecified
CPT/HCPCS: 36415; 81001; 81025; 84702; 85025; 99281

== ENCOUNTER 2019-02-01 16:37 | Emergency (ER) | payer SELFPAY ==
[2019-02-01 16:58] VITALS: BP 119/68
== END 2019-02-01 18:09 | disposition left against medical advice (07) ==
LOC: ER 16:37
DX: Z53.21 Procedure and treatment not carried out due to patient leaving prior to being seen by health care provider (principal)

== ENCOUNTER → 2019-06-04 | Outpatient (CLI) | payer MEDICAID ==
--- NOTE | 2019-06-04 10:18 | RADIOLOGY REPORT (SQ) ---
EXAM DESCRIPTION: U/S OB 14+ TRNABD 1GES W/O DOP COMPLETED DATE/TIME: 06/04/2019 10:07 am REASON FOR STUDY: ENCTR FOR SUPERVISION OF OTHER NORMAL , 1ST TRIMESTER (Z34.81) Z34.81 EN COUNTER FOR SUPRVSN OF NORMAL , FIRST TRIM COMPARISON: None. TECHNIQUE: Static and Dynamic grayscale imaging performed of gravid uterus using transabdominal appr oach. Additional selected color Doppler and spectral images recorded. All stored on PACS. LIMITATIONS: None. FINDINGS: FETUSES SEEN:1 EGA: 15 weeks 0 days Calculated using BPD,FL,HC,AC documented on images. No discrepancy with clinica l dates. MARCEL: 11/26/2019 EFW: Not calculated. PERCENTILE: Not applicable. Fetus less than or equal to 20 weeks gestation. LVP: 3.6 x 8.9 cm. PLACENTA: Posterior in location. Grade 1. PRESENTATION: Variable. ANATOMY: HEART RATE: 140 beats per minute. FOUR CHAMBER HEART: Not visualized. THREE VESSEL CORD: Not visualized. CORD INSERTION: Visualized. KIDNEYS AND BLADDER: Visualized. Appear normal. STOMACH: Visualized. Appears normal. SPINE: Normal as visualized. BRAIN AND LATERAL VENTRICLES: Visualized. Appear normal. OTHER: No other significant finding. MATERNAL ADNEXA: Maternal ovaries not visualized. CERVICAL LENGTH: 4.0 cm. Closed. OTHER: No other significant finding. IMPRESSION: LIVING INTRAUTERINE . ESTIMATED GESTATIONAL AGE 15 WEEK 0 DAYS. NO VISUALIZED ANOMALIES. Trimester of : 2ND TRIMESTER 13 WEEKS 1 DAY TO 27 WEEKS 6 DAYS. TECHNICAL DOCUMENTATION: JOB ID: [id number] [employer]- All Rights Reserved Reading location - IP/workstation name: [email or web address]
== END ==
LOC: RAD 08:10
PROVIDERS: ATTEND Midwife
DX: Z34.82 Encounter for supervision of other normal pregnancy, second trimester (principal); Z3A.15 15 weeks gestation of pregnancy
CPT/HCPCS: 76805

== ENCOUNTER → 2019-07-11 | Outpatient (CLI) | payer MEDICAID ==
--- NOTE | 2019-07-11 17:11 | RADIOLOGY REPORT (SQ) ---
EXAM DESCRIPTION: U/S OB 14+ TRNABD 1GES W/O DOP COMPLETED DATE/TIME: 07/11/2019 2:46 pm REASON FOR STUDY: Z34.82 ENCOUNTER FOR SUPRVSN OF NORMAL , SECOND TRIMESTER Z34.82 ENCOUNT ER FOR SUPRVSN OF NORMAL , SECOND TRI COMPARISON: 06/04/2019 TECHNIQUE: Static and Dynamic grayscale imaging performed of gravid uterus using transabdominal appr oach. Additional selected color Doppler and spectral images recorded. All stored on PACS. LIMITATIONS: None. FINDINGS: FETUSES SEEN:1 EGA: 20 weeks 2 days Calculated using BPD,FL,HC,AC documented on images. No discrepancy with clinica l dates. MARCEL: 11/26/2019 EFW: 351 grams PERCENTILE: Not applicable. Fetus less than or equal to 20 weeks gestation. FANI: LVP -3.4 cm PLACENTA: Posterior placenta. Question of circumvallate placenta. PRESENTATION: Cephalic. ANATOMY: HEART RATE: 162 beats per minute. FOUR CHAMBER HEART: Visualized. THREE VESSEL CORD: Yes. CORD INSERTION: Visualized. KIDNEYS AND BLADDER: Visualized. Appear normal. STOMACH: Visualized. Appears normal. SPINE: Normal as visualized. BRAIN AND LATERAL VENTRICLES: Visualized. Appear normal. OTHER: No other significant finding. MATERNAL ADNEXA: Maternal ovaries are visualized and unremarkable in appearance. The right ovary dino sures 2.5 x 1.3 x 2.1 cm. The left ovary measures 2.2 by 2.5 x 1.9 cm. CERVICAL LENGTH: 3.5 cm. Closed. OTHER: No other significant finding. IMPRESSION: LIVING INTRAUTERINE . ESTIMATED GESTATIONAL AGE: 20 weeks 2 days NO VISUALIZED ANOMALIES. QUESTION OF A CIRCUMVALLATE PLACENTA. Trimester of : Second trimester - 13 weeks 1 day to 27 weeks 6 days. TECHNICAL DOCUMENTATION: JOB ID: [id number] [employer]- All Rights Reserved Reading location - IP/workstation name: [email or web address]
== END ==
LOC: RAD 14:06
PROVIDERS: ATTEND Midwife
DX: Z34.82 Encounter for supervision of other normal pregnancy, second trimester (principal); Z3A.20 20 weeks gestation of pregnancy
CPT/HCPCS: 76805

== ENCOUNTER 2019-11-08 10:47 | Inpatient (IN) | payer MEDICAID ==
[2019-11-08 11:58] LABS: APPEARANCE,URINE CLEAR; BILIRUBIN,URINE NEGATIVE (NEGATIVE); COLOR,URINE YELLOW; GLUCOSE, URINE NEGATIVE (NEGATIVE); KETONES,URINE NEGATIVE (NEGATIVE); LEUKOCYTE ESTERASE,URINE NEGATIVE (NEGATIVE); NITRITE,URINE NEGATIVE (NEGATIVE); PROTEIN,URINE NEGATIVE (NEGATIVE); URINE SPECIFIC GRAVITY 1.018; UROBILINOGEN,URINE NEGATIVE mg/dL (<2.0)
[2019-11-08 12:05] LABS: EPITHELIALS (WET MOUNT) 3+ EPITHELIALS SEEN; T.VAGINALIS (WET MOUNT) NO TRICHOMONAS SEEN; WBCS (WET MOUNT) NO WBCS SEEN; YEAST (WET MOUNT) NO YEAST SEEN
[2019-11-08 12:16] LABS: URINE AMPHETAMINES SCREEN NEGATIVE; URINE BARBITURATES SCREEN NEGATIVE; URINE BENZODIAZEPINES SCREEN NEGATIVE; URINE COCAINE SCREEN NEGATIVE; URINE METHADONE SCREEN NEGATIVE; URINE PHENCYCLIDINE SCREEN NEGATIVE
[2019-11-08] MEDS ORDERED: RINGERS SOLUTION,LACTATED 1,000 ML IV PRN (12:19)
[2019-11-08 12:21] LABS: URINE MARIJUANA (THC) SCREEN UNCONFIRMED POSITIVE
[2019-11-08] MEDS ORDERED: DINOPROSTONE 10 MG VAGINAL INSERT.SR PV PRN (12:22)
--- NOTE | 2019-11-08 12:42 | Admission Physical ---
Datetime Report Generated by CPN: 11/08/2019 12:41 CURRENT ADMISSION Chief Complaint: Suspected Ruptured Membranes Admit Impression : Term, Intrauterine ; Ruptured Membranes Admit Impression- Other: SROM greated than 24 hours without the onset of labor Admit Plan: Admit to Unit; Initiate Labor Induction Protocol ALLERGIES Medication Allergies: No Medication Allergies: tomato (09/20/2018) Latex: Latex Allergies Food Allergies: tomato Environmental Allergies: bleach OBSTETRICAL HISTORY EDC: 11/26/2019 00:00 : 6 Para: 3 Term: 3 : 0 SAB: 2 IAB: 0 Ectopic: 0 Livin Cesareans: 0 VBACs: 0 Multiple Births: 0 Gestational Diabetes: No Rh Sensitization: No Incompetent Cervix: No SEAN: No Infertility: No ART Treatment: No Uterine Anomaly: No IUGR: No Hx Previous C/S: No Macrosomia: No Hx Loss/Stillborn: No PIH: No Hx : No Placenta Previa/Abruption: No Depression/PP Depression: No PTL/PROM: No Post Hemorrhage: No Current Procedures: Ultrasound SEE RECORDS Alcohol: No Marijuana : No Cocaine: No Other Illicit Drugs: No Cigarettes: Former Smoker. 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 Surgery: No Heart Disease: No Hosp/Surgery: Yes Autoimmune Disorder: No Anesthetic Complications: No Kidney Disease: No Abnormal Pap Smear: No Neuro/Epilepsy: No Psychiatric Disorders: No Other Medical Diseases: No Hepatitis/Liver Disease: No Significant Family History: No Varicosities/Phlebitis: No Trauma/Violence : No Thyroid Dysfunction: No Medical History Comments: childbirth INFECTIOUS HISTORY Gonorrhea: No Genital Herpes: No Chlamydia: No Tuberculosis: No Syphilis: No Hepatitis: No HIV/AIDS Exposure: No Rash or Viral Illness: No HPV: No PHYSICAL EXAM General: Normal HEENT: Normal Neurologic: Normal Thyroid: Normal Heart: Normal Lungs: Normal Breast: Normal Back: Normal Abdomen: Normal Genitourinary Exam: Normal Extremities: Normal DTRs: Normal Pelvic Type: Adequate Vital Signs: Reviewed VAGINAL EXAM Dilatation: 1 Effacement: 50 Station: -2 Contraction Comments: 0 MEMBRANES Membranes: Ruptured FETUS A EGA: 37.3 Monitoring: External US FHR- Baseline: 145 Variability: Moderate 6-25bpm Accelerations: 15X15 Decelerations: None FHR Category: Category I Admit Comment: presents c/o leaking fluid noted yesterday between 4-5 am. Did not come in until today for exam. +Actiprom swab. VE 50/-2, vtx. GBS unknown but will start PCN due to prolonged ROM. Dr Heaton is the Attending MD and agrees w/ plan of care. Will place a cervidil for cervical ripening and IOL PLANS FOR LABOR AND DELIVERY Labor and Delivery: None Pain Management: Natural Feeding Preference: Both Benefit of Breast Feed Discussed: Yes Circumcision: N/A INFORMED CONSENT Assignment: Adele Heaton MD Signature: with User ID: El : with User ID: El
[2019-11-08 12:54] LABS: ABSOLUTE EOSINOPHILS # (AUTO) 0.1 10^3/uL (0.0-0.6); ABSOLUTE LYMPHOCYTES (AUTO) 1.8 10^3/uL (0.5-4.7); ABSOLUTE MONOCYTES (AUTO) 0.7 10^3/uL (0.1-1.4); ABSOLUTE NEUT (AUTO) 6.8 10^3/uL (1.7-8.2); BASOPHILS % (AUTO) 0.4 % (0-2); EOSINOPHILS % (AUTO) 1.3 % (0-6); HEMOGLOBIN 8.9 g/dL (12.0-15.5); MEAN CORPUSCULAR HEMOGLOBIN 23.1 pg (27.0-33.4); MEAN CORPUSCULAR HGB CONC 31.7 g/dL (32.0-36.0); MEAN CORPUSCULAR VOLUME 73 fl (80-97); MONOCYTES % (AUTO) 7.6 % (3-13); PLATELET COUNT 350 10^3/uL (150-450); RED BLOOD COUNT 3.86 10^6/uL (3.72-5.28); RED CELL DISTRIBUTION WIDTH 16.7 % (11.5-14.0); SEGMENTED NEUTROPHILS % (AUTO) 71.7 % (42-78); TOTAL CELLS COUNTED % (AUTO) 100 %; WHITE BLOOD COUNT 9.5 10^3/uL (4.0-10.5)
[2019-11-08] MEDS ORDERED: PENICILLIN G POTASSIUM 5,000,000 UNIT in DEXTROSE 5%-WATER 100 ML IV ONE (13:00)
[2019-11-08] MEDS ORDERED: DINOPROSTONE 10 MG VAGINAL INSERT.SR ONE (13:10)
[2019-11-08] MEDS ORDERED: ONDANSETRON HCL INJ/PF 4 MG/2 ML SDV IV PRN (13:25)
[2019-11-08] MEDS ORDERED: ONDANSETRON HCL INJ/PF 4 MG/2 ML SDV ONE (13:27)
[2019-11-08 13:34] LABS: CHLAM PCR NOT DETECTED (NOT DETECT)
[2019-11-08] MEDS ORDERED: OXYTOCIN/0.9 % SODIUM CHLORIDE 30 UNIT/500 ML RTUINJ ONE (16:55)
[2019-11-08] MEDS ORDERED: OXYTOCIN/0.9 % SODIUM CHLORIDE 30 UNIT/500 ML RTUINJ IV PRN ×2 (17:03→17:10)
[2019-11-08] MEDS: PENICILLIN G POTASSIUM 2,500,000 UNIT in DEXTROSE 5%-WATER 50 ML IV SCH ×2 (17:58→21:46)
[2019-11-08] MEDS ORDERED: LIDOCAINE 1% INJ-PF (10 MG/ML) 30 ML SDV ONE (19:30)
[2019-11-08] MEDS ORDERED: MISOPROSTOL 0.2 MG TABLET ONE (19:30)
[2019-11-09] MEDS ORDERED: OXYTOCIN/0.9 % SODIUM CHLORIDE 30 UNIT/500 ML RTUINJ IV PRN (00:17)
[2019-11-09] MEDS ORDERED: DIPH/PERTUSS(ACELL)/TETANUS VAC/PF 0.5 ML SYR (>=10YO) IM PRN (00:17)
[2019-11-09] MEDS ORDERED: DIPHENHYDRAMINE HCL 25 MG CAPSULE PO PRN (00:17)
[2019-11-09] MEDS ORDERED: MEASLES,MUMPS&RUBELLA VACC/PF 0.5 ML VIAL SUBCUT PRN (00:17)
[2019-11-09] MEDS ORDERED: ZOLPIDEM TARTRATE 5 MG TABLET PO PRN (00:17)
[2019-11-09] MEDS ORDERED: MAGNESIUM HYDROXIDE SUSP 30 ML UDCUP PO PRN (00:17)
[2019-11-09] MEDS ORDERED: ACETAMINOPHEN WITH CODEINE #3 TABLET PO PRN (00:17)
[2019-11-09] MEDS ORDERED: BENZOCAINE/MENTHOL AEROSOL SPRAY 56 ML TOP PRN (00:17)
[2019-11-09] MEDS ORDERED: NA PHOS,M-B/NA PHOS,DI-BA (ADULT) 133 ML ENEMA PR PRN (00:17)
[2019-11-09] MEDS ORDERED: ACETAMINOPHEN 325 MG TABLET PO PRN (00:17)
[2019-11-09] MEDS ORDERED: ACETAMINOPHEN 650 MG SUPP.RECT PR PRN (00:17)
[2019-11-09] MEDS ORDERED: GLYCERIN/WITCH HAZEL LEAF 1 EACH MED..WIPE TP PRN (00:17)
[2019-11-09] MEDS ORDERED: PROMETHAZINE HCL 25 MG SUPP.RECT PR PRN (00:17)
[2019-11-09] MEDS ORDERED: PSEUDOEPHEDRINE HCL 30 MG TABLET PO PRN (00:17)
[2019-11-09] MEDS ORDERED: DIBUCAINE 1% OINTMENT 28 GM TP PRN (00:17)
[2019-11-09] MEDS ORDERED: PROMETHAZINE HCL INJ 25 MG/1 ML VIAL IV PRN (00:17)
[2019-11-09] MEDS ORDERED: PROMETHAZINE HCL 25 MG TABLET PO PRN (00:17)
[2019-11-09] MEDS ORDERED: IBUPROFEN 800 MG TABLET ONE (00:30)
[2019-11-09] MEDS ORDERED: ACETAMINOPHEN WITH CODEINE #3 TABLET ONE (00:30)
[2019-11-09] MEDS: ACETAMINOPHEN WITH CODEINE #3 TABLET PO PRN (00:35)
--- NOTE | 2019-11-09 00:50 | Warning Signs in Babies ---
VOD Warning Signs Datetime Report Generated by [facility]: 11/09/2019 00:49 VOD#608 -Warning Signs in Babies: Needs to be viewed. (11/08/2019 11:23:Jo Moreno RN)
[2019-11-09] MEDS: PENICILLIN G POTASSIUM 2,500,000 UNIT in DEXTROSE 5%-WATER 50 ML IV SCH (01:51)
--- NOTE | 2019-11-09 02:52 | Delivery Summary ---
Del Sum A-C Datetime Report Generated by CPN: 11/09/2019 02:51 DELIVERY PERSONNEL DELIVERY PERSONNEL: [id number] Delivery Doctor:: Karon Corley CNM Labor and Delivery Nurse:: Jo Moreno RNsenior firmware engineer Nurse:: Britany Manzo RN Nursery Nurse:: Tammy Branch RN Nursery Nurse:: Petty Barr RN MATERNAL INFORMATION Delivery Anesthesia: None Medications After Delivery: Pitocin 30 Units in 500ml NS/D5W Delivery QBL: 100 Maternal Complications: Other Complication Details: prolonged rupture of membranes Provider Comments: of VFI, delivered w/ tight NC x 1, unable to deliver. Crying and placed on pts abdoman in stable condition. Cord clamped after one minute, cord blood collected. Placenta S/C/I, IV Pitocin infusing, ff w/ decreased lochia. Perineum intact. QBL 100ml. Apgars 8,9. Pt plans to breast and bottle feed. Attending MD is Dr Heaton LABOR SUMMARY EDC: 11/26/2019 00:00 No. Babies in Womb: 1 Attempted: No Labor Anesthesia: None LABOR INFORMATION Reason for Induction: Not Applicable Onset of Labor: 11/08/2019 21:00 Complete Dilatation: 11/09/2019 00:02 Cervical Ripening Agents: Cervidil Oxytocin: Augmentation Group B Beta Strep: positive Antibiotics # of Doses: 3 Antibiotics Time of Last Dose: 2145 Name of Antibiotic Given: penicillin Steroids Given: None Reason Steroids Not Administered: Not Applicable MEMBRANES Membranes Rupture Method: Spontaneous Rupture of Membranes: 11/08/2019 04:00 Length of Rupture (hr): 20.17 Amniotic Fluid Color: Clear Amniotic Fluid Amount: Large Amniotic Fluid Odor: Normal STAGES OF LABOR Stage 1 hr: 3 Stage 1 min: 2 Stage 2 hr: 0 Stage 2 min: 8 Stage 3 hr: 0 Stage 3 min: 3 Total Time in Labor hr: 3 Total Time in Labor min: 13 VAGINAL DELIVERY Episiotomy: None Laceration #1: None Laceration Extension #1: N/A Laceration Repair: Not Applicable Sponge Count Correct: N/A Sharps Count Correct: N/A CSECTION DELIVERY Primary Indication: N/A Secondary Indication: N/A CSection Incidence: N/A Labor: N/A Elective: N/A CSection Incision: N/A BABY A INFORMATION Delivery Date/Time: 11/09/2019 00:10 Method of Delivery: Vaginal Nurse Controlled Delivery: No Born in Route : No : N/A Forceps: N/A Vacuum Extraction: N/A Shoulder Dystocia : No PRESENTATION/POSITION BABY A Presentation: Cephalic Cephalic Presentation: Vertex Vertex Position: Left Occipital Anterior Breech Presentation: N/A PLACENTA INFORMATION BABY A Placenta Delivery Time : 11/09/2019 00:13 Placenta Method of Delivery: Spontaneous Placenta Status: Delivered SCORES BABY A Heart Rate 1 min: >100 bpm Resp Effort 1 min: Slow, Irregular Reflex Irritability 1 min: Cough or Sneeze or Pulls Away Muscle Tone 1 min: Active Motion Color 1 min: Body Hebo, Extremities Blue Resuscitation Effort 1 min: Tactile Stimulation SCORE 1 MIN: 8 Heart Rate 5 min: >100 bpm Resp Effort 5 min: Good Cry Reflex Irritability 5 min: Cough or Sneeze or Pulls Away Muscle Tone 5 min: Active Motion Color 5 min: Body Hebo, Extremities Blue Resuscitation Effort 5 min: Tactile Stimulation SCORE 5 MIN: 9 INFANT INFORMATION BABY A Gestational Age at Delivery: 37.4 Gestational Status: Early Term- 37- 38.6 Weeks Infant Outcome : Liveborn Infant Condition : Stable Sex: Female IDENTIFICATION BABY A Infant Verification Date/Time: 11/09/2019 02:02 ID Band Number: [id number] Mother's Name Verified: Yes Infant RN Verifying : Chalman, A. RN Additional Verifying Personnel: Ring, B. RN WEIGHT/LENGTH BABY A Infant Birthweight (gm): 2360 Infant Weight (lb): 5 Infant Weight (oz): 3 Length (in): 18.75 Infant Length (cm): 47.63 CORD INFORMATION BABY A No. Cord Vessels: 3 Nuchal Cord : N/A Cord Blood Taken: Yes-For Storage (Mom's Blood type +) Infant Suction: Mouth; Nose ASSESSMENT BABY A Complications: Other Infant Complications- Other: Terminal meconium Physical Findings at Delivery: Molding of the Head Physical Findings- Other: see full nursery microphone operator Respirations: Appears Normal Skin to Skin: No Dry Wall Plasterer/ALS Called : No Infant Care By: Inés Manzo RN _ J. Jose Carlos RN Transferred To: Remains with Mother BABY B INFORMATION : N/A SIGNATURES Assignment: Adele Heaton MD Signature: with User ID: El : with User ID: El
[2019-11-09] MEDS: IBUPROFEN 800 MG TABLET PO SCH ×3 (06:11→22:30)
--- NOTE | 2019-11-09 10:21 | PDOC PROGRESS REPORT ---
Subjective-OB Progress Note for:: 11/09/19 - Delivery Day, UOB voiding, baby in NBN. vacation planner in place w/ CPS involved. +THC this admission, A+, Rubella Immune, bottle feeding Physical Exam (OB) Vital Signs: Temp Pulse Resp BP Pulse Ox 97.5 F 58 L 16 112/65 100 11/09/19 07:30 11/09/19 07:30 11/09/19 07:30 11/09/19 07:30 11/09/19 07:30 Intake & Output 11/08/19 11/09/19 11/10/19 06:59 06:59 06:59 Weight 100.1 kg - PIH/Pre-Eclampsia Clonus: Negative Headache: Absent Epigastric Pain: No Visual Changes: No - Lochia Lochia Amount: Scant < 10 ml Lochia Color: Rubra/Red - Abdomen Description: Soft, Flat Hernia Present: No Fundal Description: Firm, Midline Fundal Height: u/u - u/2 - Respiratory Respiratory Status: No respiratory distress - Genitourinary Genitourinary Note: voiding - Extremities Upper extremity: Normal inspection Lower extremities: Normal inspection Objective-Diagnostic Laboratory: 11/08/19 12:40 11/08/19 11/08/19 11/08/19 10:58 12:40 12:40 WBC 9.5 RBC 3.86 Hgb 8.9 L Hct 28.0 L MCV 73 L MCH 23.1 L MCHC 31.7 L RDW 16.7 H Plt Count 350 Seg Neutrophils % 71.7 Urine Color YELLOW Urine Appearance CLEAR Urine pH 7.0 Ur Specific [place] 1.018 Urine Protein NEGATIVE Urine Glucose (UA) NEGATIVE Urine Ketones NEGATIVE Urine Blood NEGATIVE Urine Nitrite NEGATIVE Ur Leukocyte Esterase NEGATIVE Blood Type A POSITIVE Antibody Screen NEGATIVE Assessment and Plan(PN) - Assessment and Plan (1) Acute blood loss anemia Is this a current diagnosis for this admission?: Yes (2) Cannabis abuse Is this a current diagnosis for this admission?: Yes (3) Limited care Qualifiers: Trimester: third trimester Qualified Code(s): O09.33 - Supervision of with insufficient care, third trimester Is this a current diagnosis for this admission?: Yes (4) Vaginal delivery Is this a current diagnosis for this admission?: Yes - Time Spent with Patient Time with patient: Less than 15 minutes Medications reviewed and adjusted accordingly: Yes - Disposition Anticipated Discharge: Home Within: within 24 hours
[2019-11-09] MEDS: FAMOTIDINE 20 MG TABLET PO SCH ×2 (11:25→22:30)
[2019-11-09] MEDS: FERROUS SULFATE 325 MG TABLET PO SCH ×2 (11:26→17:52)
[2019-11-09] MEDS: PRENATAL VITAMIN W DHA CAPSULE PO SCH (11:26)
[2019-11-09] MEDS: DOCUSATE SODIUM 100 MG CAPSULE PO SCH ×2 (11:26→17:52)
[2019-11-09] MEDS: SENNOSIDES/DOCUSATE 8.6-50 MG 1 EACH TABLET PO SCH (17:51)
[2019-11-10] MEDS: IBUPROFEN 800 MG TABLET PO SCH ×3 (07:08→22:01)
[2019-11-10 07:38] LABS: HEMATOCRIT 28.9 % (36.0-47.0); HEMOGLOBIN 9.1 g/dL (12.0-15.5); MEAN CORPUSCULAR HEMOGLOBIN 23.3 pg (27.0-33.4); MEAN CORPUSCULAR HGB CONC 31.6 g/dL (32.0-36.0); MEAN CORPUSCULAR VOLUME 74 fl (80-97); PLATELET COUNT 362 10^3/uL (150-450); RED BLOOD COUNT 3.92 10^6/uL (3.72-5.28); WHITE BLOOD COUNT 10.1 10^3/uL (4.0-10.5)
--- NOTE | 2019-11-10 10:33 | PDOC PROGRESS REPORT ---
Subjective-OB Progress Note for:: 11/10/19 - PP Day #1, pt doing well, in NBN w/ baby, UOB, voiding, raw material planner and psychologist social involved. Pt states trying to make arrangements to stay w/ an aunt after discharge, so she can take baby home w/ her. Physical Exam (OB) Vital Signs: Temp Pulse Resp BP Pulse Ox 97.9 F 61 14 120/61 100 11/10/19 08:11 11/10/19 08:11 11/10/19 08:11 11/10/19 08:11 11/10/19 08:11 Intake & Output 11/09/19 11/10/19 11/11/19 06:59 06:59 06:59 Weight 100.1 kg - General General Appearance: Appears well, Alert In distress: None - PIH/Pre-Eclampsia Clonus: Negative Headache: Absent Epigastric Pain: No Visual Changes: No - Lochia Lochia Amount: Small 10-25 ml Lochia Color: Rubra/Red - Abdomen Description: Soft Hernia Present: No Fundal Description: Firm, Midline Fundal Height: u/u - u/2 - Respiratory Respiratory Status: No respiratory distress - Genitourinary Genitourinary Note: voiding - Extremities Upper extremity: Normal inspection Lower extremities: Normal inspection - Neurological Cognition: Normal Orientation: AAOx4 Neurological Note: ? almost manic vs ADHD, pt denies any psych history though - Skin Skin Temperature: Warm Skin Moisture: Dry Objective-Diagnostic Laboratory: 11/10/19 07:09 11/10/19 07:09 WBC 10.1 RBC 3.92 Hgb 9.1 L Hct 28.9 L MCV 74 L MCH 23.3 L MCHC 31.6 L RDW 17.0 H Plt Count 362 11/08/19 12:40 Vaginal/Anorectal Group B Streptococcus Culture - Final NO GROUP B STREPTOCOCCUS RECOVERED Assessment and Plan(PN) - Assessment and Plan (1) Acute blood loss anemia Is this a current diagnosis for this admission?: Yes (2) Cannabis abuse Is this a current diagnosis for this admission?: Yes (3) Limited care Qualifiers: Trimester: third trimester Qualified Code(s): O09.33 - Supervision of with insufficient care, third trimester Is this a current diagnosis for this admission?: Yes (4) Vaginal delivery Is this a current diagnosis for this admission?: Yes Plan:: Routine PP orders, raw material planner in place, ambulation encouraged - Time Spent with Patient Time with patient: Less than 15 minutes Medications reviewed and adjusted accordingly: Yes - Disposition Anticipated Discharge: Home Within: within 24 hours
[2019-11-10] MEDS: FAMOTIDINE 20 MG TABLET PO SCH ×2 (12:10→22:01)
[2019-11-10] MEDS: DOCUSATE SODIUM 100 MG CAPSULE PO SCH ×2 (12:10→18:00)
[2019-11-10] MEDS: SENNOSIDES/DOCUSATE 8.6-50 MG 1 EACH TABLET PO SCH (12:10)
[2019-11-10] MEDS: PRENATAL VITAMIN W DHA CAPSULE PO SCH (12:11)
[2019-11-10] MEDS: FERROUS SULFATE 325 MG TABLET PO SCH ×2 (12:11→18:00)
[2019-11-11] MEDS: ACETAMINOPHEN WITH CODEINE #3 TABLET PO PRN (01:53)
[2019-11-11] MEDS: IBUPROFEN 800 MG TABLET PO SCH (05:45)
[2019-11-11 08:53] VITALS: BP 128/88
--- NOTE | 2019-11-11 10:30 | PDOC DISCHARGE SUMMARY ---
Impression - Admit/DC Date/PCP Admission Date/Primary Care Provider: 11/08/19 12:10 IVETTE BLACKBURN CNM Discharge Date: 11/11/19 - PP Day #2, A+, rubella immune, bottle feeding, UOB, voiding, no complaints - Discharge Diagnosis (1) Acute blood loss anemia Is this a current diagnosis for this admission?: Yes (2) Cannabis abuse Is this a current diagnosis for this admission?: Yes (3) Limited care Is this a current diagnosis for this admission?: Yes (4) Vaginal delivery Is this a current diagnosis for this admission?: Yes - Additional Information Resuscitation Status: Full Code Discharge Diet: Regular Discharge Activity: Activity As Tolerated, Balance Activity w/Rest, No Lifting Over 10 Pounds, Pelvic Rest, No tub bath Referrals: IVETTE BLACKBURN CNM [Primary Care Provider] - Prescriptions: Ferrous Sulfate [Feosol 325 mg Tablet] 325 mg PO DAILY 30 Days #30 tablet Ibuprofen [Motrin 800 mg Tablet] 800 mg PO Q8 #60 tablet Home Medications: Ferrous Sulfate [Feosol 325 mg Tablet] 325 mg PO DAILY 30 Days #30 tablet 11/11/19 Ibuprofen [Motrin 800 mg Tablet] 800 mg PO Q8 #60 tablet 11/11/19 Vit/Dha [ Multi + Dha Capsule] 1 cap PO DAILY capsule 11/11/19 HPI Reason(s) for Admission: Onset of Labor, Group B Strep Positive Procedures: Ultrasound Procedure(s) Note: limited PNC Intrapartum Procedure(s): Spontaneous Vaginal Delivery Complication(s): Laceration-Vaginal Laceration-Degree: 1st Results Laboratory Results: WBC 10.1 10^3/uL (4.0-10.5) 11/10/19 07:09 RBC 3.92 10^6/uL (3.72-5.28) 11/10/19 07:09 Hgb 9.1 g/dL (12.0-15.5) L 11/10/19 07:09 Hct 28.9 % (36.0-47.0) L 11/10/19 07:09 MCV 74 fl (80-97) L 11/10/19 07:09 MCH 23.3 pg (27.0-33.4) L 11/10/19 07:09 MCHC 31.6 g/dL (32.0-36.0) L 11/10/19 07:09 RDW 17.0 % (11.5-14.0) H 11/10/19 07:09 Plt Count 362 10^3/uL (150-450) 11/10/19 07:09 Lymph % (Auto) 19.0 % (13-45) 11/08/19 12:40 Wood % (Auto) 7.6 % (3-13) 11/08/19 12:40 Eos % (Auto) 1.3 % (0-6) 11/08/19 12:40 Baso % (Auto) 0.4 % (0-2) 11/08/19 12:40 Absolute Neuts (auto) 6.8 10^3/uL (1.7-8.2) 11/08/19 12:40 Absolute Lymphs (auto) 1.8 10^3/uL (0.5-4.7) 11/08/19 12:40 Absolute Monos (auto) 0.7 10^3/uL (0.1-1.4) 11/08/19 12:40 Absolute Eos (auto) 0.1 10^3/uL (0.0-0.6) 11/08/19 12:40 Absolute Basos (auto) 0.0 10^3/uL (0.0-0.2) 11/08/19 12:40 Seg Neutrophils % 71.7 % (42-78) 11/08/19 12:40 Urine Color YELLOW 11/08/19 10:58 Urine Appearance CLEAR 11/08/19 10:58 Urine pH 7.0 (5.0-9.0) 11/08/19 10:58 Ur Specific Gordon 1.018 11/08/19 10:58 Urine Protein NEGATIVE mg/dL (NEGATIVE) 11/08/19 10:58 Urine Glucose (UA) NEGATIVE mg/dL (NEGATIVE) 11/08/19 10:58 Urine Ketones NEGATIVE mg/dL (NEGATIVE) 11/08/19 10:58 Urine Blood NEGATIVE (NEGATIVE) 11/08/19 10:58 Urine Nitrite NEGATIVE (NEGATIVE) 11/08/19 10:58 Urine Bilirubin NEGATIVE (NEGATIVE) 11/08/19 10:58 Urine Urobilinogen NEGATIVE mg/dL (<2.0) 11/08/19 10:58 Ur Leukocyte Esterase NEGATIVE (NEGATIVE) 11/08/19 10:58 Urine Ascorbic Acid NEGATIVE (NEGATIVE) 11/08/19 10:58 Membranes Rupture POSITIVE (NEGATIVE) H 11/08/19 11:45 Epi Cells (Wet Prep) 3+ EPITHELIALS SEEN 11/08/19 11:45 Trichomonas (Wet Prep) NO TRICHOMONAS SEEN 11/08/19 11:45 Vaginal WBC NO WBCS SEEN 11/08/19 11:45 Vaginal Yeast NO YEAST SEEN 11/08/19 11:45 Urine Opiates Screen NEGATIVE 11/08/19 10:58 Urine Methadone Screen NEGATIVE 11/08/19 10:58 Ur Barbiturates Screen NEGATIVE 11/08/19 10:58 Ur Phencyclidine Scrn NEGATIVE 11/08/19 10:58 Ur Amphetamines Screen NEGATIVE 11/08/19 10:58 U Benzodiazepines Scrn NEGATIVE 11/08/19 10:58 Urine Cocaine Screen NEGATIVE 11/08/19 10:58 U Marijuana (THC) Screen UNCONFIRMED POSITIVE 11/08/19 10:58 Chlamydia DNA (PCR) NOT DETECTED (NOT DETECT) 11/08/19 11:45 N.gonorrhoeae DNA (PCR) NOT DETECTED (NOT DETECT) 11/08/19 11:45 Blood Type A POSITIVE 11/08/19 12:40 Antibody Screen NEGATIVE 11/08/19 12:40 Plan Plan of Treatment: d/c home, pt to f/up with [facility] in 4 wks for PP check-up Time Spent: Less than 30 Minutes
== END 2019-11-11 10:54 | disposition home or self-care (01) | DRG 806 ==
LOC: LC 10:47 → LR 12:10 → 2S 11-09 02:24
PROVIDERS: ADMIT Obstetrics & Gynecology; ATTEND Obstetrics & Gynecology
PROC: 10E0XZZ Delivery of Products of Conception, External Approach (ICD-10-PCS; principal; 2019-11-09)
DX: O42.02 Full-term premature rupture of membranes, onset of labor within 24 hours of rupture (principal); O99.324 Drug use complicating childbirth; Z37.0 Single live birth; O69.1XX0 Labor and delivery complicated by cord around neck, with compression, not applicable or unspecified; O99.824 Streptococcus B carrier state complicating childbirth; F12.10 Cannabis abuse, uncomplicated; O99.02 Anemia complicating childbirth; D64.89 Other specified anemias; O99.334 Smoking (tobacco) complicating childbirth; F17.210 Nicotine dependence, cigarettes, uncomplicated; O75.9 Complication of labor and delivery, unspecified; F90.9 Attention-deficit hyperactivity disorder, unspecified type; Z3A.37 37 weeks gestation of pregnancy
CPT/HCPCS: 36415; 80307; 80349; 81005; 84112; 85025; 85027; 86592; 86850; 86900; 86901; 87081; 87210; 87491; 87591; 88307; 94760; G0480; J2405; J2540; J2590; J3490; J7060